=== PATIENT | male | born 1955 | race Caucasian/White ===

== ENCOUNTER → 2018-12-16 08:16 | Outpatient (CLI) | payer BC, SELFPAY ==
--- NOTE | 2018-12-16 08:22 | CT_ITS ---
CT lung screening EXAM: CT LUNG LOW DOSE WO CONTRAST HISTORY: ITS.REASON: H/O NICOTINE DEPENDENCE ORDERING PHYSICIAN: Jolanta Aparicio APRN PATIENT AGE: 63 years COMPARISON: None TECHNIQUE: The exam was performed on a GE Light Speed [address] scanner using 2.90 mGy CTDI. A low dose helical CT CHEST was performed on a multi-detector scanner. All CT scans at the facility use one or more dose reduction, viz: automated exposure control, ma/kV adjustment per patient size (including targeted exams where dose is matched to indication, i.e. head), or iterative reconstruction technique. The LDCT was performed in a facility that meets the criteria for the screening program. Data regarding this exam was submitted to ACR which is an approved registry. The order for this exam indicates that it came as a result of a lung cancer screening counseling shard decision-making visit that included all the elements required of such a visit including smoking cessation. The radiologist interpreting this exam meets the CMS criteria for the LDCT lung cancer screening program. The exam is reported using the Lung-RADS classification scale and reported to the ACR registry. NOTE: This study was performed for the specific purposes of lung cancer screening and is not an alternative to diagnostic chest CT. RADIATION DOSE: CTDI vol(CT dose Index-volume) = 2.90mG DLP (Dose Length Product) = 107.07 mGcm FINDINGS: There are mild paraseptal emphysematous changes. Old granulomatous disease Coronary artery calcifications No suspicious nodules. 4 cm left adrenal adenoma IMPRESSION: 1. Lung RADS Category: 2, benign 2. Other findings: As above RECOMMENDATIONS: 12 month LDCT follow-up
== END ==
PROVIDERS: PCP Internal Medicine Adolescent Medicine; Referring Provider Nurse Practitioner Family; Visit Provider Nurse Practitioner Family
DX: Z12.2 Encounter for screening for malignant neoplasm of respiratory organs (principal); Z87.891 Personal history of nicotine dependence

== ENCOUNTER → 2020-01-04 16:12 | Outpatient (CLI) | payer BC, SELFPAY ==
--- NOTE | 2020-01-04 | CA_ITS ---
APPROVED REPORT Left Lower Extremity Venous Study for DVT. Aircraft Body Repairer: Vivian Duffy, RT(R) Indications Lower Extremity Pain: Lower Extremity Edema: Left Current Smoker Risk Factors Patient denies trauma. States his left calf began swelling 1 week ago with pain primarily in posterior left calf. Vein Imaging CFV (L): compressive, spontaneous, phasic, augmentation FEM (L): compressive, spontaneous, phasic, augmentation POP (L): compressive, spontaneous, phasic, augmentation PTV (L): Compressible GSV (L): compressive, spontaneous, phasic, augmentation SSV (L): Compressible Peroneals (L):Compressible GAS (L): Compressible Conclusion No evidence of DVT or superficial thrombophlebitis in the veins scanned of the left lower extremity. Nonvascularized hypoechoic mass visualized in the popliteal fossa aspect of the left knee wiyh low level echos. This area extends to the medial aspect of the left knee. Consistent with complex bakers cyst , measuring 3.3 x 1.2 cm transverse, and 4.07 x 1.12 cm longitudinally. Hematoma included in differential diagnosis Critical Notification Physician Notified Date: 01/04/2020 Time: 17:04 Physician Name: Dr. Griffin Report Read Back Electronically signed by : Boston Murguia MD 01/05/2020 16:13:37
== END ==
PROVIDERS: PCP Internal Medicine Adolescent Medicine; Visit Provider Internal Medicine Adolescent Medicine
DX: I80.02 Phlebitis and thrombophlebitis of superficial vessels of left lower extremity (principal)
CPT/HCPCS: 93971

== ENCOUNTER → 2020-01-07 07:50 | Outpatient (CLI) | payer BC, SELFPAY ==
--- NOTE | 2020-01-07 07:56 | CT_ITS ---
PROCEDURE: CT LUNG SCREENING CLINICAL INDICATION: H/O NICOTINE DEPENDENCE 42 pack year smoking history. COMPARISON: CT LUNGSCREEN CT lung screening from 12/16/2018 TECHNIQUE: The exam was performed on a GE Light Speed [address] scanner using 2.90 mGy CTDI. A low dose helical CT CHEST was performed on a multi-detector scanner. All CT scans at the facility use one or more dose reduction, viz: automated exposure control, ma/kV adjustment per patient size (including targeted exams where dose is matched to indication, i.e. head), or iterative reconstruction technique. The LDCT was performed in a facility that meets the criteria for the screening program. Data regarding this exam was submitted to ACR which is an approved registry. The order for this exam indicates that it came as a result of a lung cancer screening counseling shard decision-making visit that included all the elements required of such a visit including smoking cessation. The radiologist interpreting this exam meets the CMS criteria for the LDCT lung cancer screening program. The exam is reported using the Lung-RADS classification scale and reported to the ACR registry. NOTE: This study was performed for the specific purposes of lung cancer screening and is not an alternative to diagnostic chest CT. RADIATION DOSE: CTDI vol(CT dose Index-volume) = 2.90mG DLP (Dose Length Product) = 113.07 mGcm Lung Rads Category: FINDINGS: COPD with scattered areas of scarring and evidence of old granulomatous disease. OTHER FINDINGS: Coronary artery calcifications. There is a left adrenal mass with an average density of -17 Hounsfield units. The nodule measures 4 cm not significantly changed consistent with an adenoma. There is a 4 mm hypodensity in the central up attic dome and 1 in the right hepatic lobe posteriorly measuring 6 mm. There is a too small to categorize.. The 6 mm nodule may be slightly larger and the 4 mm nodule is not readily apparent on the previous study possibly due to the technique. Consider six-month CT follow-up of the liver with hemangioma protocol. IMPRESSION: Lung rads category 1-. Recommend annual LD CT. Two indeterminate hepatic lesions. Suggest [address] follow-up with hemangioma protocol Dictated by: Boston Murguia MD 01/17/2020 09:21 Boston Murguia MD in [place] 01/17/2020 09:21
== END ==
PROVIDERS: PCP Internal Medicine Adolescent Medicine; Visit Provider Nurse Practitioner Family
DX: Z87.891 Personal history of nicotine dependence (principal); Z12.2 Encounter for screening for malignant neoplasm of respiratory organs

== ENCOUNTER → 2020-01-21 09:00 | Outpatient (CLI) | payer BC, SELFPAY ==
--- NOTE | 2020-01-21 09:03 | XR_ITS ---
PROCEDURE: XR KNEE LT 4V CLINICAL INDICATION: left knee pain COMPARISON: No exams were available for comparison FINDINGS: No fracture or dislocation. No lytic or blastic change. There is normal mineralization. There is mild joint space narrowing medially and there is minor spurring of the tibial spines. The patella is intact I see no definite effusion. There is moderate arthrosclerotic calcification of the superficial femoral artery and mild calcification of the popliteal artery. IMPRESSION: Minor degenerate changes of the medial joint compartment Dictated by: Dr. Javier Charles MD 01/21/2020 09:59 Dr. Javier Charles MD in [place] 01/21/2020 09:59
== END ==
PROVIDERS: PCP Internal Medicine Adolescent Medicine; Visit Provider Orthopaedic Surgery
DX: M25.562 Pain in left knee (principal)
CPT/HCPCS: 73564

== ENCOUNTER → 2020-05-01 19:05 | Outpatient (CLI) | payer BC, SELFPAY ==
--- NOTE | 2020-05-01 19:15 | XR_ITS ---
PROCEDURE: XR CHEST PORTABLE CLINICAL HISTORY: EXPOSURE TO COVID-19 COMPARISON: CT CT LUNG SCREENING from 01/07/2020 FINDINGS: The cardiomediastinal silhouette and pulmonary vascularity are within normal limits. Changes of COPD. There is vague increased density overlying the left lower lobe. This could be due to soft tissue attenuation or ground-glass infiltrate. Follow-up suggested to confirm stability or resolution. Calcified granuloma is present in the right upper lobe. No acute bony abnormalities. IMPRESSION: Vague increased density overlying the left lower lung zone and could be related to ground-glass infiltrate versus artifact from overlying soft tissue attenuation. Follow-up suggested Dictated by: Boston Murguia MD 05/02/2020 06:34 Boston Murguia MD in [place] 05/02/2020 06:34
[2020-05-03 15:16] LABS: Covid-19 Nasal PCR Sendout Lex Positive
== END ==
PROVIDERS: PCP Internal Medicine Adolescent Medicine; Visit Provider Nurse Practitioner Family
DX: Z20.828 Contact with and (suspected) exposure to other viral communicable diseases (principal); U07.1 COVID-19
CPT/HCPCS: 71045; U0004

== ENCOUNTER → 2020-12-13 17:02 | Outpatient (CLI) | payer BC, SELFPAY ==
[2020-12-13 17:23] LABS: Alanine Aminotransferase 21 U/L (12-78); Albumin Level 4.3 g/dl (3.5-5.0); Albumin/Globulin Ratio 1.8 (1.1-1.8); Alkaline Phosphatase 63 U/L (38-126); Anion Gap 14.2 mEq/L (5-15); Aspartate Amino Transferase 50 U/L (17-59); Bilirubin,Total 0.5 mg/dl (0.2-1.3); Blood Urea Nitrogen 26 mg/dl (9-20); Carbon Dioxide 27 mmol/L (22.0-30.0); Chloride 102 mmol/L (98-107); Chol/HDL Ratio 3.3 (1-3.5); Cholesterol 140 mg/dl (140-200); Estimated Glomerular Filt Rate 61 ml/min (>60); GFR (African American) 74 ML/MIN (>60); Globulin 2.4 g/dL (1.3-3.2); Glucose 157 mg/dl (74-100); HDL Cholesterol 43 mg/dl (40-60); Potassium 5.2 mmoL/L (3.5-5.1); Sodium 138 mmol/L (136-145); Total Protein,Serum 6.7 g/dl (6.3-8.2); Triglycerides 77 mg/dl (30-150); VLDL Cholesterol 15 mg/dL (0-40)
[2020-12-13 17:33] LABS: Hemoglobin A1C 7.4 % (4.0-6.0)
[2020-12-13 17:34] LABS: Direct LDL Cholesterol 81.32 mg/dL (100-129)
== END ==
PROVIDERS: Visit Provider Nurse Practitioner Family
DX: I10 Essential (primary) hypertension (principal); E78.5 Hyperlipidemia, unspecified; E11.9 Type 2 diabetes mellitus without complications; Z79.84 Long term (current) use of oral hypoglycemic drugs
CPT/HCPCS: 80053; 80061; 83036

== ENCOUNTER → 2022-12-12 15:29 | Outpatient (CLI) | payer BC, SELFPAY | PROVIDERS: PCP Internal Medicine Adolescent Medicine; Visit Provider Internal Medicine Adolescent Medicine | DX: G47.33 Obstructive sleep apnea (adult) (pediatric) (principal); R06.83 Snoring; I10 Essential (primary) hypertension; E66.9 Obesity, unspecified | CPT/HCPCS: G0399 ==

== ENCOUNTER → 2022-12-13 07:07 | Outpatient (CLI) | payer BC, SELFPAY ==
--- NOTE | 2022-12-13 07:11 | CT_ITS ---
FINAL REPORT TECHNIQUE: Axial images were obtained from the lung apex to the mid abdomen by computed tomography. This study was performed with techniques to keep radiation doses as low as reasonably achievable (ALARA). Individualized dose reduction techniques using automated exposure control or adjustment of mA and/or kV according to the patient's size were employed. CLINICAL HISTORY: H/O TOBACCO USE, smoker for 45 years, 1ppd FINDINGS: CHEST CT LOW DOSE CTDI vol (mGy): 2.80 DLP (mGy-cm): 110.72 There is severe left coronary artery calcification. There is no axillary adenopathy. There is no hilar or mediastinal adenopathy. The heart is normal in size. There is no pericardial or pleural effusion. There is mild emphysema and mild scarring. Several calcified granulomas are identified. Small presumed hepatic cysts seen on the prior are not visualized on the current exam. There is a stable 40 mm low-attenuation left adrenal mass, favor an adenoma. IMPRESSION: Severe left coronary artery calcification. Lung RADS category 1S. Recommend 12 month follow-up low-dose chest CT. Reviewed, Interpreted and Dictated by Cliff Munguia III, MD Transcribed by Alfreda Wagoner Authenticated and [facility]
== END ==
PROVIDERS: PCP Internal Medicine Adolescent Medicine; Visit Provider Nurse Practitioner Family
DX: Z87.891 Personal history of nicotine dependence (principal); Z12.2 Encounter for screening for malignant neoplasm of respiratory organs
CPT/HCPCS: 71271

== ENCOUNTER → 2023-01-24 09:29 | Outpatient (CLI) | payer BC, SELFPAY ==
--- NOTE | 2023-01-24 | CA_ITS ---
APPROVED REPORT Exam: Exercise Treadmill Technologist: Hetal Keyes, Ht: 5 ft 9 in Wt: 203 lbs BSA: 2.08 m2 HR: 64 bpm BP: 140/66 mmHg Rhythm: NSR Medical History Medications: Amlodipine,,,,, Lisinopril,,,,, Aspirin,,,,, Pravastatin,,,,, Metformin,,,,, Glimepiride,,,,, HCTZ,,,,, Sitagliptin phosphate,,,,, Stress Test Details Test: Lee HR Resting HR: 67 bpm Max Heart Rate (APMHR): 153 bpm Max HR Achieved: 189 bpm Target HR (85% APMHR): 130 bpm % of APMHR: 124 Recovery HR: 68 bpm HR response to stress: Normal HR response to stress BP Resting BP: 144.0/60.0 mmHg Max BP: 220.0/66.0 mmHg Recovery BP: 136.0/61.0 mmHg BP response to stress: Abnormal hypertensive response to stress. ECG Resting ECG: NSR, rightward axis, non-specific ST abnormalities, PACs Stress EC mm horizontal ST depression Arrhythmia: PACs, atrial couplets, PVCs, ventricular couplets Recovery ECG: Return to baseline within 5 minutes of recovery Recovery Arrhythmia: PACs, PVCs Clinical Exercise duration: 06:00 min Highest Stage Achieved: II Exercise capacity: 7.0 METs Overall Exercise Capacity for Age: Average Stress ECG Conclusion The patient was able to walk for a total of 6 minutes, 0 seconds. He achieved a total of 7.0 METS. He has average exercise capacity compared to age and sex matched peers. He has normal HR, but exaggerated hypertensive BP, response to exercise. Max HR: 144 % of PM: 94% Max BP: 216/70 METs: 7.0 Test stopped due to: SOA Symptoms: No CP. Arrhythmias/Ectopy: Frequent PACs, rare atrial couplet. Occ PVC, rare ventricular couplet. ST-T Changes: 1mm of horizontal ST depression. Conclusion: Average exercise capacity. Hypertensive BP response to exercise. Abnormal GXT findings suggestive of ischemia. GXT only (no imaging) Test Summary REST . . . . . . . Sitting REST . . . . . . . Standing REST 04:12 0.0 0.0 67 . 144/ 60 . . Stage 1 01:00 10.0 1.7 90 . . . . Stage 1 02:00 10.0 1.7 105 . . . . Stage 1 03:00 10.0 1.7 112 . 220/ 66 . . Stage 2 01:00 12.0 2.5 135 . . . . Stage 2 02:00 12.0 2.5 131 . . . . Stage 2 03:00 12.0 2.5 178 . 216/ 70 . Stop exercise at 06:00 RECOVERY 01:00 0.0 0.0 125 . . . . RECOVERY 02:00 0.0 0.0 99 . . . . RECOVERY 03:00 0.0 0.0 89 . 178/ 74 . . RECOVERY 04:00 0.0 0.0 79 . 171/ 62 . . RECOVERY 05:00 0.0 0.0 75 . 168/ 61 . . RECOVERY 06:00 0.0 0.0 75 . 168/ 61 . . RECOVERY 07:00 0.0 0.0 67 . 168/ 61 . . RECOVERY 07:31 0.0 0.0 70 . 136/ 61 . . Electronically signed by : Nicole Butler, 01/24/2023 22:53:47
== END ==
PROVIDERS: PCP Nurse Practitioner Family; Visit Provider Nurse Practitioner Family
DX: I25.10 Atherosclerotic heart disease of native coronary artery without angina pectoris (principal); I10 Essential (primary) hypertension
CPT/HCPCS: 93017

== ENCOUNTER 2023-08-18 11:36 | Outpatient (CLI) | payer BC, SELFPAY ==
[2023-08-18 12:12] LABS: Basophils # 0.1 K/mm3 (0-0.2); Basophils % 1.1 % (0.1-2.0); Eosinophils # 0.5 K/mm3 (0.0-0.4); Eosinophils % 7.8 % (0.1-12.0); Hematocrit 37.5 % (42.0-52.0); Hemoglobin 12.2 g/dL (14.1-18.0); Lymphocytes # 1.3 K/mm3 (0.7-4.5); Lymphocytes % 19.2 % (10-50); Mean Corpuscular HGB Conc 32.4 g/dL (31.8-35.4); Mean Corpuscular Hemoglobin 33.6 pg (27.0-31.2); Mean Corpuscular Volume 103.7 fl (80-94); Mean Platelet Volume 8.6 fl (7.4-10.4); Monocytes # 0.3 K/mm3 (0.1-1.0); Monocytes % 4.8 % (1.7-9.3); Neutrophils # 4.6 K/mm3 (1.8-7.8); Neutrophils % 67.1 % (37.0-80.0); Platelet Count 168 K/mm3 (142-424); Red Blood Count 3.62 M/mm3 (4.60-6.20); Red Cell Distribution Width 13.1 % (11.5-17.5); White Blood Count 6.8 K/mm3 (4.8-10.8)
[2023-08-18 13:14] LABS: Uric Acid 7.1 mg/dl (3.5-8.5)
== END 2023-08-18 23:59 ==
LOC: RT 11:37
PROVIDERS: PCP Internal Medicine Adolescent Medicine; Visit Provider Nurse Practitioner Family
DX: M79.604 Pain in right leg (principal); M79.89 Other specified soft tissue disorders
CPT/HCPCS: 36415; 84550; 85025; 93971

== ENCOUNTER 2023-12-17 09:12 | Outpatient (CLI) | payer BC, SELFPAY ==
--- NOTE | 2023-12-17 09:15 | CT_ITS ---
FINAL REPORT TECHNIQUE: Thin section axial images were obtained through the lungs using a low-dose technique per lung cancer screening protocol. Reconstruction images were obtained using the axial data. Exam was performed using dose reduction technique. CLINICAL HISTORY: HISTORY OF NICOTINE INDEPENDANCE current smoker 1ppd x 45 years COMPARISON: 12/13/2022 FINDINGS: 2.9 CTDLvol: 2.9 DLP: 115.16 Current smoker 45 pack year history Lungs: No acute pulmonary abnormality. Changes of emphysema are present, as well as changes of prior granulomatous disease. No suspicious nodules. Lymph nodes: No thoracic lymphadenopathy. Mediastinum: Heart size is normal. Prominent coronary artery calcifications are present. Pleura/pericardium: No pleural or pericardial effusion. Other: There is a stable 4.2 cm adrenal nodule which may contain fat. IMPRESSION: No suspicious pulmonary nodule or mass. Lung RADS: 1S, with the S designation for prominent coronary artery calcifications. Recommendation: 12-month follow-up LDCT Reviewed, Interpreted and Dictated by Florecita Brice MD Transcribed by Reva Talbot Authenticated and [facility]
--- NOTE | 2023-12-17 09:17 | US_ITS ---
FINAL REPORT CLINICAL HISTORY: .aaa screening COMPARISON: None FINDINGS: Sonographic images were obtained of the abdominal aorta. The abdominal aorta measures up to 21 mm in greatest dimensions. The common iliac arteries are within normal limits. IMPRESSION: No evidence of aortic aneurysm. Reviewed, Interpreted and Dictated by Florecita Brice MD Transcribed by Reva Talbot Authenticated and [facility]
== END 2023-12-17 23:59 | disposition home or self-care (01) ==
LOC: RAD 09:13
PROVIDERS: PCP Nurse Practitioner Family; Visit Provider Internal Medicine Adolescent Medicine
DX: Z87.891 Personal history of nicotine dependence (principal)
CPT/HCPCS: 71271; 76770

== ENCOUNTER 2024-12-16 08:38 | Outpatient (CLI) | payer BC, SELFPAY ==
--- OUTSIDE RECORDS SUMMARY | 2024-09-04 17:30 | XMS_ITS ---
Author Organization [facility] KIRSTIE Address [address] [place] [address] Care Team Providers Care Associate Director Name Role Phone Jolanta Aparicio Primary Care Provider Migration, Provider Unavailable Unavailable Allergies Allergen (clinical drug ingredient) Drug/Non Drug Allergy documented on EMR Reaction Allergy Type Onset Date Status Penicillin Unknown Drug Allergy [facility] Encounter Medications Medication SIG (Take, Route, Frequency, Duration) Notes Start Date End Date Status metFORMIN HCl 1000 MG 1 tab(s) orally 2 times a day; Duration: 90 Active amLODIPine Besylate 5 MG 1 tab(s) orally once a day; Duration: 30 Active Glimepiride 2 MG 1 tab(s) orally once a day; Duration: 90 days Active Famotidine 40 MG 1 tab(s) orally once a day (at bedtime); Duration: 30 days 08/26/2024 Active hydroCHLOROthiazide 25 MG 1 tab(s) orall y every morning; Duration: 30 Active Celecoxib 200 MG 1 cap(s) orally once a day; Duration: 90 days 10/07/2023 Active Lisinopril 40 MG 1/2tab orally twice a day; Duration: 90 days Active Pravastatin Sodium 80 MG 1 tab(s) orally once a day; Duration: 90 Active Vitamin C 500 MG 1 tab(s) orally once a day; Duration: 30 day(s) Active Vitamin D3 25 MCG (1000 UT) as directed orally once a day; Duration: 30 day(s) Active Jardiance 25 MG 1 tab(s) orally once a day (in the morning); Duration: 90 days Active GLUCOMETER WITH LANCETS AND TEST STRIPS DIRECTED *Please review for potential replacement for e-prescription and drug interaction check* 02/17/2014 Active Metoprolol Succinate ER 25 MG 1 tab(s) orally once a day Active Encounters Encounter Location Date Provider Diagnosis [facility] [place] [address] [place] [address] 09/04/2024 Provider Migration Diabetes mellitus without complication E11.9 Assessments Encounter Date Diagnosis (ICD Code) Assessment Notes Treatment Notes Treatment Clinical Notes Section Notes 09/04/2024 Diabetes mellitus without complication (ICD-10 - E11.9) Plan Of Treatment Medication Medication Name Sig Start Date Stop Date Notes metFORMIN HCl 1000 MG 1 tab(s) orally 2 times a day; Duration: 90 amLODIPine Besylate 5 MG 1 tab(s) orally once a day; Duration: 30 Glimepiride 2 MG 1 tab(s) orally once a day; Duration: 90 days Famotidine 40 MG 1 tab(s) orally once a day (at bedtime); Duration: 30 days 08/26/2024 hydroCHLOROthiazide 25 MG 1 tab(s) orall y every morning; Duration: 30 Pravastatin Sodium 80 MG 1 tab(s) orally once a day; Duration: 90 Jardiance 25 MG 1 tab(s) orally once a day (in the morning); Duration: 90 days Next Appt Details Provider Name:Jolanta cervantes, 12/29/2024 09:30:00 AM, [address], [address], Provider Name:Jolanta cervantes, 01/12/2025 09:15:00 AM, [address] [place] [address], [phone], Progress Notes * Forrest QUINTANAOB: [birth year] (69 yo M)Acc No.[id number]:09/04/2024 Patient: Vonda MARINELLIForrest BRIAN Provider: Scott Rico :1955 A ge:68 Y S ex:Male Date:09/04/2024 Address:[address] [place], [place] [id number] Pcp:Jolanta Aparicio Subjective: * Chief Complaints: * 1 . [facility] Conversion Encounter. * Medical History: * Medications: T aking Metoprolol Succinate ER 25 MG Tablet Extended Release 24 Hour 1 tab(s) orally once a day , Taking GLUCOMETER WITH LANCETS AND TEST STRIPS DIRECTED , Notes to Pharmacist: *Please review for potential replacement for e-prescription and drug interaction check*, Taking Vitamin D3 25 MCG (1000 UT) Tablet as directed orally once a day , Taking Vitamin C 500 MG Tablet 1 tab(s) orally once a day , Taking Celecoxib 200 MG Capsule 1 cap(s) orally once a day , Taking Lisinopril 40 MG Tablet 1/2tab orally twice a day * Allergies: P enicillin. Objective: * Vitals: Assessment: * Assessment: 1. D iabetes mellitus without complication - E11.9 Plan: * Treatment: 2. O thers Start Glimepiride Tablet, 2 MG, 1 tab(s), orally, once a day, 90 days, 90 Tablet, Refills 2; S tart Pravastatin Sodium Tablet, 80 MG, 1 tab(s), orally, once a day, 90, 90, Refills 2; S tart metFORMIN HCl Tablet, 1000 MG, 1 tab(s), orally, 2 times a day, 90, 180, Refills 1; S tart amLODIPine Besylate Tablet, 5 MG, 1 tab(s), orally, once a day, 30, 30, Refills 2; S tart hydroCHLOROthiazide Tablet, 25 MG, 1 tab(s), orally, every morning, 30, 30, Refills 2; S tart Famotidine Tablet, 40 MG, 1 tab(s), orally, once a day (at bedtime), 30 days, 30, Refills 2. * * Electronic signature of Prov ider Migration on 12/16/2024 at 08:40 AM EDT Sign off status: Pending * Provider: Scott plummer Migration Date: 09/04/2024 Generated for Enzo cunningham/Sabrina/Palmira on: 12/16/2024 08:40 AM EDT
--- OUTSIDE RECORDS SUMMARY | 2024-12-02 10:25 | XMS_ITS ---
Author Organization [facility] [place]IRSTIE Address [address] [place] [address] Care Team Providers Care Broom Handle Dipper Name Role Phone Jolanta Aparicio Primary Care Provider [phone] Encounters Encounter Location Date Provider Diagnosis [facility] [place] [address] [place] [address] 12/02/2024 Jolanta Aparicio Personal history of tobacco use Z87.891 Assessments Encounter Date Diagnosis (ICD Code) Assessment Notes Treatment Notes Treatment Clinical Notes Section Notes 12/02/2024 Personal history of tobacco use (ICD-10 - Z87.891) Plan Of Treatment Pending Test Test Name Order Date CT Scan : Chest, Lung Cancer Screening 0 12/02/2024 Next Appt Details Provider Name:Jolanta Lyn Neeta cervantes, 12/29/2024 09:30:00 AM, [address] [place] [address], [phone], Provider Name:Jolanta Lyn Neeta cervantes, 01/12/2025 09:15:00 AM, [address] [place] [address], [phone], Progress Notes * Forrest QUINTANAOB: [birth year] (69 yo M)Acc No.[id number]:12/02/2024 Patient: Vonda MARINELLIForrest BRIAN :1955 A ge:69 Y S ex:Male Address:[address] [place] [address], [place], [address] Subjective: * Chief Complaints: * * Medical History: * Surgical History: * Hospitalization/Major Diagno stic Procedure: * Medications: Objective: * Vitals: * Physical Examination: Assessment: * Assessment: 1. P ersonal history of tobacco use - Z87.891 Plan: * Treatment: * * Procedure Codes: * true * Date: Generated for Enzo cunningham/Sabrina/Palmira on: 0 12/16/2024 08:40 AM EDT
--- NOTE | 2024-12-16 08:40 | CT_ITS ---
FINAL REPORT CLINICAL HISTORY: SCREENING Former smoker of 1 pack per day for the past 46 years. Patient is on occasion exposed to diesel fumes/second hand smoke COMPARISON: 12/17/2023 FINDINGS: CT CHEST LOW DOSE SCREENING DOSE: CTDIvol: 2.90 mGy, DLP: 117.50 mGy*cm TECHNIQUE: Axial CT without IV contrast administration using low dose protocol. This study was performed with techniques to keep radiation doses as low as reasonably achievable, (ALARA). Individualized dose reduction techniques using automated exposure control or adjustment of mA and/or kV according to the patient''s size were employed. No acute lung disease is present . No pulmonary lesions are seen suspicious for neoplasm. There is evidence of old calcified granulomatous disease. No pleural or pericardial effusion is seen . No adenopathy or mass lesion is present . 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 IMPRESSION: 1. No evidence of lung cancer LUNG RADS CATEGORY 1 RECOMMENDATION: 12 month LDCT follow up Reviewed, Interpreted and Dictated by Flora Vasquez MD Transcribed by Alfreda Wagoner Authenticated and [facility]
--- OUTSIDE RECORDS SUMMARY | 2024-12-16 08:40 | XMS_ITS | Patient Health Record ---
Author Organization [facility] KIRSTIE Address [address] [place] [address] Care Team Providers Care Wildlife Photographer Name Role Phone Jolanta Aparicio Primary Care Provider Migration, Provider Unavailable Unavailable Allergies Allergen (clinical drug ingredient) Drug/Non Drug Allergy documented on EMR Reaction Allergy Type Onset Date Status Penicillin Unknown Drug Allergy Active Results Component Value Reference Range Notes PSA, TOTAL (5363) Reviewed date:12/08/2024 08:41:28 AM Interpretation: Performing Lab:NEYDA [facility] [id number], [place] SocialPvneDU[address] Jonah Espinal Notes/Report: NON-FASTING; NON-FASTING; NON-FASTING; NON-FASTING; NON-FAST FASTING:YES FASTING: YES PSA, TOTAL 0.42 < OR = 4.00 ng/mL The total PSA value from this assay system is standardized against the WHO standard. The test result will be approximately 20% lower when compared to the equimolar-standardized total PSA (Kemal [place]). Comparison of serial PSA results should be interpreted with this fact in mind. This test was performed using the Siemens chemiluminescent method. Values obtained from different assay methods cannot be used interchangeably. PSA levels, regardless of value, should not be interpreted as absolute evidence of the presence or absence of disease. HEMOGLOBIN A1c (496) Reviewed date:12/08/2024 08:41:28 AM Interpretation: Performing Lab:NEYDA [facility] [id number], [place] Jonah Espinal Notes/Report: NON-FASTING; NON-FASTING; NON-FASTING; NON-FASTING; NON-FAST FASTING:YES FASTING: YES HEMOGLOBIN A1c 7.2 <5.7 % For someone without known diabetes, a hemoglobin A1c value of 6.5% or greater indicates that they may have diabetes and this should be confirmed with a follow-up test. For someone with known diabetes, a value <7% indicates that their diabetes is well controlled and a value greater than or equal to 7% indicates suboptimal control. A1c targets should be individualized based on duration of diabetes, age, comorbid conditions, and other considerations. Currently, no consensus exists regarding use of hemoglobin A1c for diagnosis of diabetes for children. CBC (INCLUDES DIFF/PLT) (639 9) Reviewed date:12/08/2024 08:41:28 AM Interpretation: Performing Lab:NEYDA, [facility] [facility], Roberto GarciaOqmyQY[address] Jonah Espinal Notes/Report: NON-FASTING; NON-FASTING; NON-FASTING; NON-FASTING; NON-FAST FASTING:YES FASTING: YES WHITE BLOOD CELL COUNT 8.2 3.8-10.8 Thousand/ uL RED BLOOD CELL COUNT 3.86 4.20-5.80 Million/uL HEMOGLOBIN 13.0 13.2-17.1 g/dL HEMATOCRIT 39.9 38.5-50.0 % MCV 103.4 80.0-100.0 fL MCH 33.7 27.0-33.0 pg MCHC 32.6 32.0-36.0 g/dL For adults, a slight decrease in the calculated MCHC value (in the range of 30 to 32 g/dL) is most likely not clinically significant; however, it should be interpreted with caution in correlation with other red cell parameters and the patient's clinical condition. RDW 12.1 11.0-15.0 % PLATELET COUNT 172 140-400 Thousand/uL MPV 10.3 7.5-12.5 fL ABSOLUTE NEUTROPHILS 5305 3529-7524 cells/uL ABSOLUTE LYMPHOCYTES 7460 601-1927 cells/uL ABSOLUTE MONOCYTES 697 200-950 cells/uL ABSOLUTE EOSINOPHILS 369 15-500 cells/uL ABSOLUTE BASOPHILS 74 0-200 cells/uL NEUTROPHILS 64.7 LYMPHOCYTES 21.4 MONOCYTES 8.5 EOSINOPHILS 4.5 BASOPHILS 0.9 COMPREHENSIVE METABOLIC PANE L (20855) Reviewed date:12/08/2024 08:41:28 AM Interpretation: Performing Lab:NEYDA [facility] [id number] [place], [facility] ClinicVhzbMI[address] Jonah Espinal Notes/Report: NON-FASTING; NON-FASTING; NON-FASTING; NON-FASTING; NON-FAST FASTING:YES FASTING: YES GLUCOSE 130 65-99 mg/dL Fasting reference interval For someone without known diabetes, a glucose value >125 mg/dL indicates that they may have diabetes and this should be confirmed with a follow-up test. UREA NITROGEN (BUN) 29 7-25 mg/dL CREATININE 1.80 0.70-1.35 mg/dL EGFR 40 > OR = 60 mL/min/1.73m2 BUN/CREATININE RATIO 16 6-22 (calc) SODIUM 138 135-146 mmol/L POTASSIUM 5.5 3.5-5.3 mmol/L CHLORIDE 103 98-110 mmol/L CARBON DIOXIDE 27 20-32 mmol/L CALCIUM 9.2 8.6-10.3 mg/dL PROTEIN, TOTAL 7.0 6.1-8.1 g/dL ALBUMIN 4.6 3.6-5.1 g/dL GLOBULIN 2.4 1.9-3.7 g/dL (calc) ALBUMIN/GLOBULIN RATIO 1.9 1.0-2.5 (calc) BILIRUBIN, TOTAL 0.5 0.2-1.2 mg/dL ALKALINE PHOSPHATASE 79 35-144 U/L AST 15 10-35 U/L ALT 14 9-46 U/L LIPID PANEL, STANDARD (7600) Reviewed date:12/08/2024 08:41:27 AM Interpretation: Performing Lab:[facility] [id number] [place], [facility] ClinicAxvgNI[address] Jonah Espinal Notes/Report: NON-FASTING; NON-FASTING; NON-FASTING; NON-FASTING; NON-FAST FASTING:YES FASTING: YES CHOLESTEROL, TOTAL 141 <200 mg/dL HDL CHOLESTEROL 38 > OR = 40 mg/dL TRIGLYCERIDES 252 <150 mg/dL If a non-fasting specimen was collected, consider repeat triglyceride testing on a fasting specimen if clinically indicated. Germaine et al. J. of Clin. Lipidol. 2015;9:129-169. LDL-CHOLESTEROL 70 Reference range: <100 Desirable range <100 mg/dL for primary prevention; <70 mg/dL for patients with CHD or diabetic patients with > or = 2 CHD risk factors. LDL-C is now calculated using the Urbano calculation, which is a validated novel method providing better accuracy than the Friedewald equation in the estimation of LDL-C. Adolfo MONTEJO et al. ALEXEY. 2013;310(05): 0740-9737 (http://education.Selphee/faq/AAI965) CHOL/HDLC RATIO 3.7 <5.0 (calc) NON HDL CHOLESTEROL 103 <130 mg/dL (calc) For patients with diabetes plus 1 major ASCVD risk factor, treating to a non-HDL-C goal of <100 mg/dL (LDL-C of <70 mg/dL) is considered a therapeutic option. IRON, TIBC AND FERRITIN DEBBIE Lyn (5616) Reviewed date:12/08/2024 08:41:27 AM Interpretation: Performing Lab:NEYDA [facility], Extra[place]GrabBJ[address] Jonah Espinal Notes/Report: NON-FASTING; NON-FASTING; NON-FASTING; NON-FASTING; NON-FAST FASTING:YES FASTING: YES IRON, TOTAL 80 50-180 mcg/dL IRON BINDING CAPACITY 292 250-425 mcg/dL (angelito c) % SATURATION 27 20-48 % (calc) FERRITIN 71 24-380 ng/mL Urinalysis Reviewed date:10/13/2024 05:12:39 PM Interpretation: Performing Lab: Notes/Report: Color/Clarity yellow Leuk neg Nitrite neg Urobili 0.2 Protein trace pH 5.5 Blood neg Sp. Gr. 1.015 Ketone neg Bili neg Glucose >=1000mg QUANTIFERON(R)-TB GOLD PLUS, 1 TUBE (59161) Reviewed date:05/21/2024 08:22:43 AM Interpretation: Performing Lab:NEYDA [facility], ExtraFootieGhmqJN[address] Jonah Espinal Notes/Report: NON-FASTING QUANTIFERON(R)-TB GOLD PLUS, 1 TUBE NEGATIVE NEGATIVE Negative test result. M. tuberculosis complex infection unlikely. NIL 0.08 MITOGEN-NIL 9.26 TB1-NIL 0.06 TB2-NIL 0.07 The Nil tube value reflects the background interferon gamma immune response of the patient's blood sample. This value has been subtracted from the patient's displayed TB and Mitogen results. Lower than expected results with the Mitogen tube prevent false-negative Quantiferon readings by detecting a patient with a potential immune suppressive condition and/or suboptimal pre-analytical specimen handling. The TB1 Antigen tube is coated with the M. tuberculosis-specific antigens designed to elicit responses from TB antigen primed CD4+ helper T-lymphocytes. The TB2 Antigen tube is coated with the M. tuberculosis-specific antigens designed to elicit responses from TB antigen primed CD4+ helper and CD8+ cytotoxic T-lymphocytes. For additional information, please refer to https://education.Gigwell/faq/WKK176 (This link is being provided for informational/ educational purposes only.) Medications Medication SIG (Take, Route, Frequency, Duration) Notes Start Date End Date Status metFORMIN HCl 1000 MG 1 tab(s) orally 2 times a day; Duration: 90 Active Vitamin C 500 MG 1 tab(s) orally once a day; Duration: 30 day(s) Active hydroCHLOROthiazide 25 MG 1 tab(s) orall y every morning; Duration: 30 Active amLODIPine Besylate 5 MG TAKE 1 TABLET B Y MOUTH EVERY DAY; Duration: 30 Active Celecoxib 200 MG 1 cap(s) orally twice a day; Duration: 90 days Active Jardiance 25 MG 1 tab(s) orally once a day (in the morning); Duration: 30 days Active Lisinopril 10 MG 1 tablet Orally twice a day; Duration: 30 days 12/08/2024 Active Vitamin D3 25 MCG (1000 UT) as directed orally once a day; Duration: 30 day(s) Active GLUCOMETER WITH LANCETS AND TEST STRIPS DIRECTED *Please review for potential replacement for e-prescription and drug interaction check* 02/17/2014 Active Metoprolol Succinate ER 25 MG 1 tab(s) orally once a day Active Pravastatin Sodium 80 MG 1 tab(s) orally once a day; Duration: 90 days Active Glimepiride 2 MG 1 tab(s) orally once a day; Duration: 90 days Active Famotidine 40 MG 1 tab(s) orally once a day (at bedtime); Duration: 30 days Active Immunizations Vaccine Route Administration Date Status Comme nts SHINGRIX IM Intramuscular 07/01/2022 Administered SHINGRIX IM Intramuscular 06/04/2023 Administered Prevnar PCV-20 (Pneumococcal conjugate 20) IM Intramuscular 07/01/2022 Administered Influenza-Fluzone 3+years (NON-MEDICARE) IM Intramuscular 04/14/2018 Administered Fluzone High Dose IM Intramuscular 04/06/2021 Administered FLULAVAL IM Intramuscular 03/12/2019 Administered Arexvy IM Intramuscular 06/04/2023 Administered Problems Problem Type SNOMED Code ICD Code Onset Dates Problem Status W/U Status Risk Notes Problem Hyperlipidemia (00705527) Hyperlipidemia, unspecified (E78.5) Active confirmed Problem Tobacco use (873009812) Tobacco use (Z72.0) Active confirmed Problem Essential hypertension (51642564) Essential hypertension (I10) Active confirmed Problem Edema of right lower extremity (727508904) Edema of right lower extremity (R60.0) Active confirmed Problem Pulmonary nodule (321273000) Pulmonary nodule (R91.1) Active confirmed Problem 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 Problem Type II diabetes mellitus without complication (759236674) Diabetes mellitus without complication (E11.9) Active confirmed Problem Allergic rhinitis caused by pollen (39870312) Seasonal allergic rhinitis due to pollen (J30.1) Active confirmed Problem Obstructive sleep apnea syndrome (52740437) WILL on CPAP (G47.33) Active confirmed Problem Varicose veins of both lower limbs (24979045509790225 ) Varicose veins of both lower extremities (I83.93) Active confirmed Problem Personal history of tobacco use (Z87.891) Active confirmed Problem Does use hearing aid (finding) (378295080) Hearing aid worn (Z97.4) Active confirmed Problem Anemia (487501341) Mild anemia (D64.9) Active confirmed Problem Sensorineural hearing loss (24880528) Perceived hearing loss (H90.5) Active confirmed Problem Acute tear of meniscus of right knee (disorder) (32282544342479593 ) Tear of meniscus of right knee as current injury, unspecified meniscus, unspecified tear type, subsequent encounter (S83.206D) Active confirmed Vital Signs Heart Rate 72 /min 10/13/2024 Temperature 97.4 degrees Fahrenheit 10/13/2024 Blood pressure diastolic 62 mm Hg 10/13/2024 Height 69 in 10/13/2024 Blood pressure systolic 138 mm Hg 10/13/2024 Weight 197.8 lbs 10/13/2024 BMI 29.21 kg/m2 10/13/2024 Encounters Encounter Location Date Provider Diagnosis [facility] [address] [facility] [address] [place] [address] 09/04/2024 Provider Migration Diabetes mellitus without complication E11.9 [facility] [address] [address] 10/13/2024 Jolanta Aparicio Essential hypertension I10 ; 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 (commercial 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 Z02.4 ; Hyperlipidemia, unspecified E78.5 ; Diabetes mellitus without complication E11.9 ; WILL on CPAP G47.33 ; Mild anemia D64.9 ; Screening PSA (prostate specific antigen) Z12.5 and Personal history of tobacco use Z87.891 [facility] [address] [address] 05/17/2024 Jolanta Aparicio Screening for tuberculosis Z11.1 [facility] [address] [address] 08/26/2024 Jolanta Alessandra [facility] [address] [facility] [address] [place] [address] 10/13/2024 Jolanta Alessandra [facility] [address] [address] 11/25/2024 Jolanta Alessandra [facility] [address] [address] 11/30/2024 Jolantameaghan RicciAlessandra Tear of meniscus of right knee as current injury, unspecified meniscus, unspecified tear type, subsequent encounter S83.206D [facility] [address] [facility] [address] [place] [address] 12/02/2024 Jolanta Alessandra Personal history of tobacco use Z87.891 [facility] [address] [address] 12/08/2024 Jolanta Alessandra Assessments Encounter Date Diagnosis (ICD Code) Assessment Notes Treatment Notes Treatment Clinical Notes Section Notes 05/17/2024 Screening for tuberculosis (ICD-10 - Z11.1) 09/04/2024 Diabetes mellitus without complication (ICD-10 - E11.9) 10/13/2024 Essential hypertension (ICD-10 - I10) well controlled and asymptomatic on current regimen 10/13/2024 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 fasting labs again in 3-4 months recommended 10/13/2024 WILL on CPAP (ICD-10 - G47.33) tolerating well and symptoms improved, continue FU with [facility] sleep clinic 10/13/2024 Mild anemia (ICD-10 - D64.9) asymptomatic, stool neg occult blood, monitor 10/13/2024 Screening PSA (prostate specific antigen) (ICD-10 - Z12.5) 10/13/2024 Personal history of tobacco use (ICD-10 - Z87.891) Plan Of Treatment Pending Test Test Name Order Date Cardiac GXT 12/25/2022 Venous Doppler : Lower Extremity 024 Venous Doppler : Lower Extremity 014 Cardiolite GXT 12/18/2022 H-CMP 02/05/2017 H-LIPID PANEL 02/05/2017 H-HGBA1C 02/05/2017 C-CBC 12/01/2018 C-CBC 02/08/2014 C-CMP 02/08/2014 C-CMP 06/04/2017 C-CMP 12/01/2018 C-CMP 12/22/2019 C-CMP 06/21/2020 C-CMP 01/14/2018 C-LIPID PANEL 01/14/2018 C-LIPID PANEL 02/08/2014 C-LIPID PANEL 12/22/2019 C-LIPID PANEL 12/01/2018 C-LIPID PANEL 06/04/2017 C-TSH 02/08/2014 C-HGBA1C 01/14/2018 C-HGBA1C 12/22/2019 C-HGBA1C 12/01/2018 C-HGBA1C 06/04/2017 C-HGBA1C 06/21/2020 C-HGBA1C 02/08/2014 Lipid Panel 07/01/2022 M-Complete Blood Count Auto Diff 024 M-Comprehensive Metabolic Panel 06/04/19 M-Basic Metabolic Panel 08/02/2020 M-Hemoglobin A1C 06/04/2023 M-Ferritin 06/04/2023 M-Lipid Panel 06/04/2023 M-Vitamin B12 06/04/2023 M-Folate 06/04/2023 M-Iron and TIBC 06/04/2023 M-Microalb/Creat Ratio, Randm Ur 024 CT Scan : Chest, Lung Cancer Screening 0 12/02/2024 M-COVID WITH RESPIRATORY PANEL 0 Comprehensive Metabolic Panel (CMP) 06/04 Hemoglobin A1C 07/01/2022 FERRITIN (457) 10/13/2024 Next Appt Details Provider Name:Jolanta Riki cervantes, 12/29/2024 09:30:00 AM, [address] [place] [address], [phone], Provider Name:Jolanta cervantes, 01/12/2025 09:15:00 AM, [address] [place] [address], [phone], Insurance Providers Payer Name Payer Address Payer Phone Subscriber Number Group Number Insured Name Patient Relationship to Insured Coverage Start Date Coverage End Date [facility] [address] [place] [address] [phone] [id number] Forrest Renner Self - patient is the insured Medical (General) History Medical History History ICD Code DM HTN HLD Tobacco use.. normal LDCT 12/23 C-scope 11/2018 with isolated hyperplasti c polyp COVID April 2020 wears hearing aids WILL on CPAP Negative LHC 05/2023 at [facility] Normal AAA screen 12/23 Surgical History Surgery Date(Month/Year) colonoscopy - reportedly normal at age 5 2 Left Heart Cath, normal 05/2023 Hospitalization History Reason Date(Month/Year) chest pain 2007
--- OUTSIDE RECORDS SUMMARY | 2024-12-16 08:41 | XMS_ITS ---
Author Organization Unknown Medications Medication Instructions Effective Dates (start - stop) Status - 6169-83-74Z83:00 :00.000+00 :00 - Completed pravastatin sodium 80 MG Oral Tablet 6883-05-25V45:00:00.00 :00 - Completed pravastatin sodium 80 MG Oral Tablet 0587-42-67N59:00:00.000+00 :00 - Completed pravastatin sodium 80 MG Oral Tablet 3271-03-06U98:00:00.000+00 :00 - Completed pravastatin sodium 80 MG Oral Tablet 1832-58-13X48:00:00.00000 :00 - Completed pravastatin sodium 80 MG Oral Tablet 7021-86-32S62:00:00.000+00 :00 - Completed pravastatin sodium 80 MG Oral Tablet 0660-69-19S75:00:00.000+00 :00 - Completed pravastatin sodium 80 MG Oral Tablet 9627-14-58Y23:00:00.000+00 :00 - Completed pravastatin sodium 80 MG Oral Tablet 9904-97-85S03:00:00.000+00 :00 - Completed pravastatin sodium 80 MG Oral Tablet 3304-42-68M15:00:00.000+00 :00 - Completed pravastatin sodium 80 MG Oral Tablet 6962-51-32M41:00:00.000+00 :00 - Completed pravastatin sodium 80 MG Oral Tablet 6565-70-34I04:00:00.000+00 :00 - Completed pravastatin sodium 80 MG Oral Tablet 5682-21-11C05:00:00.000+00 :00 - Completed metformin hydrochloride 1000 MG Oral Tablet 4045-82-77H69:00:00.000+00 :00 - Completed metformin hydrochloride 1000 MG Oral Tablet 9455-75-30T21:00:00.000+00 :00 - Completed metformin hydrochloride 1000 MG Oral Tablet 2061-56-80I99:00:00.000+00 :00 - Completed metformin hydrochloride 1000 MG Oral Tablet 6260-44-15Z18:00:00.000+00 :00 - Completed metformin hydrochloride 1000 MG Oral Tablet 9225-13-02U50:00:00.000+00 :00 - Completed metformin hydrochloride 1000 MG Oral Tablet 8789-78-07C57:00:00.000+00 :00 - Completed metformin hydrochloride 1000 MG Oral Tablet 6570-01-92Z53:00:00.000+00 :00 - Completed metformin hydrochloride 1000 MG Oral Tablet 3117-38-94T68:00:00.000+00 :00 - Completed metformin hydrochloride 1000 MG Oral Tablet 6302-61-98C29:00:00.000+00 :00 - Completed metformin hydrochloride 1000 MG Oral Tablet 8412-94-50H77:00:00.000+00 :00 - Completed metformin hydrochloride 1000 MG Oral Tablet 1117-50-65S12:00:00.000+00 :00 - Completed metformin hydrochloride 1000 MG Oral Tablet 6404-52-14T69:00:00.000+00 :00 - Completed amlodipine 5 MG Oral Tablet 2021:00:00.000+00 :00 - Completed amlodipine 5 MG Oral Tablet 2021:00:00.000+00 :00 - Completed amlodipine 5 MG Oral Tablet 2021:00:00.000+00 :00 - Completed amlodipine 5 MG Oral Tablet 2021:00:00.000+00 :00 - Completed amlodipine 5 MG Oral Tablet 2021:00:00.000+00 :00 - Completed lisinopril 40 MG Oral Tablet 08-06-02:00:00.000+00 :00 - Completed lisinopril 40 MG Oral Tablet 08-05-07:00:00.000+00 :00 - Completed lisinopril 40 MG Oral Tablet 08-02-06:00:00.000+00 :00 - Completed lisinopril 40 MG Oral Tablet 07-31-09:00:00.000+00 :00 - Completed lisinopril 40 MG Oral Tablet 07-13-09:00:00.000+00 :00 - Completed lisinopril 40 MG Oral Tablet 07-11-11:00:00.000+00 :00 - Completed amlodipine 5 MG Oral Tablet 2022:00:00.000+00 :00 - Completed amlodipine 5 MG Oral Tablet 2022:00:00.000+00 :00 - Completed glimepiride 2 MG Oral Tablet 08-06-14:00:00.000+00 :00 - Completed glimepiride 2 MG Oral Tablet 08-05-14:00:00.000+00 :00 - Completed glimepiride 2 MG Oral Tablet 08-04-14:00:00.000+00 :00 - Completed amlodipine 5 MG Oral Tablet 2022:00:00.000+00 :00 - Completed amlodipine 5 MG Oral Tablet 2022:00:00.000+00 :00 - Completed amlodipine 5 MG Oral Tablet 2022:00:00.000+00 :00 - Completed amlodipine 5 MG Oral Tablet 2022:00:00.000+00 :00 - Completed amlodipine 5 MG Oral Tablet 2022:00:00.000+00 :00 - Completed hydrochlorothiazide 25 MG Or al Tablet 2466-61-57I66:00:00.000+00 :00 - Completed hydrochlorothiazide 25 MG Or al Tablet 2614-38-89I58:00:00.000+00 :00 - Completed hydrochlorothiazide 25 MG Or al Tablet 1190-24-49P07:00:00.000+00 :00 - Completed hydrochlorothiazide 25 MG Or al Tablet 1505-24-20P65:00:00.000+00 :00 - Completed hydrochlorothiazide 25 MG Or al Tablet 8067-16-66G14:00:00.000+00 :00 - Completed hydrochlorothiazide 25 MG Or al Tablet 2520-93-52I80:00:00.000+00 :00 - Completed hydrochlorothiazide 25 MG Or al Tablet 4310-28-27M88:00:00.000+00 :00 - Completed hydrochlorothiazide 25 MG Or al Tablet 4582-57-17S92:00:00.000+00 :00 - Completed hydrochlorothiazide 25 MG Or al Tablet 3065-15-39Y72:00:00.000+00 :00 - Completed hydrochlorothiazide 25 MG Or al Tablet 2585-98-32F63:00:00.000+00 :00 - Completed hydrochlorothiazide 25 MG Or al Tablet 5263-56-41D00:00:00.000+00 :00 - Completed hydrochlorothiazide 25 MG Or al Tablet 9265-97-44H42:00:00.000+00 :00 - Completed glimepiride 2 MG Oral Tablet 202 08-03-05:00:00.000+00 :00 - Completed glimepiride 2 MG Oral Tablet 202 08-02-06:00:00.000+00 :00 - Completed glimepiride 2 MG Oral Tablet 202 07-31-26:00:00.000+00 :00 - Completed glimepiride 2 MG Oral Tablet 202 07-14-15:00:00.000+00 :00 - Completed glimepiride 2 MG Oral Tablet 07-13-17:00:00.000+00 :00 - Completed glimepiride 2 MG Oral Tablet 202 07-12-17:00:00.000+00 :00 - Completed glimepiride 2 MG Oral Tablet 202 07-11-05:00:00.000+00 :00 - Completed glimepiride 2 MG Oral Tablet 202 07-10-04:00:00.000+00 :00 - Completed Patient Care team information Name Category Status Period Participants - - Proposed period not known -
== END 2024-12-16 23:59 | disposition home or self-care (01) ==
LOC: RAD 08:39
PROVIDERS: PCP Nurse Practitioner Family; Visit Provider Nurse Practitioner Family
DX: Z12.2 Encounter for screening for malignant neoplasm of respiratory organs (principal); E27.9 Disorder of adrenal gland, unspecified; Z87.891 Personal history of nicotine dependence
CPT/HCPCS: 71271

== ENCOUNTER 2024-12-26 07:25 | Emergency (ER) | payer BC, SELFPAY ==
--- OUTSIDE RECORDS SUMMARY | 2024-09-04 17:30 | XMS_ITS ---
Author Organization [facility] KIRSTIE Address [address] [place] [address] Care Team Providers Care Psych Np Name Role Phone Jolanta Aparicio Primary Care Provider [phone] Migration, Provider Unavailable Unavailable Allergies Allergen (clinical drug ingredient) Drug/Non Drug Allergy documented on EMR Reaction Allergy Type Onset Date Status Penicillin Unknown Drug Allergy Active [facility]version Encounter Medications Medication SIG (Take, Route, [...] Active Encounters Encounter Location Date Provider Diagnosis [facility] [place] [address] [place] [address] 09/04/2024 Provider Migration Diabetes mellitus without complication [...] Provider Name:Jolanta cervantes, 12/29/2024 09:30:00 AM, [address], [id number], Provider Name:Jolanta cervantes, 01/12/2025 09:15:00 AM, [address] [place] [address], [phone], Progress Notes * Forrest QUINTANAOB: [birth year] (69 yo M)Acc No.[id number]:09/04/2024 Patient: Vonda MARINELLIForrest BRIAN Provider: Scott Rico :1955 A ge:68 Y S ex:Male Date:09/04/2024 Address:[address] [place], [place] [id number] Pcp:Jolanta Aparicio Subjective: * Chief Complaints: * [...] Electronic signature of Prov ider Migration on 12/26/2024 at 07:37 AM EDT Sign off status: Pending * Provider: Scott plummer Migration Date: 09/04/2024 Generated for Enzo cunningham/Sabrina/Palmira on: 12/26/2024 07:37 AM EDT
--- OUTSIDE RECORDS SUMMARY | 2024-12-02 10:25 | XMS_ITS ---
Author Organization [facility] KIRSTIE Address [address] [place], [place] [address] Care Team Providers Care Music Intern Name Role Phone Jolanta Aparicio Primary Care Provider Results Component Value Reference Range Notes CT Scan : Chest, Lung Cancer Screening Reviewed date:12/17/2024 12:35:03 PM Interpretation: Performing Lab: Notes/Report: Encounters Encounter Location Date Provider Diagnosis [facility] [place] [address] [place], [place] [address] 12/02/2024 Jolanta Aparicio Personal history of tobacco use Z87.891 Assessments Encounter Date Diagnosis (ICD Code) Assessment Notes Treatment Notes Treatment Clinical Notes Section Notes 12/02/2024 Personal history of tobacco use (ICD-10 - Z87.891) Plan Of Treatment Next Appt Details Provider Name:Jolanta cervantes, 12/29/2024 09:30:00 AM, [address], [address], Provider Name:Jolanta cervantes, 01/12/2025 09:15:00 AM, [address] [place] [address], [address], Progress Notes * Forrest QUINTANAOB: [birth year] (69 yo M)Acc No.[id number]:12/02/2024 Patient: Vonda Forrest HARDY :1955 A ge:69 Y S ex:Male Address:[address] [place] [address], [address] Subjective: * Chief Complaints: * * Medical History: * Surgical History: * Hospitalization/Major Diagno stic Procedure: * Medications: Objective: * Vitals: * Physical Examination: Assessment: * Assessment: 1. P ersonal history of tobacco use - Z87.891 Plan: * Treatment: * * Procedure Codes: * true * Date: Generated for Enzo cunningham/Sabrina/Clifsmitting on: 0 12/26/2024 07:37 AM EDT
[2024-12-26] VITALS (7 sets, daily range): BP systolic 120–146; BP diastolic 51–95; PULSE 55–60; RESP 17–19; TEMP 36.5–36.6; O2SAT 96–100; BMI 29.2
--- OUTSIDE RECORDS SUMMARY | 2024-12-26 07:37 | XMS_ITS | Clinical Summary ---
Author Organization [facility] Address [address] [place] [address] Care Team Providers Care Medical Office Clerk Name Role Phone Manjeet Griffin MD Primary Care Provider + [phone] Allergies Active Allergy Reactions Criticality Noted Date Comments Penicillins Hives Medium 02/21/2023 Medications amLODIPine (NORVASC) 5 MG tablet 02/14/2023 Active glimepiride (AMARYL) 2 MG tablet 02/19/2023 Active hydroCHLOROthiaz bryson (HYDRODIURIL) 25 MG tablet 02/14/2023 Active lisinopril (PRINIVIL,ZESTRI L) 40 MG tablet 02/04/2023 Act yared metFORMIN (GLUCOPHAGE) 1000 MG tablet 02/14/2023 Acti ve pravastatin (PRAVACHOL) 80 MG tablet 02/04/2023 Active metoprolol succinate XL (TOPROL-XL) 25 MG 24 hr tablet TAKE 1 TABLET BY MOUTH EVERY NIGHT 90 tablet 05/20/2024 Active Active Problems Problem Noted Date Diagnosed Date Chronic chest pain with high risk for CAD 2022 Abnormal stress test 04/30/2023 Bradycardia, sinus 02/21/2023 Chronic chest pain with low to moderate risk for CAD 02/21/2023 SOB (shortness of breath) 02/21/2023 WILL (obstructive sleep apnea) 02/21/2023 Immunizations Immunization Administration Dates Next Due 31-influenza Vac Quardvalent Preservativ 018 Fluzone (or Fluarix & Flulaval for VFC) >6mos Fluzone High-Dose 65+YRS 04/06/2021 Family History Medical History Relation Name Comments Hypertension Father 92 Relation Name Status Comments Brother 1 Alive Father 92 Alive Mother 83 Sister 2 Alive Social History Tobacco Use Types Packs/Day Years Used Date Smoking Tobacco: Every Day Cigarettes 1.5 46 Passive Smoke Exposure: Never Smokeless Tobacco: Never Tobacco Cessation:Ready to Q uit: Not Asked; Counseling Given: Not Answered Alcohol Use Standard Drinks/Week Comments Defer 0 (1 standard drink = 0.6 oz pur e alcohol) AUDIT-C Answer Date Recorded Q1: How often do you have a drink containing alcohol? Never 05/30/2023 Q2: How many drinks containi ng alcohol do you have on a typical day when you are drinking? Patient does not drink Q3: How often do you have si x or more drinks on one occasion? Never 05/30/2023 Abuse Screen Answer Date Recorded Feels Unsafe at Home or Work/School no 05/30/2023 Feels Threatened by Someone no 05/03 Does Anyone Try to Keep You From Having Contact with Others or Doing Things Outside Your Home? no 05/30/2023 Physical Signs of Abuse Present no 05/30/2023 Housing Stability Answer Date Recorded Current Living Arrangements home 05/03 Potentially Unsafe Housing Conditions Not on martina e 05/30/2023 Family and Community Support Answer Zheng e Recorded Help with Day-to-Day Activities Not on file 03/11/2023 Lonely or Isolated Not on file 03/11/2023 Employment Answer Date Recorded Do you want help finding or keeping work or a livan b? Not on file 03/11/2023 Disabilities Answer Date Recorded Difficulty Concentrating, Remembering or Making Decisions no 05/30/2023 Difficulty Managing Errands Independently no 05/30/2023 Education Answer Date Recorded Help with school or training? Not on file Preferred Language Not on file 03/11/2023 Sex and Gender Information Value Date Recorded Sex Assigned at Not on file Legal Sex Male 2:21 PM EDT Gender Identity Not on file Sexual Orientation Not on file Last Filed Vital Signs Vital Sign Reading Time Taken Comments Blood Pressure 148/70 05/30/2023 12:45 PM EST Pulse 58 05/30/2023 12:45 PM EST Temperature 36.6 C (97.8 F) 05/30/2023 8:35 AM EST Respiratory Rate 15 05/30/2023 10:59 AM EST Oxygen Saturation 98% 05/30/2023 12:45 PM EST Inhaled Oxygen Concentration - - Weight 92.8 kg (204 lb 9.6 oz) 05/30/2023 8:35 A M EST Height 175.3 cm (5' 9 ) 05/30/2023 8:35 AM EST Body Mass Index 30.21 05/30/2023 8:35 AM EST Plan of Treatment Health Maintenance Due Date Last Done Comments Pneumococcal Vaccine 50+ (1 of 2 - PCV) 09/11/1974 TDAP/TD VACCINES (1 - Tdap) 09/11/1974 COLOGUARD 09/11/2000 COLON CANCER SCREENING 5 YEA R SIGMOIDOSCOPY 09/11/2000 COLONOSCOPY 09/11/2000 COLORECTAL CANCER SCREENING 09/11/2000 CT COLONOGRAPHY 09/11/2000 FECAL OCCULT BLOOD TEST 09/11/2000 FIT Testing (1 year) 09/11/2000 ZOSTER VACCINE (1 of 2) 09/11/2005 AAA SCREEN ONCE 09/11/2020 ANNUAL PHYSICAL 02/21/2023 HEPATITIS C SCREENING 02/21/2023 COVID-19 Vaccine (2023-2 5 season) 2024 03/08/2021, 07/21/2020, 06/22/2020 INFLUENZA VACCINE 03/02/2025 03/01/2023, , 03/12/2019, Additional history exists Insurance [address] [address] EMPLOYEE Care Teams Medical Office Clerk Relationship Specialty Start Date End Date Manjeet Griffin MD [address] [place] [facility] [address] [place] [address] PCP - General Adolescent Medicine 02/21/23
--- OUTSIDE RECORDS SUMMARY | 2024-12-26 07:37 | XMS_ITS | Patient Health Record ---
Author Organization [facility] Address [address] [place] [address] [place] [address] Care Team Providers Care Behavioral Health Worker Name Role Phone Jolanta Aparicio Primary Care Provider [phone] Migration, Provider Unavailable Unavailable Allergies Allergen (clinical drug ingredient) Drug/Non Drug Allergy documented on EMR Reaction Allergy Type Onset Date Status Penicillin Unknown Drug Allergy Active Results Component Value Reference Range Notes Urinalysis Reviewed date:10/13/2024 05:12:39 PM Interpretation: Performing Lab: Notes/Report: Color/Clarity yellow Leuk neg Nitrite neg Urobili 0.2 Protein trace pH 5.5 Blood neg Sp. Gr. 1.015 Ketone neg Bili neg Glucose >=1000mg CT Scan : Chest, Lung Cancer Screening Reviewed date:12/17/2024 12:35:03 PM Interpretation: Performing Lab: Notes/Report: QUANTIFERON(R)-TB GOLD PLUS, 1 TUBE (72195) Reviewed date:05/21/2024 08:22:43 AM Interpretation: Performing Lab:CB, [facility] [address], [facility] Hospital[facility]mbyUD[address] Jonah Espinal Notes/Report: NON-FASTING QUANTIFERON(R)-TB GOLD PLUS, [...] T-lymphocytes. For additional information, please refer to https://education.Uolala.com/faq/OOB923 (This link is being provided for informational/ educational purposes only.) IRON, TIBC AND FERRITIN PANE L (5616) Reviewed date:12/08/2024 08:41:27 AM Interpretation: Performing Lab:[facility] [facility] Jonah Espinal Notes/Report: NON-FASTING; NON-FASTING; NON-FASTING; NON-FASTING; NON-FAST FASTING:YES FASTING: YES IRON, TOTAL 80 50-180 mcg/dL IRON BINDING CAPACITY 292 250-425 mcg/dL (angelito c) % SATURATION 27 20-48 % (calc) FERRITIN 71 24-380 ng/mL LIPID PANEL, STANDARD (7600) Reviewed date:12/08/2024 08:41:27 AM Interpretation: Performing Lab:[facility] [address] [facility] Jonah Espinal Notes/Report: NON-FASTING; NON-FASTING; NON-FASTING; NON-FASTING; NON-FAST FASTING:YES FASTING: YES CHOLESTEROL, TOTAL 141 <200 mg/dL HDL CHOLESTEROL 38 > OR = 40 mg/dL TRIGLYCERIDES 252 <150 mg/dL If a non-fasting specimen was collected, consider repeat triglyceride testing on a fasting specimen if clinically indicated. Herron et al. J. of Clin. Lipidol. 2015;9:129-169. [...] of LDL-C. Adolfo MONTEJO et al. ALEXEY. 2013;310(19): 3605-1468 (http://education.King.com.com/faq/JWQ872) CHOL/HDLC RATIO 3.7 <5.0 (calc) NON HDL CHOLESTEROL 103 <130 mg/dL (calc) For patients with diabetes plus 1 major ASCVD risk factor, treating to a non-HDL-C goal of <100 mg/dL (LDL-C of <70 mg/dL) is considered a therapeutic option. COMPREHENSIVE METABOLIC PANE Riki (14526) Reviewed date:12/08/2024 08:41:28 AM Interpretation: Performing Lab:NEYDA, [facility] [address], [facility]zzGL[address] Jonah Espinal Notes/Report: NON-FASTING; NON-FASTING; NON-FASTING; NON-FASTING; [...] 15 10-35 U/L ALT 14 9-46 U/L CBC (INCLUDES DIFF/PLT) (639 9) Reviewed date:12/08/2024 08:41:28 AM Interpretation: Performing Lab:NEYDA, [facility] [address], [facility] HospitalXeffTY[address] Jonah Espinal Notes/Report: NON-FASTING; NON-FASTING; NON-FASTING; NON-FASTING; [...] MPV 10.3 7.5-12.5 fL ABSOLUTE NEUTROPHILS 5305 3141-6785 cells/uL ABSOLUTE LYMPHOCYTES 3706 285-9069 cells/uL ABSOLUTE MONOCYTES 697 200-950 cells/uL ABSOLUTE EOSINOPHILS 369 15-500 cells/uL ABSOLUTE BASOPHILS 74 0-200 cells/uL NEUTROPHILS 64.7 LYMPHOCYTES 21.4 MONOCYTES 8.5 EOSINOPHILS 4.5 BASOPHILS 0.9 HEMOGLOBIN A1c (496) Reviewed date:12/08/2024 08:41:28 AM Interpretation: Performing Lab:CB, [facility] Bcxy[address] [facility] Jonah Espinal Notes/Report: NON-FASTING; NON-FASTING; NON-FASTING; NON-FASTING; [...] A1c for diagnosis of diabetes for children. PSA, TOTAL (5363) Reviewed date:12/08/2024 08:41:28 AM Interpretation: Performing Lab:NEYDA, [facility] [address] [facility], Roberto GarciaEqozQV[address] Jonah Espinal Notes/Report: NON-FASTING; NON-FASTING; NON-FASTING; NON-FASTING; NON-FAST FASTING:YES FASTING: YES PSA, TOTAL 0.42 < OR = 4.00 ng/mL The total PSA value from this assay system is standardized against the WHO standard. The test result will be approximately 20% lower when compared to the equimolar-standardized total PSA (Kemal Idabel). Comparison of serial PSA results should be interpreted with this fact in mind. This test was performed using the Siemens chemiluminescent method. Values obtained from different assay methods cannot be used interchangeably. PSA levels, regardless of value, should not be interpreted as absolute evidence of the presence or absence of disease. Medications Medication SIG (Take, Route, Frequency, Duration) [...] Immunizations Vaccine Route Administration Date Status [facility] SHINGRIX IM Intramuscular 07/01/2022 Administered SHINGRIX IM Intramuscular 06/04/2023 Administered Prevnar PCV-20 (Pneumococcal conjugate 20) IM Intramuscular 07/01/2022 Administered Influenza-Fluzone 3+years (NON-MEDICARE) IM Intramuscular 04/14/2018 Administered Fluzone High Dose IM Intramuscular 04/06/2021 Administered FLULAVAL IM Intramuscular 03/12/2019 Administered Arexvy IM Intramuscular 06/04/2023 Administered Problems Problem Type SNOMED Code ICD Code Onset Dates Problem Status W/U Status Risk Notes Problem Hyperlipidemia (69446048) Hyperlipidemia, unspecified (E78.5) Active confirmed Problem Tobacco use (752942341) Tobacco use (Z72.0) Active confirmed Problem Essential hypertension (67425937) Essential hypertension (I10) Active confirmed Problem Edema of right lower extremity (711197898) Edema of right lower extremity (R60.0) Active confirmed Problem Pulmonary nodule (619683172) Pulmonary nodule (R91.1) Active confirmed Problem 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 Problem Type II diabetes mellitus without complication (577785838) Diabetes mellitus without complication (E11.9) Active confirmed Problem Allergic rhinitis caused by pollen (02040493) Seasonal allergic rhinitis due to pollen (J30.1) Active confirmed Problem Obstructive sleep apnea syndrome (80731631) WILL on CPAP (G47.33) Active confirmed Problem Varicose veins of both lower limbs (74071772910245877 ) Varicose veins of both lower extremities (I83.93) Active confirmed Problem Personal history of tobacco use (Z87.891) Active confirmed Problem Does use hearing aid (finding) (239678583) Hearing aid worn (Z97.4) Active confirmed Problem Anemia (119555943) Mild anemia (D64.9) Active confirmed Problem Sensorineural hearing loss (46844634) Perceived hearing loss (H90.5) Active confirmed Problem Acute tear of meniscus of right knee (disorder) (33380659413511379 ) Tear of meniscus of right knee [...] 10/13/2024 Encounters Encounter Location Date Provider Diagnosis [facility] [address] [place] [address] 09/04/2024 Provider Migration Diabetes mellitus without complication E11.9 [facility] [place] [address] [address] 10/13/2024 Jolanta Aparicio Essential hypertension I10 ; 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 (commercial 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 Z02.4 ; Hyperlipidemia, unspecified E78.5 ; Diabetes mellitus without complication E11.9 ; WILL on CPAP G47.33 ; Mild anemia D64.9 ; Screening PSA (prostate specific antigen) Z12.5 and Personal history of tobacco use Z87.891 [facility] [place] [address] [address] 05/17/2024 Jolanta Aparicio Screening for tuberculosis Z11.1 [facility] [address] [address] 08/26/2024 Jolanta Alessandra [facility] [address] [place] [address] 10/13/2024 Jolanta Alessandra [facility] [address] [address] 11/25/2024 Jolanta Alessandra [facility] [place] [address] [address] 11/30/2024 Jolantameaghan RicciAlessandra Tear of meniscus of right knee as current injury, unspecified meniscus, unspecified tear type, subsequent encounter S83.206D [facility] [address] [place] [address] 12/02/2024 Jolantameaghan RicciAlessandra Personal history of tobacco use Z87.891 [facility] [place] [address] [address] 12/08/2024 Jolantameaghan Aparicio Assessments Encounter Date Diagnosis (ICD Code) Assessment [...] well and symptoms improved, continue FU with [facility] sleep clinic 10/13/2024 Mild anemia (ICD-10 - [...] C-CBC 12/01/2018 C-CBC 02/08/2014 C-CMP 02/08/2014 C-CMP 01/14/2018 C-CMP 12/01/2018 C-CMP 06/04/2017 C-CMP 06/21/2020 C-CMP 12/22/2019 C-LIPID PANEL 12/22/2019 C-LIPID PANEL 06/04/2017 C-LIPID PANEL 12/01/2018 C-LIPID PANEL 01/14/2018 C-LIPID PANEL 02/08/2014 C-TSH 02/08/2014 C-HGBA1C 02/08/2014 C-HGBA1C 01/14/2018 C-HGBA1C 06/04/2017 C-HGBA1C 12/01/2018 C-HGBA1C 12/22/2019 C-HGBA1C 06/21/2020 Lipid Panel 07/01/2022 M-Complete Blood Count Auto Diff 024 M-Comprehensive Metabolic Panel 06/04/19 24 M-Basic Metabolic Panel 08/02/2020 M-Hemoglobin A1C 06/04/2023 M-Ferritin 06/04/2023 M-Lipid Panel 06/04/2023 M-Vitamin B12 06/04/2023 M-Folate 06/04/2023 M-Iron and TIBC 06/04/2023 M-Microalb/Creat Ratio, Randm Ur 024 M-COVID WITH RESPIRATORY PANEL Comprehensive Metabolic Panel (CMP) 06/04 Hemoglobin A1C 07/01/2022 FERRITIN (457) 10/13/2024 Next Appt Details Provider Name:Jolanta Lyn Neeta cervantes, 12/29/2024 09:30:00 AM, [address], [address], Provider Name:Jolanta Lyn Neeta cervantes, 01/12/2025 09:15:00 AM, [address] [place] [address], [id number], Insurance Providers Payer Name Payer Address Payer Phone Subscriber Number Group Number Insured Name Patient Relationship to Insured Coverage Start Date Coverage End Date [facility] [address] [place] [address] [id number] Forrest Renner Self - patient is the insured Medical (General) History Medical History History ICD Code DM HTN HLD Tobacco use.. normal LDCT 12/23 C-scope 11/2018 with isolated hyperplasti c polyp COVID 19 late April 2020 wears hearing aids WILL on CPAP Negative LHC 05/2023 at [facility] Normal AAA screen 12/23 Surgical History Surgery Date(Month/Year) colonoscopy - reportedly normal at age 5 2 Left Heart Cath, normal 05/2023 Hospitalization History Reason Date(Month/Year) chest pain 2008
--- NOTE | 2024-12-26 07:38 | CT_ITS ---
PROCEDURE INFORMATION: Exam: CTA Head With Contrast, Arteriography Exam date and time: 12/26/2024 8:02 AM Age: 69 years old Clinical indication: Visual disturbance and other: Neck pain, L visual field defecits TECHNIQUE: Imaging protocol: Computed tomographic angiography of the head with contrast. Exam focused on the arteries. 3D rendering (Not supervised by radiologist): MIP and/or 3D reconstructed images were created by the technologist. Radiation optimization: All CT scans at this facility use at least one of these dose optimization techniques: automated exposure control; mA and/or kV adjustment per patient size (includes targeted exams where dose is matched to clinical indication); or iterative reconstruction. Contrast material: ISOVUE; Contrast volume: 80 ml; Contrast route: INTRAVENOUS (IV); COMPARISON: CT HEAD/BRAIN WO CON 12/26/2024 8:00 AM FINDINGS: ANTERIOR CIRCULATION: Right internal carotid artery: Intracranial segment is patent with no significant stenosis. No aneurysm. Right middle cerebral artery: No occlusion or significant stenosis. No aneurysm. Right anterior cerebral artery: No occlusion or significant stenosis. No aneurysm. Left internal carotid artery: Intracranial segment is patent with no significant stenosis. No aneurysm. Left middle cerebral artery: No occlusion or significant stenosis. No aneurysm. Left anterior cerebral artery: No occlusion or significant stenosis. No aneurysm. POSTERIOR CIRCULATION: Right vertebral artery: No occlusion or significant stenosis. No aneurysm. Left vertebral artery: No occlusion or significant stenosis. No aneurysm. Basilar artery: No occlusion or significant stenosis. No aneurysm. Right posterior cerebral artery: No occlusion or significant stenosis. No aneurysm. Left posterior cerebral artery: No occlusion or significant stenosis. No aneurysm. Brain: No acute abnormality. No edema, mass effect or midline shift. No hemorrhage. Cerebral ventricles: No acute findings. No hydrocephalus. Bones/joints: No acute osseous abnormality. No acute fracture. Soft tissues: No significant soft tissue abnormalities. IMPRESSION: No evidence of significant intracranial vascular disease or acute large vessel occlusion at this time.
--- NOTE | 2024-12-26 07:38 | CT_ITS ---
PROCEDURE INFORMATION: Exam: CTA Neck With Contrast Exam date and time: 12/26/2024 8:02 AM Age: 69 years old Clinical indication: Pain; Visual disturbance; Other: Neck; Additional info: Neck pain, L visual field defecits TECHNIQUE: Imaging protocol: Computed tomographic angiography of the neck with contrast. Exam focused on the cervical segments of the vasculature. 3D rendering (Not supervised by radiologist): MIP and/or 3D reconstructed images were created by the technologist. Radiation optimization: All CT scans at this facility use at least one of these dose optimization techniques: automated exposure control; mA and/or kV adjustment per patient size (includes targeted exams where dose is matched to clinical indication); or iterative reconstruction. Contrast material: ISOVUE; Contrast volume: 80 ml; Contrast route: INTRAVENOUS (IV); COMPARISON: CT HEAD/BRAIN WO CON 12/26/2024 8:00 AM FINDINGS: Right common carotid artery: Patent enhancing right common carotid artery. No significant stenosis. No dissection or occlusion. Right internal carotid artery: Mild mixed atheromatous and calcific plaque along the right carotid bifurcation and carotid bulb with mild approximately 20% proximal right ICA stenosis with respect to the distal ICA lumen. No dissection or occlusion. Right external carotid artery: Patent enhancing right external carotid artery. No occlusion or significant stenosis. Left common carotid artery: Patent enhancing left common carotid artery. No significant stenosis. No dissection or occlusion. Left internal carotid artery: No acute abnormality. Mild calcific plaque along the left carotid bifurcation and carotid bulb. Extracranial segment is patent without stenosis with respect to the distal ICA lumen. No dissection or occlusion. Left external carotid artery: Patent enhancing left external carotid artery. No occlusion or significant stenosis. Right vertebral artery: Patent enhancing right vertebral artery. No significant stenosis. No dissection or occlusion. Left vertebral artery: Patent enhancing dominant left vertebral artery without significant stenosis. No dissection or occlusion. Soft tissues: No significant soft tissue abnormalities. Bones/joints: Cervical spondylosis and degenerative bony changes. IMPRESSION: Mild mixed atheromatous and calcific plaque along the right carotid bifurcation and carotid bulb with mild approximately 20% proximal right ICA stenosis with respect to the distal ICA lumen. REFERENCES: NASCET CRITERIA. The degree of stenosis in the cervical segment of the internal carotid artery is based on NASCET criteria. Normal is no stenosis. Mild is less than 50% stenosis. Moderate is 50-69% stenosis. Severe is 70% to 99% stenosis. Total occlusion is no detectable patent lumen.
--- NOTE | 2024-12-26 07:38 | CT_ITS ---
PROCEDURE INFORMATION: Exam: CT Head Without Contrast Exam date and time: 12/26/2024 8:00 AM Age: 69 years old Clinical indication: Other: Neck/l chest pain, L visual field defecits; Additional info: Neck pain, L visual field defecits TECHNIQUE: Imaging protocol: Computed tomography of the head without contrast. Radiation optimization: All CT scans at this facility use at least one of these dose optimization techniques: automated exposure control; mA and/or kV adjustment per patient size (includes targeted exams where dose is matched to clinical indication); or iterative reconstruction. COMPARISON: No relevant prior studies available. FINDINGS: Limitations: Mild motion artifact. Brain: Prominence of the sulci consistent with diffuse atrophy. No mass effect or midline shift. Mild periventricular and subcortical white matter low-attenuation consistent with chronic small vessel ischemic changes. No evidence of acute intracranial hemorrhage. Cerebral ventricles: Ventricular prominence proportional to sulci. No hydrocephalus. Paranasal sinuses: Inferior right maxillary sinus mucous retention cyst. Mastoid air cells: No acute abnormality. No significant mastoid effusion. Bones: No acute osseous abnormality. No acute fracture. Soft tissues: No significant soft tissue abnormalities. IMPRESSION: Diffuse atrophy and mild chronic/remote ischemic changes without evidence of superimposed acute infarct, hemorrhage or mass-effect at this time.
--- NOTE | 2024-12-26 07:38 | CT_ITS ---
PROCEDURE INFORMATION: Exam: CTA Chest With Contrast Exam date and time: 12/26/2024 8:06 AM Age: 69 years old Clinical indication: Other: Neck/l chest pain pain, L visual field defecits TECHNIQUE: Imaging protocol: Computed tomographic angiography of the chest with contrast. Exam focused on the arteries. 3D rendering (Not supervised by radiologist): MIP and/or 3D reconstructed images were created by the technologist. Radiation optimization: All CT scans at this facility use at least one of these dose optimization techniques: automated exposure control; mA and/or kV adjustment per patient size (includes targeted exams where dose is matched to clinical indication); or iterative reconstruction. Contrast material: ISOVUE; Contrast volume: 80 ml; Contrast route: INTRAVENOUS (IV); COMPARISON: CT LUNG SCREENING 12/16/2024 8:43 AM FINDINGS: Pulmonary arteries: No evidence of pulmonary embolus to the segmental level. Aorta: No aneurysm of the aorta. No dissection of the aorta. Lungs: Mild paraseptal emphysematous changes Pleural spaces: Unremarkable. No pneumothorax. No pleural effusion. Heart: There is calcification of the aortic valve annulus. There is calcification of the mitral valve annulus. Coronary arteries: Coronary artery calcifications may indicate coronary artery disease. Lymph nodes: Unremarkable. No enlarged lymph nodes. Liver: Lobulated liver consistent with cirrhosis Pancreas: Pancreatic atrophy Adrenal glands: Complex left adrenal nodule 4.3 x 3.6 cm. It measured 6.7 Hounsfield units on noncontrast images consistent with adrenal adenoma. . No follow-up imaging recommended .. Kidneys: 4.2 cm simple cyst right kidney . No follow-up imaging recommended . Bones/joints: Unremarkable. No acute fracture. Soft tissues: Unremarkable. IMPRESSION: 1. No evidence of pulmonary embolus to the segmental level. 2. No aneurysm of the aorta. 3. No dissection of the aorta. 4. Complex left adrenal nodule 4.3 x 3.6 cm. It measured 6.7 Hounsfield units on noncontrast images consistent with adrenal adenoma. . No follow-up imaging recommended .. COMMENTS: 1. Consistent with the [employer]'s Incidental Findings Committee white paper (J Am Tonya Radiol 2017): Any incidental adrenal lesion less than 1 cm is likely benign. No follow-up imaging is recommended for these lesions per consensus recommendations based on imaging criteria. Further lab evaluation could be pursued if warranted based on clinical findings. 2. Consistent with the [employer]'s Incidental Findings Committee white paper (J Am Tonya Radiol 2018): Any incidental renal lesion less than 1 cm or classified as too small to characterize, or any incidental cystic renal lesion characterized as simple-appearing, is likely benign. No follow-up imaging is recommended for these lesions per consensus recommendations based on imaging criteria. 3. The presence of pulmonary emphysema on CT is an independent risk factor for lung cancer. In the absence of a history or active diagnosis of lung cancer, it is recommended that this patient with emphysema be evaluated for enrollment in a low dose CT lung cancer screening program.
--- NOTE | 2024-12-26 07:40 | HMH.EDGENADL ---
Discharge Plan Disposition Patient Disposition: Xfer Short-Term Hosp Prescriptions Prescriptions: No Action aspirin [Adult Aspirin Regimen] 81 mg tablet,delayed release (DR/EC) 81 mg PO DAILY sitagliptin phosphate 100 mg tablet 100 mg PO DAILY lisinopril 20 mg tablet 20 mg PO BID Patient Comments: TAKE 1 TABLET BY MOUTH ONCE A DAY amlodipine 5 mg tablet 5 mg PO DAILY hydrochlorothiazide 25 mg tablet 25 mg PO DAILY glimepiride 2 mg tablet 2 mg PO DAILY metoprolol succinate 25 mg tablet extended release 24 hr 25 mg PO DAILY celecoxib 200 mg capsule 200 mg PO DAILY Jardiance 25 mg tablet 25 mg PO DAILY pravastatin 80 MG tablet 80 mg PO DAILY metformin 1,000 MG tablet 1,000 mg PO BID Referrals Follow up/Referrals: Manjeet Griffin MD [Primary Care Provider, Internal Medicine] - See instructions Activity Restrictions/Add. Instructions Additional Instructions/Restrictions: Please present immediately to [facility] in [place] to be admitted to their neurologic unit. They are expecting you. We incidentally found an adrenal adenoma that is usually a benign overgrowth of tissue on one of your adrenal glands. Just make sure your family doctor follows this over time. Clinical Impressions Clinical Impression: Transient visual obscuration, Chest pain, Adrenal adenoma Instructions Patient Instructions: DI for Neck Pain Print Language Print Language: Cook Islander Discharge ED Provider: Marcello Jennings General Adult HPI General Chief complaint: Neck Pain/Injury Stated complaint: Pain in Back of Neck down through L arm and Side Time Seen by Provider: 12/26/24 07:26 Mode of Arrival: Ambulatory Source of Information: Patient and Spouse Description of Symptoms (Recalled from ER Triage Doc. by RN): Patient presents to ED from home with c/o neck pain radiating down into the right shoulder x2 weeks. Also reports noting blocks or floaters in his vision yesterday while driving, reports hx of similar episodes. notes recent changes in medication and decrease in his BP medication. States recent labs showed kidney failure and dehydration, reports he has been trying to hydrate better. Patient denies chest pain, denies SOA. History of Present Illness HPI narrative: Patient is a 69-year-old male who presents emergency department for evaluation of neck pain and transient visual deficits. Patient's neck pain has been going on for 1 to 2 weeks but was acutely worse yesterday, bilateral radiating in the shoulders. There is intermittent left-sided chest pain. He was driving when he noticed intermittent visual field cuts to his left visual patino. No difficulty of speech, no motor difficulties reported. No trauma. He has a past medical history of hypertension which recently had blood pressure medication modification, obstructive sleep apnea, [id number] diabetes. Chest pain is stuttering, infrequent over the last 24 hours, does not radiate through to the back, is mild in intensity. No infectious symptoms such as cough or rhinorrhea. He does have intermittent chronic cramps in his calf which he attributes to dehydration which are improving given increased p.o. intake as of late. Please note that above description of symptoms, in this electronic medical record under categorization of recalled from ER triage doctor by RN are reflective of an initial nursing assessment, however, is not reflective of my full history and physical exam that was personally taken and clarified. Consequentially, this preceding description of symptoms, which may include the patient's categorized chief complaint in the EMR, do not reflect my personal clinical impression, and the ultimate description of history of present illness and patient stated complaints should be deferred to this section of the note. Unless stated otherwise or congruent with this section of the note, additional signs, symptoms, or incongruence should be interpreted as inaccurate with my clinical impression. Related Data Home Medications ?Medication ?Instructions ?Recorded ?Confirmed metformin 1,000 mg tablet 1,000 mg PO BID sugar 12/29/18 05/20/24 pravastatin 80 mg tablet 80 mg PO DAILY cholestrol 12/29/18 05/20/24 aspirin 81 mg tablet,delayed 81 mg PO DAILY 01/21/20 05/20/24 release (Adult Aspirin Regimen) amlodipine 5 mg tablet 5 mg PO DAILY 01/02/23 05/20/24 glimepiride 2 mg tablet 2 mg PO DAILY 01/02/23 05/20/24 hydrochlorothiazide 25 mg tablet 25 mg PO DAILY 01/02/23 05/20/24 sitagliptin phosphate 100 mg tablet 100 mg PO DAILY 01/02/23 05/20/24 metoprolol succinate 25 mg 25 mg PO DAILY 04/17/23 05/20/24 tablet,extended release 24 hr celecoxib 200 mg capsule 200 mg PO DAILY 05/20/24 05/20/24 empagliflozin 25 mg tablet 25 mg PO DAILY 05/20/24 05/20/24 (Jardiance) lisinopril 20 mg tablet 20 mg PO BID 05/20/24 05/20/24 Allergies Allergy/AdvReac Type Severity Reaction Status Date / Time Penicillins Allergy Verified 05/19/24 20:16 [facility] Disclaimer: The information contained in this section may have been updated after the patient was seen, as this information can be updated by other users. Medical History (Updated 12/26/24 @ 09:28 by Marcello Jennings MD) History of left heart catheterization Hypertension Diabetes WILL (obstructive sleep apnea) Surgical History (Updated 05/20/24 @ 09:18 by Orly Espinal) No history of previous surgery Family History Other Alcoholism Cancer Coronary artery disease Hypertension Social History Smoking Status: Current every day smoker alcohol intake: never substance use type: denies use current occupational status: employed Travel in the last 8 weeks?: None caffeine: Yes Have you lived/traveled outside [place] in past 30 days?: No Contact w/someone who lives/traveled outside US past 30 days?: No Exposure to someone with infectious disease in past 14 days?: No Do you have a fever (greater than 100.4 F or 38 C)?: No Have you tested positive for COVID-19?: No Exposed to someone with COVID-19 in past 14 days?: No Do you have a sore throat?: No Do you have a cough?: No Do you have any weakness?: No Do you have any diarrhea?: No Are you experiencing any unusual bleeding?: No Do you have any muscle aches/pain?: No Do you have any abdominal pain?: No Are you experiencing loss of taste or smell?: No Other Medical History Have you received the Flu Vaccine for this season: Yes Have you received the Pneumonia Vaccine: Yes ROS Obtained: Yes Systems reviewed as appropriate & no additional complaints except as documented Physical Exam General General appearance: alert and in no apparent distress Head Head exam: atraumatic and normocephalic Eye Eye exam: Present PERRL and EOMI ENT ENT exam: Present mucous membranes moist Neck Neck exam: Present normal inspection Chest Chest inspection: Present normal inspection and symmetric chest wall rise Respiratory Respiratory exam: Present normal lung sounds bilaterally; Absent respiratory distress Cardiovascular Cardiovascular exam: Present regular rate and normal rhythm Abdominal Exam Abdominal exam: Present soft; Absent tenderness Extremities Exam Extremities exam: Present normal inspection Neurological Exam Neurological exam: Present alert, CN II-XII intact and other (5 out of 5 strength bilateral upper and lower extremities, visual patino intact.); Absent motor sensory deficit Psychiatric Psychiatric exam: Present normal affect Skin Skin exam: Present warm and dry Medical Decision Making Medical Records Screening: Per USPSTF and CDC recommendations, given the prevalence of disease in our region, it is our hospital?s policy to screen for HIV and viral Hepatitis for all patients aged 18 and over and those with ongoing risk factors. Frantz Inquiry Pt receiving controlled substance: No Vital Signs: 12/26/24 07:30 12/26/24 07:32 12/26/24 08:19 Temperature 97.9 F Temperature Source Oral Pulse Rate 58 L 60 Pulse Rate [Left] 58 L Respiratory Rate 19 19 Blood Pressure 146/95 H 142/58 H Blood Pressure [Right Arm] 146/95 H Blood Pressure Mean 101 Blood Pressure Mean [Right Arm] 112 Blood Pressure Source [Right Arm] Automatic Cuff Blood Pressure Position [Right Arm] Sitting 02 Sat by Pulse Oximetry 96 99 100 Oxygen Delivery Method Room Air Room Air Room Air 12/26/24 08:30 12/26/24 09:00 Temperature Temperature Source Pulse Rate 55 L 57 L Pulse Rate [Left] Respiratory Rate 17 Blood Pressure 120/58 L 139/71 Blood Pressure [Right Arm] Blood Pressure Mean 91 Blood Pressure Mean [Right Arm] Blood Pressure Source [Right Arm] Blood Pressure Position [Right Arm] 02 Sat by Pulse Oximetry 97 100 Oxygen Delivery Method Room Air Room Air Lab Data Lab Results 12/26/24 07:44: WBC 7.5, RBC 3.70 L, Hgb 12.4 L, Hct 36.1 L, MCV 97.6 H, MCH 33.5 H, MCHC 34.3, RDW 11.7, Plt Count 167, MPV 10.3, Neut % (Auto) 66.7, Lymph % (Auto) 19.4, Dubois % (Auto) 8.4, Eos % (Auto) 4.2, Baso % (Auto) 0.8, Neut # (Auto) 5.0, Lymph # (Auto) 1.5, Dubois # (Auto) 0.6, Eos # (Auto) 0.3, Baso # (Auto) 0.1, Sodium 135 L, Potassium 5.1, Chloride 103, Carbon Dioxide 25, Anion Gap 12.1, BUN 30 H, Creatinine 1.80 H, Estimated Creat Clear 49, Estimated GFR 38 L, Est GFR ( Amer) 45 L, Glucose 204 H, Calcium 9.3, Total Bilirubin 0.2, AST 28, ALT 20, Alkaline Phosphatase 91, Troponin I < 0.01, Total Protein 7.2, Albumin 4.5, Globulin 2.7, Albumin/Globulin Ratio 1.7, HCV Ab HENRY w/Rflx PCR Qn Negative, HIV Ag/Ab Combo Qual Negative 12/26/24 07:44 12/26/24 07:44 Orders (Tests/Meds): ED MEDICATIONS Generic Name Dose Route Start Last Admin Trade Name Freq PRN Reason Stop Dose Admin Lactated Ringer's 1,000 mls @ 999 mls/hr 12/26/24 08:44 12/26/24 08:52 Lactated Ringer's 1000 Ml Bag IV 12/26/24 09:44 999 mls/hr .Q1H1M ONE Administration Discontinued Medications Generic Name Dose Route Start Last Admin Trade Name Freq PRN Reason Stop Dose Admin Acetaminophen 1,000 mg 12/26/24 07:38 12/26/24 08:11 Acetaminophen 500mg Tab PO 12/26/24 07:39 1,000 mg ONCE ONE Administration Aspirin 324 mg 12/26/24 09:20 12/26/24 09:23 Aspirin 81mg Chewable Tablet PO 12/26/24 09:21 324 mg ONCE ONE Administration Iopamidol 160 ml 12/26/24 08:20 12/26/24 08:21 Iopamidol-370 (76%);100ml Bottle IV 12/26/24 08:21 160 ml ONCE ONE Administration Sodium Chloride 10 ml 12/26/24 08:20 12/26/24 08:21 Sodium Chloride 0.9% 10ml Syr (Rad Only) IV 12/26/24 08:21 10 ml ONCE ONE Administration Sodium Chloride 100 ml 12/26/24 08:20 12/26/24 08:21 0.9 % Sodium Chloride 50 Ml Vial IV 12/26/24 08:21 100 ml ONCE ONE Administration ORDERS Category Date Time Status CT angio chest - dissection Stat Cat Scan 12/26/24 07:[address] angio head Stat Cat Scan 12/26/24 07:[address] angio neck Stat Cat Scan 12/26/24 07:[address] head/brain wo con Stat Cat Scan 12/26/24 07:38 Completed CBC w/Auto Diff [Complete Blood Count Auto Diff] Stat Lab 12/26/24 07:44 Completed CMP [Comprehensive Metabolic Panel] Stat Lab 12/26/24 07:44 Completed HIV Combo Stat Lab 12/26/24 07:44 Completed Hepatitis C Ab Qual. W/ RFX Stat Lab 12/26/24 07:44 Completed Trop I [Troponin I] Stat Lab 12/26/24 07:44 Completed EKG Request [ECG Request] Stat Y 12/26/24 07:49 Ordered ECG Data Tracing #1: Independently interpreted by me rate is 56, rhythm is regular, axis is normal, no ST elevation in anatomical contiguous leads, QTc 405 Medical Decision Narrative: In summary patient is 69-year-old male with past medical history described above presents emergency department for evaluation of intermittent neck pain, chest pain, transient left-sided visual obscurations. Patient is hemodynamically stable and nontoxic-appearing upon arrival, afebrile. Visual obscurations occurred at approximately 130 yesterday which we will use as last known normal. Nonfocal neurologic exam currently. Differential includes dissection, CVA, atypical ACS, among others. Patient is outside the window for thrombolytics. Workup we conducted with emergent CT scans of the head, neck, chest. Hematologic labs will be obtained. Formal NIH and visual acuity will be obtained. Initial inventions include Tylenol. Initial hematologic labs reviewed by me, no significant leukocytosis no transfusable anemia no critical electrolyte abnormality, mild hyperglycemia without elevated anion gap. Elevated creatinine without a recent baseline which will be treated with crystalloid bolus. Noncontrasted CT scan of the head informally interpreted by me, no acute large intracranial hemorrhage or mass effect. Formal read diffuse atrophy with remote ischemic changes without evidence of acute pathology. CTA head no acute large vessel occlusion. NIH is 0 at this time. Visual acuity 20/25 OD, 20/30 OS, 20/25 OU. Neck CTA mild mixed atheromatous and calcific plaque along the right carotid bifurcation with only 20% proximal ICA stenosis. Chest CTA complex adrenal nodule consistent with adrenal adenoma no follow-up imaging recommended. Given no acute hemorrhage I will give full dose aspirin at this time with mild chest pain and TIA symptoms. I discussed case with [facility] stroke janitor caretaker who graciously accepted patient for continued evaluation at this time under the care of Dr. Steele. Given that patient's chest pain has been going on well over 6 hours I would imagine if he had ACS his troponin to be elevated by now. Given that he does not have any critical stenosis and does not have any history of severe neurologic deficit that would cause me to become concerned that he could not be transported in a private vehicle I think this is appropriate after shared decision-making discussion family is comfortable. Given this patient will go POV to [facility] for continued evaluation at this time. Retail Assistant disclaimer Much of this encounter note is an electronic manager money spoken language to printed text. Electronic manager money of the spoken language may permit errors. Although I have reviewed the note, some errors may still exist. Critical Care Critical Care Time Critical Care Time: No
--- NOTE | 2024-12-26 07:51 | ECG_ITS ---
APPROVED REPORT Exam: Resting ECG HR:56 bpm ECG Measurements Heart Rate 56 AXES AR 192 P -1 QRSd 118 QRS 52 QT 412 T 58 QTc 405 Conclusion SINUS BRADYCARDIA MODERATE INTRAVENTRICULAR CONDUCTION DELAY [110+ ms QRS DURATION] BORDERLINE ECG Nonspecific ST changes in the precordial leads Electronically signed by : HERBERT CASTILLO, 12/27/2024 18:01:27
--- NOTE | 2024-12-26 07:57 | PC.NURSE ---
patient gone to CT
[2024-12-26 08:04] LABS: Hematocrit 36.1 % (42.0-52.0); Hemoglobin 12.4 g/dL (14.1-18.0); Immature Granulocytes % 0.5 %; Mean Corpuscular HGB Conc 34.3 g/dL (31.8-35.4); Mean Corpuscular Hemoglobin 33.5 pg (27.0-31.2); Mean Corpuscular Volume 97.6 fl (80-94); Nucleated Red Blood Cells % 0 %; Platelet Count 167 K/mm3 (142-424); Red Blood Count 3.70 M/mm3 (4.60-6.20); Red Cell Distribution Width-SD 41.7 fL; White Blood Count 7.5 K/mm3 (4.8-10.8)
[2024-12-26] MEDS: ACETAMINOPHEN 500MG TAB 1000 MG PO (08:11)
[2024-12-26] MEDS: SODIUM CHLORIDE 0.9% 10ML SYR (RAD ONLY) 10 ML IV (08:21)
[2024-12-26] MEDS: 0.9 % SODIUM CHLORIDE 50 ML VIAL 100 ML IV (08:21)
[2024-12-26] MEDS: IOPAMIDOL-370 (76%);100ML BOTTLE 160 ML IV (08:21)
[2024-12-26 08:23] LABS: Alanine Aminotransferase 20 U/L (12-78); Albumin Level 4.5 g/dl (3.5-5.0); Albumin/Globulin Ratio 1.7 (1.1-1.8); Alkaline Phosphatase 91 U/L (38-126); Anion Gap 12.1 mEq/L (5-15); Aspartate Amino Transferase 28 U/L (17-59); Bilirubin,Total 0.2 mg/dl (0.2-1.3); Blood Urea Nitrogen 30 mg/dl (9-20); Calcium 9.3 mg/dl (8.4-10.2); Carbon Dioxide 25 mmol/L (22.0-30.0); Chloride 103 mmol/L (98-107); Creatinine Clearance Estimated 49 mL/min (50-200); Creatinine,Serum 1.80 mg/dl (0.66-1.25); Estimated Glomerular Filt Rate 38 ml/min (>60); GFR (African American) 45 ML/MIN (>60); Globulin 2.7 g/dL (1.3-3.2); Glucose 204 mg/dl (74-100); Potassium 5.1 mmoL/L (3.5-5.1); Sodium 135 mmol/L (136-145); Total Protein,Serum 7.2 g/dl (6.3-8.2)
[2024-12-26 08:37] LABS: Troponin I < 0.01 ng/ml (0.00-0.034)
[2024-12-26] MEDS: LACTATED RINGERS 1000ML 1,000 ML 999 ML IV (08:52)
[2024-12-26 09:17] LABS: Hepatitis C Ab Qual. W/ RFX NEGATIVE (Negative)
--- NOTE | 2024-12-26 09:22 | PC.NURSE ---
called [facility] per Dr Jennings for transfer for TIA. Dr Jennings is currently on phone with [facility]
[2024-12-26] MEDS: ASPIRIN 81MG CHEWABLE TABLET 324 MG PO (09:23)
--- NOTE | 2024-12-26 09:26 | PC.NURSE ---
Jacques faxed face sheet to [facility] at this time
--- NOTE | 2024-12-26 09:59 | PC.NURSE ---
Patient report called to [facility] at [address] Room [address]. Patient accepted per Dr. Steele.
--- NOTE | 2024-12-26 10:23 | PC.NURSE ---
Patient leaving now to go POV to [facility], states he and his are headed straight there. [facility] Registration notified now. Patient transfer paperwork and radiology disc sent via patient and . Patient is alert and oriented, ambulatory upon departure, VSS.
== END 2024-12-26 10:27 | disposition short-term general hospital (02) ==
PROVIDERS: Emergency Provider Emergency Medicine; PCP Internal Medicine Adolescent Medicine
DX: R07.9 Chest pain, unspecified (principal); H53.8 Other visual disturbances; D35.02 Benign neoplasm of left adrenal gland; F17.210 Nicotine dependence, cigarettes, uncomplicated; I10 Essential (primary) hypertension; Z86.79 Personal history of other diseases of the circulatory system
CPT/HCPCS: 70450; 70496; 70498; 71275; 80053; 84484; 85025; 86803; 87389; 93005; 96360; 99285; J7120; Q9967

== ENCOUNTER 2025-02-15 08:40 | Outpatient (CLI) | payer BC, SELFPAY ==
--- OUTSIDE RECORDS SUMMARY | 2024-12-26 12:05 | XMS_ITS | Encounter Summary ---
Author Organization [facility] Address [address] [place] [address] Care Team Providers Care [employer] Registrar Name Role Phone Manjeet Griffin MD Primary Care Provider [phone] Reason for Referral * Consultation (Routine) - Pending Review Specialty Diagnoses / Procedures Referred By Contac t Referred To Contact Cardiology Diagnoses PFO (patent foramen ovale) Procedures [place] OFFICE/OUTPATIENT NEW MODERATE MDM 45 MINUTES Melly Mallory PA-C [address] [facility] [address] [place] [address] Phone: tel: fax: [facility] [address] [facility] [address] [place] [address] Phone: tel: fax: Referral ID Status Reason Start Date Expiration Date Visits Requested Visits Authorized [id number] Pending Review Specialty Services Required 12/28/2024 03/29/2026 1 1 * Physical Therapy (Routine) - Closed Specialty Diagnoses / Procedures Referred By Contac t Referred To Contact Physical Therapy Diagnoses Cervical spondylosis with radiculopathy Procedures [place] OFFICE/OUTPATIENT NEW MODERATE MDM 45 MINUTES Tawnya Felipe PA-C [address] [facility] [address] [place] [address] Phone: tel: fax: - OUTPT PHYSICAL THERAPY [address] [place] [address] [place] [address] Phone: tel: fax: Referral ID Status Reason Start Date Expiration Date Visits Requested Visits Authorized [id number] Closed Patient Preference 12/28/2024 03/29/2026 1 1 Reason for Visit * Auth/Cert Specialty Diagnoses / Procedures Referred By Jose t Referred To Contact Diagnoses Transient Ischemic Attack (TIA) Referral ID Status Reason Start Date Expiration Date Visits Re quested Visits Authorized 1 1 Encounter Details Date Type Department Care Team (Late st Contact Info) Description 12/26/2024 12:05 PM EDT - 12/28/2024 4:48 PM EDT Hospital Encounter [address] [place] [id number] Isaac Steele MD [address] [facility] [address] [place] [address] Lynn Valle DO [address] [place] [address] Marium Dos Santos MD [address] [place] [id number] Kristy Pelayo MD [address] [facility] [address] [place] [address] Melly Mallory PA-C [address] [facility] [address] [place] [id number] Cervical spondylosis with radiculopathy (Primary Dx); PFO (patent foramen ovale) Discharge Disposition: Home or Self Care Social History Tobacco Use Types Packs/Day Years [...] you have a drink containing alcohol? Never 12/26/2024 Q2: How many drinks containi ng alcohol do you have on a typical day when you are drinking? Patient does not drink Q3: How often do you have si x or more drinks on one occasion? Never 12/26/2024 Exercise Vital Sign Answer Date Recorde d On average, how many days pe r week do you engage in moderate to strenuous exercise (like a brisk walk)? 3 days 12/27/2024 On average, how many minutes do you engage in exercise at this level? 30 min 12/27/2024 Abuse Screen Answer Date Recorded Feels Unsafe at Home or Work/School no 12/26/2024 Feels Threatened by Someone no 12/01 Does Anyone Try to Keep You From Having Contact with Others or Doing Things Outside Your Home? no 12/26/2024 Physical Signs of Abuse Present no 12/26/2024 Housing Stability Answer Date Recorded Current Living Arrangements home 12/01 Potentially Unsafe Housing Conditions Not on martina e 12/27/2024 Family and Community Support Answer Zheng e Recorded If for any reason you need h elp with day-to-day activities such as bathing, preparing meals, shopping, managing finances, etc., do you get the help you need? I get all the help I need 12/27/2024 Lonely or Isolated Not on file 12/27/2024 Disabilities Answer Date Recorded Difficulty Concentrating, Remembering or Making Decisions no 12/26/2024 Difficulty Managing Errands Independently no 12/26/2024 Education Answer Date Recorded Help with school or training? Not on file Preferred Language [place] 12/27/2024 Sex and Gender Information Value Date Recorded Sex Assigned at Not on file Legal Sex Male 2:21 PM EDT Gender Identity Not on file Sexual Orientation Not on file documented as of this encounter Last Filed Vital Signs Vital Sign Reading Time Taken Comments Blood Pressure 144/67 12/28/2024 3:10 PM EDT Pulse 67 12/28/2024 3:10 PM EDT Temperature 36.6 C (97.9 F) 12/28/2024 3:10 PM EDT Respiratory Rate 18 12/28/2024 3:10 PM EDT Oxygen Saturation 96% 12/28/2024 3:10 PM EDT Inhaled Oxygen Concentration - - Weight 92.8 kg (204 lb 9.4 oz) 12/26/2024 3:56 P M EDT Height 175.3 cm (5' 9.02 ) 12/26/2024 3:56 PM ED T Body Mass Index 30.2 12/26/2024 3:56 PM EDT documented in this encounter Functional Status * Question Answer Date of Assessment Author 1. Wish to be (Past 1 Month) No 025 1:00 PM EDT Sylvia Chapman RN 2. Non-Specific Active Suici sandro Thoughts (Past 1 Month) No 12/26/2024 1:00 PM EDT Karlee Chapman RN * Calculated C-SSRS Risk Score (Lifetime/Recent) Answer Date of Assessment Author No Risk Indicated 12/26/2024 1:00 PM EDT Sylvia Chapman RN * [place] Suicide Severity Rating Scale (Screener/Recent Self-Report) Question Answer Date of Assessment Author 6. Suicidal Behavior (Lifetime) No 1:00 PM EDT Sylvia Chapman RN documented as of this encounter Discharge Summaries * Melly Mallory PA-C - 12/28/2024 2:42 PM EDT Images from the original note were not included. [facility] DISCHARGE SUMMARY Patient Name: Forrest Renner : 1955 Date of Admission: 12/26/2024 12:05 PM Date of Discharge: 12/28/2024 Primary Care Physician: Manjeet Griffin MD Consults Date and Time Order Name Status Description 12/27/2024 6:37 PM Inpatient Neurosurgery Consult Completed Hospital Course Active Hospital Problems Diagnosis POA Vision changes [H53.9] Yes Bradycardia, sinus [R00.1] Yes WILL (obstructive sleep apnea) [G47.33] Yes Resolved Hospital Problems No resolved problems to display. Hospital Course: Forrest Renner is a 69 y.o. male with PMH significant for HTN, HLD, non- insulin dependent DMII, WILL and tobacco abuse. He was transferred to [facility] from [facility] ED for evaluation of transient vision changes and neck pain. He reported black floaters in his L peripheral visual patino ofhis eyes bilaterally. On the morning of 12/26, he woke with worsening neck pain.While taking a shower, he felt a cloud come over his vision, which lasted for several minutes. CT head at OSH was negative. CTA head/neck negative for LVO, showed mild atherosclerotic disease. [facility]. He was admitted to the hospital medicine service. Stroke neurology team consulted Bilateral shoulder/neck pain Vision changes, bilateral PFO - CT head and CTA head/neck with no worrisome findings - MRI brain here negative for CVA - TTE with positive bubble study - neurology deferred TCD and recommended OP follow up with cardiology - Loaded with Plavix, then placed on DAPT and high-intensity statin - PT/OT/MINGLE OPERATOR followed - Of note, patient reported he often wakes at night with numbness in his hands and feet - MRI of C spine showed severe cervical spinal canal stenosis at C4-5 and C5-6 levels - this was felt to be the more likely etiology of his upper extremity symptoms - Vision changes nonspecific and felt to be unlikely to be vascular in nature - Neurosurgery evaluated prior to DC and recommended OP follow up in 2 weeks - Continue PRN Baclofen at DC - has been helpful - reports aryantne recently stopped taking Celebrex 2/2 kidneys and has had worsening issues with pain since being off of medications Elevated Serum Cr -Patient unsure of diagnosis of CKD, states he was referred to electric meter reader recently - Home Lisinopril recently decreased from 40mg to 20mg (takes 10mg BID) - Home Celebrex recently stopped - Can resume Jardiance, HCTZ and Metformin at DC - Creatinine 1.8 at OSH, improved to 1.57 by 12/28 and 1.7 on day of DC Hyperkalemia - K+ 5.5 - s/p IV calcium gluconate, IV insulin/dextrose with improvement - No recurrence today Sinus clay - Noted on exam and tele - EKG from OSH reviewed - No longer on Metoprolol. Monitor DM2 -Hba1c 6.85% - Can resume home regimen at DC HTN - Can resume home regimen at DC Tobacco abuse -NRT -Cessation encouraged Day of Discharge HPI: In chair. Feeling much better and anxious for DC home. No further vision changes. Neck pain / numbness better. NS evaluated today Review of Systems Gen- No fevers, chills CV- No chest pain, palpitations Resp- No cough, dyspnea GI- No N/V/D, abd pain Vital Signs: Temp: [97.6 ??F (36.4 ??C)-98.1 ??F (36.7 ??C)] 97.9 ??F (36.6 ??C) Heart Rate: [51-62] 60 Resp: [16-18] 18 BP: (138-149)/(63-73) 148/63 Physical Exam: Constitutional: No acute distress, awake, alert and conversant HENT: NCAT, mucous membranes moist Respiratory: Clear to auscultation bilaterally, normal respiratory effort Cardiovascular: RRR Gastrointestinal: Positive bowel sounds, soft, nontender, nondistended Musculoskeletal: No bilateral ankle edema Psychiatric: Appropriate affect, cooperative with exam Neurologic: Oriented x 3, moves all extremities spontaneously without focal deficits, speech clear Skin: No rashes to exposed surfaces Pertinent and/or Most Recent Results LAB RESULTS: Lab 12/28/24 0834 12/27/24 0750 WBC 8.99 7.20 HEMOGLOBIN 13.1 12.5* HEMATOCRIT 37.5 37.0* PLATELETS 172 155 NEUTROS ABS 6.46 -- IMMATURE GRANS (ABS) 0.04 -- LYMPHS ABS 1.37 -- MONOS ABS 0.67 -- EOS ABS 0.38 -- MCV 96.2 96.6 Lab 12/28/24 0834 12/27/24 1016 12/27/24 0750 SODIUM 135* -- 141 POTASSIUM 5.2 4.9 5.5* CHLORIDE 100 -- 104 CO2 25.0 -- 28.0 ANION GAP 10.0 -- 9.0 BUN 30.9* -- 23.5* CREATININE 1.70* -- 1.47* EGFR 43.1* -- 51.3* GLUCOSE 243* -- 167* CALCIUM 9.2 -- 9.3 HEMOGLOBIN A1C -- -- 6.85* Lab 12/27/24 0750 CHOLESTEROL 144 LDL CHOL 71 HDL CHOL 29* TRIGLYCERIDES 270* Brief Urine Lab Results None Microbiology Results (last 10 days) No results found for the last 240 hours. MRI Cervical Spine Without Contrast Result Date: 12/27/2024 MRI CERVICAL SPINE WO CONTRAST Date of Exam: 12/27/2024 4:07 AM EDT Indication: neck pain. Comparison: None available. Technique: Routine multiplanar/multisequence sequence images of the cervical spine were obtained without contrast administration. Findings: The alignment is anatomic. The craniocervical junction appears intact. There is a mild chronic superior endplate compression deformity at T1.There are degenerative endplate changes at C5-6. There are moderate discogenic changes at C5-6, andmild discogenic change at C4-5. The partially visualized posterior fossa contents are unremarkable.The spinal cord appears normal in signal throughout. The prevertebral soft tissues are unremarkable. C2-3: Severe right and moderate left facet arthropathy. Moderate right paracentral osteophyte. No spinal canal stenosis. Severe right neural foraminal stenosis. C3-4: Mild disc osteophyte complex. Severe bilateral facet arthropathy. Mild right and severe left uncovertebral hypertrophy. Mild spinalcanal stenosis. Moderate right and severe left neural foraminal stenosis. C4-5: Moderate disc osteophyte complex with superimposed moderate left paracentral disc protrusion. Severe bilateral facet arthropathy with ligamentum flavum infolding. Moderate bilateral uncovertebral hypertrophy. Severe spinal canal stenosis. Severe right and moderate left neural foraminal stenosis. C5-6: Moderate disc osteophyte complex with superimposed moderate central disc extrusion traversing 5 mm inferiorly. Severe right and moderate left facet arthropathy with ligamentum flavum infolding. Moderate right and severe left uncovertebral hypertrophy. Severe spinal canal stenosis. Moderate right and severe left neural foraminal stenosis. C6-7: Moderate disc osteophyte complex with superimposed small left paracentral disc protrusion. Moderate bilateral facet arthropathy. Moderate bilateral uncovertebral hypertrophy. Mild spinal canal stenosis. Moderate bilateral neural foraminal stenosis. C7-T1: Mild right andmoderate left facet arthropathy. No spinal canal stenosis. No neural foraminal stenosis. Impression: Moderate to severe multilevel degenerative changes of cervical spine as described above. Electronically Signed: Km Sanchez MD 12/27/2024 9:49 AM EDT Workstation ID: [id number] MRI Brain Without Contrast Result Date: 12/27/2024 MRI BRAIN WO CONTRAST Date of Exam: 12/27/2024 4:07 AM EDT Indication: Stroke, follow up transient vision loss. Comparison: None available. Technique: Routine multiplanar/multisequence sequence imagesof the brain were obtained without contrast administration. Findings: There is some motion artifact. Diffusion weighted imaging demonstrates no acute restriction abnormality. Midline structures of the brain appear grossly unremarkable in appearance. Pituitary and sella structures and craniocervicaljunction appear grossly unremarkable in appearance. There is no acute intracranial hemorrhage or mass effect. The ventricles, cisterns and sulci appear appropriate for stated age. Major intracranial flow voids appear grossly patent. Minimal FLAIR and T2 signal hyperintensity within the brain parenchyma compatible with sequela of small vessel ischemic change in this age group. Paranasal sinuses appear well aerated. Small mucous retention cyst inferiorly right maxillary sinus suspected. Motion limited imaging of the globes and orbits appear grossly unremarkable in appearance. Cerebral pontine angle structures and inner ear structures appear grossly unremarkable in appearance. Globes and orbits are grossly unremarkable Impression: 1. No acute intracranial abnormality 2. Minimal white matter changes compatible small vessel ischemic disease in this age group Electronically Signed: David Hines MD 12/27/2024 7:04 AM EDT Workstation ID: [id number] Results for orders placed during the hospital encounter of 12/26/24 Adult Transthoracic Echo Complete W/ Cont if Necessary Per Protocol (With Agitated Saline) 12/26/2024 7:52 PM Interpretation Summary Left ventricular systolic function is normal. Left ventricular ejection fraction appears to be 56 -60%. Left ventricular diastolic function is consistent with (grade I) impaired relaxation. Mild aortic valve stenosis is present. Mean gradient 16 mmHg. There is trace aortic regurgitation. Aortic valve maximum pressure gradient is 16 mmHg. Trace mitral regurgitation. Trace tricuspid regurgitation with normal RVSP. Saline test results are positive. Discharge Details Discharge Medications New Medications Instructions Start Date Accu-Chek Guide Me w/Device kit Use to test blood glucose 4 times daily Accu-Chek Guide Test test strip Generic drug: glucose blood Use as directed to test blood glucose 4 times daily Accu-Chek Softclix Lancets lancets Use as directed to test blood glucose 4 times daily aspirin 81 MG chewable tablet 81 mg, Oral, Daily Start Date: December 29, 2024 atorvastatin 40 MG tablet Commonly known as: LIPITOR 40 mg, Oral, Nightly baclofen 10 MG tablet Commonly known as: LIORESAL 10 mg, Oral, 3 Times Daily PRN nicotine 21 MG/24HR patch Commonly known as: NICODERM CQ 1 patch, Transdermal, Every 24 Hours Changes to Medications Instructions Start Date amLODIPine 5 MG tablet Commonly known as: NORVASC What changed: See the new instructions. 5 mg, Oral, Daily glimepiride 2 MG tablet Commonly known as: AMARYL What changed: See the new instructions. 2 mg, Oral, Every Morning Before Breakfast hydroCHLOROthiazide 25 MG tablet What changed: See the new instructions. 25 mg, Oral, Daily lisinopril 40 MG tablet Commonly known as: PRINIVIL,ZESTRIL What changed: See the new instructions. 20 mg, Oral, 2 Times Daily metFORMIN 1000 MG tablet Commonly known as: GLUCOPHAGE What changed: See the new instructions. 1,000 mg, Oral, 2 Times Daily With Meals Stop These Medications metoprolol succinate XL 25 MG 24 hr tablet Commonly known as: TOPROL-XL pravastatin 80 MG tablet Commonly known as: PRAVACHOL Allergies Allergen Reactions Penicillins Hives Discharge Disposition:Home or Self Care Diet: Diet Instructions Diet: Regular/House Diet, Cardiac Diets, Diabetic Diets; Healthy Heart (2-3 Na+); Soft to Chew (NDD3); Chopped Meat; Thin (IDDSI 0); Consistent Carbohydrate Discharge Diet: Regular/House Diet Cardiac Diets Diabetic Diets Cardiac Diet: Healthy Heart (2-3 Na+) Texture: Soft to Chew (NDD 3) Soft to Chew: Chopped Meat Fluid Consistency: Thin (IDDSI 0) Diabetic Diet: Consistent Carbohydrate Activity: Activity Instructions Activity as Tolerated CODE STATUS: Code Status and Medical Interventions: CPR (Attempt to Resuscitate); Full Support Ordered at: 12/27/24 0428 Code Status (Patient has no pulse and is not breathing): CPR (Attempt to Resuscitate) Medical Interventions (Patient has pulse or is breathing): Full Support Level Of Support Discussed With: Patient No future appointments. Additional Instructions for the Follow-ups that You Need to Schedule Ambulatory Referral to Physical Therapy for Evaluation & Treatment As directed Patient has multilevel cervical spondylosis. Has neck pain and pain that radiates to the top of theshoulders. No weakness Order Comments: Patient has multilevel cervical spondylosis. Has neck pain and pain that radiates to the top of the shoulders. No weakness Specialty needed: Evaluate and treat Follow-up needed: Yes Discharge Follow-up with PCP As directed Currently Documented PCP: Manjeet Griffin MD PCP Follow Up Details: 1 week Discharge Follow-up with Specified Provider: Megan Felipe PA-C with neurosurgery in 2 weeks As directed To: Megan Felipe PA-C with neurosurgery in 2 weeks Melly Mallory PA-C 12/28/24 Time Spent on Discharge: I spent 40 minutes on this discharge activity which included: [id number] with the patient, reviewing the data in the system, coordination of the care with the nursing staff as well as consultants, documentation, and entering orders. Cosigned by Kristy Pelayo MD at 01/10/2025 3:22 PM EDT Associated attestation - Kristy Pelayo MD - 01/10/2025 3:22 PM EDT I was available to answer questions as needed by this APC on this date * Lorenzo Mas, OT - 12/27/2024 7:40 AM EDT Images from the original note were not included. Patient Name: Forrest Renner : 1955 Today's Date: 12/27/2024 Admit Date: 12/26/2024 Visit Dx: No diagnosis found. Patient Active Problem List Diagnosis Bradycardia, sinus Chronic chest pain with low to moderate risk for CAD SOB (shortness of breath) WILL (obstructive sleep apnea) Chronic chest pain with high risk for CAD Abnormal stress test Vision changes Past Medical History: Diagnosis Date Chronic kidney disease Diabetes mellitus Hyperlipidemia Sleep apnea Past Surgical History: Procedure Laterality Date CARDIAC CATHETERIZATION Left 05/30/2023 Procedure: Cardiac Catheterization/Vascular Study; Surgeon: Julio Khanna III, MD; Location: [facility]; Service: Cardiology; Laterality: Left; COLONOSCOPY General Information Row Name 12/27/24918 OT Time and Intention Document Type discharge evaluation/summary -CS Mode of Treatment occupational therapy -CS Row Name 12/27/24918 General Information Patient Profile Reviewed yes -CS Prior Level of Function independent:;all household mobility;ADL's;driving;using stairs;work No AD/DME reported -CS Barriers to Rehab none identified -CS Row Name 12/27/24918 Occupational Profile Reason for Services/Referral (Occupational Profile) stroke eval, discharge planning -CS Row Name 12/27/24918 Living Environment Current Living Arrangements home -CS Row Name 12/27/24918 Home Main Entrance Number of Stairs, Main Entrance one -CS Row Name 12/27/24918 Stairs Within Home, Primary Stairs, Within Home, Primary one level home over basement -CS Row Name 12/27/24918 Cognition Orientation Status (Cognition) oriented x 4 -CS Row Name 12/27/24918 Safety Issues/Impairments Affecting Functional Mobility Impairments Affecting Function (Mobility) pain;range of motion (ROM) -CS Comment, Safety Issues/Impairments (Mobility) none identified, neck pain waxing/waning -CS User Blair (r) = Recorded By, (t) = Taken By, (c) = Cosigned By Initials Name Provider Type CS Lorenzo Mas OT Occupational Therapist Mobility/ADL's Row Name 12/27/24919 Bed Mobility Bed Mobility supine-sit;scooting/bridging -CS Scooting/Bridging [place] (Bed Mobility) independent -CS Supine-Sit [place] (Bed Mobility) modified independence -CS Assistive Device (Bed Mobility) head of bed elevated -CS Comment, (Bed Mobility) appropriate sequencing intact, no dizziness reported -CS Row Name 12/27/24919 Transfers Transfers sit-stand transfer;bed-chair transfer -CS Comment, (Transfers) no dizziness reported, no AD or LOB w/ further mobility -CS Row Name 12/27/24919 Bed-Chair Transfer Bed-Chair [place] (Transfers) independent -CS Row Name 12/27/24919 Sit-Stand Transfer Sit-Stand [place] (Transfers) independent -CS Row Name 12/27/24919 Functional Mobility Functional Mobility- Comment defer to PT for gait specifics, no LOB during ADL related mobility -CS Patient was able to Ambulate yes -CS Row Name 12/27/24919 Activities of Daily Living BADL Assessment/Intervention lower body dressing;grooming;feeding -CS Row Name 12/27/24919 Lower Body Dressing Assessment/Training [place] Level (Lower Body Dressing) don;socks;independent -CS Position (Lower Body Dressing) edge of bed sitting -CS Row Name 12/27/24919 Grooming Assessment/Training [place] Level (Grooming) grooming skills;independent -CS Position (Grooming) sink side -CS Row Name 12/27/24919 Self-Feeding Assessment/Training [place] Level (Feeding) feeding skills;independent -CS Position (Feeding) supported sitting -CS User Blair (r) = Recorded By, (t) = Taken By, (c) = Cosigned By Initials Name Provider Type Lorenzo Meza, OT Occupational Therapist Obj/Interventions Row Name 12/27/24919 Sensory Assessment (Somatosensory) Sensory Assessment (Somatosensory) bilateral UE -CS Bilateral UE Sensory Assessment general sensation;light touch awareness;light touch localization;proprioception;intact - Row Name 12/27/24919 Vision Assessment/Intervention Visual Impairment/Limitations WFL -CS Vision Assessment Comment full to confrontation, tracking intact -CS Row Name 12/27/24919 Range of Motion Comprehensive General Range of Motion no range of motion deficits identified - Row Name 12/27/24919 Strength Comprehensive (MMT) General Manual Muscle Testing (MMT) Assessment no strength deficits identified -CS Comment, General Manual Muscle Testing (MMT) Assessment BUE grossly 5/5, symmetrical -CS Row Name 12/27/24919 Motor Skills Motor Skills coordination;functional endurance -CS Coordination bilateral;upper extremity;finger to nose;bimanual skills;WFL -CS Functional Endurance O2 sats stable on RA -CS Row Name 12/27/24919 Balance Balance Assessment sitting static balance;sitting dynamic balance;standing static balance;standing dynamic balance -CS Static Sitting Balance independent -CS Dynamic Sitting Balance independent -CS Position, Sitting Balance unsupported -CS Static Standing Balance independent -CS Dynamic Standing Balance independent -CS Position/Device Used, Standing Balance unsupported -CS Balance Interventions sitting;standing;sit to stand;occupation based/functional task -CS Comment, Balance no LOB during ADLs or related mobility -CS User Blair (r) = Recorded By, (t) = Taken By, (c) = Cosigned By Initials Name Provider Type CS Lorenzo Mas OT Occupational Therapist Goals/Plan No documentation. Clinical Impression Row Name 12/27/24919 Pain Assessment Pretreatment Pain Rating 3/10 -CS Posttreatment Pain Rating 3/10 -CS Pain Location neck -CS Pain Side/Orientation bilateral;generalized -CS Row Name 12/27/24919 Plan of Care Review Plan of Care Reviewed With patient -CS Progress no change -CS Outcome Evaluation Pt presents at baseline for ADL completion with symmetrical BUE strength and coordination/sensation intact. Visual-perceptual deficits largely resolved, WFL for safe navigation andcompletin of ADLs. OT signing off, please reconsult if needed. Rec d/c to home when medically appropriate. -CS Row Name 12/27/24919 Therapy Assessment/Plan (OT) Criteria for Skilled Therapeutic Interventions Met (OT) no;does not meet criteria for skilled intervention -CS Therapy Frequency (OT) evaluation only -CS Row Name 12/27/24919 Therapy Plan Review/Discharge Plan (OT) Anticipated Discharge Disposition (OT) home -CS Row Name 12/27/24919 Vital Signs Pre Systolic BP Rehab 132 RN cleared for eval -CS Pre Treatment Diastolic BP 63 -CS Post Systolic BP Rehab 137 -CS Post Treatment Diastolic BP 70 -CS O2 Delivery Pre Treatment room air -CS O2 Delivery Intra Treatment room air -CS O2 Delivery Post Treatment room air -CS Pre Patient Position Supine -CS Intra Patient Position Standing -CS Post Patient Position Sitting -CS [facility] Name 12/27/24919 Positioning and Restraints Pre-Treatment Position in bed -CS Post Treatment Position chair -CS In Chair notified nsg;reclined;sitting;call light within reach;encouraged to call for assist;exit alarm on;waffle cushion;heels elevated;legs elevated -CS User Blair (r) = Recorded By, (t) = Taken By, (c) = Cosigned By Initials Name Provider Type CS Lorenzo Mas, ROSANNE Occupational Therapist Outcome Measures Row Name 12/27/24920 How much help from another is currently needed... Putting on and taking off regular lower body clothing? 4 -CS Bathing (including washing, rinsing, and drying) 4 -CS Toileting (which includes using toilet bed almanza or urinal) 4 -CS Putting on and taking off regular upper body clothing 4 -CS Taking care of personal grooming (such as brushing teeth) 4 -CS Eating meals 4 -CS AM-PAC 6 Clicks Score (OT) 24 -CS Row Name 12/27/24 0843 How much help from another person do you currently need... Turning from your back to your side while in flat bed without using bedrails? 4 -AB Moving from lying on back to sitting on the side of a flat bed without bedrails? 4 -AB Moving to and from a bed to a chair (including a wheelchair)? 3 -AB Standing up from a chair using your arms (e.g., wheelchair, bedside chair)? 3 -AB Climbing 3-5 steps with a railing? 3 -AB To walk in hospital room? 3 -AB AM-PAC 6 Clicks Score (PT) 20 -AB Highest Level of Mobility Goal Walk 10 Steps or More-6 -AB Row Name 12/27/24 0921 12/27/24 0843 Modified Su Scale Pre-Stroke Modified Su Scale -- 6 - Unable to determine (UTD) from the medical record documentation -AB Modified [place] Scale 0 - No Symptoms at all. -CS 1 - No significant disability despite symptoms. Able to carry out all usual duties and activities. -AB Row Name 12/27/24 0921 12/27/24 0843 Functional Assessment Outcome Measure Options AM-PAC 6 Clicks Daily Activity (OT);Modified Su -CS AM-PAC 6 Clicks Basic Mobility (PT);Modified Su -AB User Blair (r) = Recorded By, (t) = Taken By, (c) = Cosigned By Initials Name Provider Type CS Lorenzo Mas OT Occupational Therapist AB Amber Oquendo, PT Physical Therapist Occupational Therapy Education Title: PT OT MINGLE OPERATOR Therapies (In Progress) Topic: Occupational Therapy (Done) Point: Precautions (Done) Learning Progress Summary Patient Acceptance, E,D, VU,DU by at 12/27/2024 0922 Comment: in-room safety awareness User Blair Initials Effective Dates Name Provider Type Discipline 11/15/20 - Lorenzo Mas OT Occupational Therapist OT OT Recommendation and Plan Therapy Frequency (OT): evaluation only Plan of Care Review Plan of Care Reviewed With: patient Progress: no change Outcome Evaluation: Pt presents at baseline for ADL completion with symmetrical BUE strength and coordination/sensation intact. Visual-perceptual deficits largely resolved, WFL for safe navigation and completin of ADLs. OT signing off, please reconsult if needed. Rec d/c to home when medically appropriate. Time Calculation: Evaluation Complexity (OT) Review Occupational Profile/Medical/Therapy History Complexity: brief/low complexity Assessment, Occupational Performance/Identification of Deficit Complexity: 1-3 performance deficits Clinical Decision Making Complexity (OT): problem focused assessment/low complexity Overall Complexity of Evaluation (OT): low complexity Time Calculation- OT Row Name 12/27/24 0922 Time Calculation- OT OT Start Time 739 -CS OT Received On 12/27/24 -CS Untimed Charges OT Eval/Re-eval Minutes 37 -CS Total Minutes Untimed Charges Total Minutes 37 -CS Total Minutes 37 -CS User Blair (r) = Recorded By, (t) = Taken By, (c) = Cosigned By Initials Name Provider Type CS Lorenzo Mas OT Occupational Therapist Therapy Charges for Today Code Description Service Date Service Provider Modifiers Qty [id number] HC OT EVAL LOW COMPLEXITY 3 12/27/2024 Lorenzo Mas OT GO 1 Lorenzo Mas OT 12/27/2024 documented in this encounter Discharge Instructions * Attachments The following attachments cannot be sent through Care Everywhere. * Spondylolysis ([place]) * Visual Disturbances ([place]) * Aspirin Tablets ([place]) * Atorvastatin Tablets ([place]) * Baclofen Tablets ([place]) * Nicotine Patches ([place]) documented in this encounter Medications at Time of Discharge amLODIPine (NORVASC) 5 MG tablet Take 1 tablet by mouth Daily. 12/28/2024 aspirin 81 MG chewable tablet Chew 1 tablet Daily. 90 tablet 3 12/29/2024 atorvastatin (LIPITOR) 40 MG tablet Take 1 tablet by mouth Every Night. 90 tablet 3 12/28/2024 baclofen (LIORESAL) 10 MG tablet Take 1 tablet by mouth 3 (Three) Times a Day As Needed for Muscle Spasms. 90 tablet 12/28/2024 Blood Glucose Monitoring Suppl (Blood Glucose Monitor System) w/Device kit Use to test blood glucose 4 times daily 1 each 12/27/2024 4:16 PM EDT 12/27/2024 glimepiride (AMARYL) 2 MG tablet Take 1 tablet by mouth Every Morning Before Breakfast. 12/28/2024 glucose blood (True Metrix Blood Glucose Test) test strip Use as directed to test blood glucose 4 times daily 100 each 12/27/2024 4:16 PM EDT 12/27/2024 hydroCHLOROthiazi de 25 MG tablet Take 1 tablet by mouth Daily. 12/28/2024 Lancets 33G misc Use as directed to test blood glucose 4 times daily 100 each 12/27/2024 4:16 PM EDT 12/27/2024 lisinopril (PRINIVIL,ZESTRIL ) 40 MG tablet Take 0.5 tablets by mouth 2 (Two) Times a Day. 12/28/2024 metFORMIN (GLUCOPHAGE) 1000 MG tablet Take 1 tablet by mouth 2 (Two) Times a Day With Meals. 12/28/2024 nicotine (NICODERM CQ) 21 MG/24HR patch Place 1 patch on the skin as directed by provider Daily. 28 each 1 12/28/2024 documented as of this encounter Progress Notes * Taj Buernostro MD - 12/27/2024 12:44 PM EDT Stroke Progress Note Chief Complaint: Bilateral upper extremity weakness and neck pain Subjective Subjective Subjective: The patient is lying down in the bed in [facility]. The patient's was at the bedside. The patient stated that he is doing better today compared to yesterday. Stated that yesterday he had some neck painthat eventually evolved into weakness of bilateral upper extremities that has improved since yesterday. Stated that she had 1 episode like this recently. The patient denies having any new stroke or strokelike symptoms. I discussed with the patient the imaging finding what could possibly explain hissymptoms. All patient's questions and concerns were answered. No other acute complains at this time Review of Systems Constitutional: No fatigue Objective Temp: [97.6 ??F (36.4 ??C)-98.4 ??F (36.9 ??C)] 97.6 ??F (36.4 ??C) Heart Rate: [51-59] 53 Resp: [16] 16 BP: (114-145)/(59-79) 124/59 Objective GEN: lying in bed; in NAD HENT: normocephalic, non-erythematous oropharynx NEURO: Mental Status: A&O x 3, interactive, able to follow commands Speech: Intact Articulation CN 2-12: II - PERRLA III, IV, - EOMI VII -no gross facial asymmetry VIII -the patient is hard hearing XII - Tongue protrudes midline Motor: Patient can move all 4 extremities against gravity with no drift appreciated Sensory: intact light touch throughout Coordination: no ataxia with [id number] testing Gait/Station: deferred Results Review: I reviewed the patient's new clinical results. WBC Date Value Ref Range Status 12/27/2024 7.20 3.40 - 10.80 10*3/mm3 Final RBC Date Value Ref Range Status 12/27/2024 3.83 (L) 4.14 - 5.80 10*6/mm3 Final Hemoglobin Date Value Ref Range Status 12/27/2024 12.5 (L) 13.0 - 17.7 g/dL Final Hematocrit Date Value Ref Range Status 12/27/2024 37.0 (L) 37.5 - 51.0 % Final MCV Date Value Ref Range Status 12/27/2024 96.6 79.0 - 97.0 fL Final MCH Date Value Ref Range Status 12/27/2024 32.6 26.6 - 33.0 pg Final MCHC Date Value Ref Range Status 12/27/2024 33.8 31.5 - 35.7 g/dL Final RDW Date Value Ref Range Status 12/27/2024 11.7 (L) 12.3 - 15.4 % Final RDW-SD Date Value Ref Range Status 12/27/2024 41.2 37.0 - 54.0 fl Final MPV Date Value Ref Range Status 12/27/2024 10.4 6.0 - 12.0 fL Final Platelets Date Value Ref Range Status 12/27/2024 155 140 - 450 10*3/mm3 Final Lab Results Component Value Date GLUCOSE 167 (H) 12/27/2024 BUN 23.5 (H) 12/27/2024 CREATININE 1.47 (H) 12/27/2024 NA 141 12/27/2024 K 4.9 12/27/2024 CL 104 12/27/2024 CALCIUM 9.3 12/27/2024 PROTEINTOT 6.2 05/30/2023 ALBUMIN 4.0 05/30/2023 ALT 15 05/30/2023 AST 16 05/30/2023 ALKPHOS 74 05/30/2023 BILITOT 0.5 05/30/2023 GLOB 2.2 05/30/2023 AGRATIO 1.8 05/30/2023 BCR 16.0 12/27/2024 ANIONGAP 9.0 12/27/2024 EGFR 51.3 (L) 12/27/2024 MRI Cervical Spine Without Contrast Result Date: 12/27/2024 Impression: Moderate to severe multilevel degenerative changes of cervical spine as described above. Electronically Signed: Km Sanchez MD 12/27/2024 9:49 AM EDT Workstation ID: [id number] MRI Brain Without Contrast Result Date: 12/27/2024 Impression: 1. No acute intracranial abnormality 2. Minimal white matter changes compatible small vessel ischemic disease in this age group Electronically Signed: David Hines MD 12/27/2024 7:04 AM EDT Workstation ID: [id number] Results for orders placed during the hospital encounter of 12/26/24 Adult Transthoracic Echo Complete W/ Cont if Necessary Per Protocol (With Agitated Saline) 12/26/2024 7:52 PM Interpretation Summary Left ventricular systolic function is normal. Left ventricular ejection fraction appears to be 56 -60%. Left ventricular diastolic function is consistent with (grade I) impaired relaxation. Mild aortic valve stenosis is present. Mean gradient 16 mmHg. There is trace aortic regurgitation. Aortic valve maximum pressure gradient is 16 mmHg. Trace mitral regurgitation. Trace tricuspid regurgitation with normal RVSP. Saline test results are positive. -MRI brain images from 12/27/2024 were personally reviewed and showed no ischemic or hemorrhagic stroke -MRI cervical spine images from 12/27/2024 were personally reviewed and showed multilevel spinal degenerative disc disease with severe spinal canal stenosis at the level of C4-C5 and C5-C6 with similar stenosis affecting the neuroforaminal spaces at both of the aforementioned levels. -Transthoracic echocardiogram from 12/26/2024 report was personally reviewed and showed left ventricular ejection fraction of 56 to 60%, no left atrial dilation and positive bubble study -A1c from 12/27/2024 was 6.85% -LDL from 12/27/2024 was 71 Assessment/Plan 69-year-old male with a PMH significant for HTN, HLD, T2DM, WILL, tobacco abuse who presents to [facility] via EMS transfer from [facility] where he initially presented with transient vision changes and neck pain that began yesterday at 1330.He reports that he had black floaters in the left peripheral visual patino of the right and left eye.This morning, he woke with worsening neck pain. While taking a shower, he felt as though a cloud was coming over his vision. This lasted for several minutes prior to resolving. He taken to the OSH for further evaluation. CT head there was negative for any acute process. OSH CTA H/N with mild atherosclerotic disease and no LVO. He was not a candidate for TNK due to LKW. He was not a candidate for neurointervention as no LVO was noticed on advanced imaging. He was transferred to [facility] for MRI and higher level of care. Antiplatelet SERVICE LIAISON REPRESENTATIVE: None Anticoagulant SERVICE LIAISON REPRESENTATIVE: None #Transient vision changes #Neck pain #Multiple vascular risk factors (HTN, HLD, T2DM, WILL, tobacco use) - Etiology of patient's symptoms likely due to severe cervical spinal canal stenosis at the level of C4-C5 and C5-C6. The patient's transient vision changes are nonspecific and less likely to be vascular in nature. -MRI brain images from 12/27/2024 were personally reviewed and showed no ischemic or hemorrhagic stroke -MRI cervical spine images from 12/27/2024 were personally reviewed and showed multilevel spinal degenerative disc disease with severe spinal canal stenosis at the level of C4-C5 and C5-C6 with similar stenosis affecting the neuroforaminal spaces at both of the aforementioned levels. -Transthoracic echocardiogram from 12/26/2024 report was personally reviewed and showed left ventricular ejection fraction of 56 to 60%, no left atrial dilation and positive bubble study -A1c from 12/27/2024 was 6.85% -LDL from 12/27/2024 was 71 Recommendations -Neurosurgery consult is needed regarding severe spinal canal stenosis -Consider continuing aspirin 81 mg daily for primary stroke prevention in the setting of uncontrolled diabetes and hyperlipidemia. -Consider discontinuing Plavix as symptoms is explained by severe spinal canal stenosis -Continue atorvastatin 80 mg nightly for primary stroke prevention in the setting of uncontrolled hyperlipidemia. Target LDL level of less than 70 -Regarding the positive bubble study, this is incidentally found and is likely not contributing to the patient's symptoms. The patient can follow-up with cardiology as an outpatient to further discuss management options if any different. -SBP goals of normotension -Activity as tolerated -Smoking cessation counseling -Neck pain/tightness; baclofen 10 mg twice daily, K-pad to affected area as needed -PT/OT/MINGLE OPERATOR Patient education: call 911 or present to emergency department with any stroke symptom, including unilateral face, arm, or leg weakness, numbness, or paresthesias, unilateral facial droop, speech deficits, dizziness with nausea, vomiting, nystagmus, and incoordination, visual deficits, or severe onset headache. Stroke will sign off. Please call for any further questions or concerns Taj Buenrostro MD, Msc, PhD Vascular Neurologist [facility] * Marium Dos Santos MD - 12/27/2024 4:18 AM EDT Images from the original note were not included. [facility] PROGRESS NOTE Patient Name: Forrest Renner : 1955 Date of Admission: 12/26/2024 Primary Care Physician: Manjeet Griffin MD Subjective Subjective CC: Vision changes HPI: Doing well this am, denies any new issues overnight, vision is better. Objective Objective Vital Signs: Temp: [97.4 ??F (36.3 ??C)-98.4 ??F (36.9 ??C)] 98.4 ??F (36.9 ??C) Heart Rate: [51-59] 54 Resp: [16-18] 16 BP: (114-145)/(63-79) 132/63 Physical Exam: Constitutional: No acute distress, awake, alert HENT: NCAT, mucous membranes moist Respiratory: Clear to auscultation bilaterally, respiratory effort normal Cardiovascular: RRR, no murmurs, rubs, or gallops Gastrointestinal: Positive bowel sounds, soft, nontender, nondistended Musculoskeletal: No bilateral ankle edema Psychiatric: Appropriate affect, cooperative Neurologic: Oriented x 3, strength symmetric in all extremities, Cranial Nerves grossly intact to confrontation, speech clear Skin: No rashes Results Reviewed: LAB RESULTS: Lab 12/27/24 0750 WBC 7.20 HEMOGLOBIN 12.5* HEMATOCRIT 37.0* PLATELETS 155 MCV 96.6 Lab 12/27/24 0750 SODIUM 141 POTASSIUM 5.5* CHLORIDE 104 CO2 28.0 ANION GAP 9.0 BUN 23.5* CREATININE 1.47* EGFR 51.3* GLUCOSE 167* CALCIUM 9.3 HEMOGLOBIN A1C 6.85* Lab 12/27/24 0750 CHOLESTEROL 144 LDL CHOL 71 HDL CHOL 29* TRIGLYCERIDES 270* Brief Urine Lab Results None Microbiology Results Abnormal None MRI Brain Without Contrast Result Date: 12/27/2024 MRI BRAIN WO CONTRAST Date of Exam: 12/27/2024 4:07 AM EDT Indication: Stroke, follow up transient vision loss. Comparison: None available. Technique: Routine multiplanar/multisequence sequence imagesof the brain were obtained without contrast administration. Findings: There is some motion artifact. Diffusion weighted imaging demonstrates no acute restriction abnormality. Midline structures of the brain appear grossly unremarkable in appearance. Pituitary and sella structures and craniocervicaljunction appear grossly unremarkable in appearance. There is no acute intracranial hemorrhage or mass effect. The ventricles, cisterns and sulci appear appropriate for stated age. Major intracranial flow voids appear grossly patent. Minimal FLAIR and T2 signal hyperintensity within the brain parenchyma compatible with sequela of small vessel ischemic change in this age group. Paranasal sinuses appear well aerated. Small mucous retention cyst inferiorly right maxillary sinus suspected. Motion limited imaging of the globes and orbits appear grossly unremarkable in appearance. Cerebral pontine angle structures and inner ear structures appear grossly unremarkable in appearance. Globes and orbits are grossly unremarkable Impression: Impression: 1. No acute intracranial abnormality 2. Minimal white matter changes compatible small vessel ischemic disease in this age group Electronically Signed: David Hines MD 12/27/2024 7:04 AM EDT Workstation ID: [id number] Results for orders placed during the hospital encounter of 12/26/24 Adult Transthoracic Echo Complete W/ Cont if Necessary Per Protocol (With Agitated Saline) 12/26/2024 7:52 PM Interpretation Summary Left ventricular systolic function is normal. Left ventricular ejection fraction appears to be 56 -60%. Left ventricular diastolic function is consistent with (grade I) impaired relaxation. Mild aortic valve stenosis is present. Mean gradient 16 mmHg. There is trace aortic regurgitation. Aortic valve maximum pressure gradient is 16 mmHg. Trace mitral regurgitation. Trace tricuspid regurgitation with normal RVSP. Saline test results are positive. Current medications: Scheduled Meds:[Held by provider] amLODIPine, 5 mg, Oral, Q24H aspirin, 81 mg, Oral, Daily Or aspirin, 300 mg, Rectal, Daily atorvastatin, 80 mg, Oral, Nightly baclofen, 10 mg, Oral, Q12H calcium gluconate, 1,000 mg, Intravenous, Once clopidogrel, 75 mg, Oral, Daily dextrose, 25 g, Intravenous, Once [Held by provider] hydroCHLOROthiazide, 25 mg, Oral, Daily insulin lispro, 2-7 Units, Subcutaneous, 4x Daily AC & at Bedtime insulin regular, 10 Units, Intravenous, Once lisinopril, 10 mg, Oral, Q12H nicotine, 1 patch, Transdermal, Q24H sodium bicarbonate, 50 mEq, Intravenous, Once sodium chloride, 10 mL, Intravenous, Q12H sodium chloride, 10 mL, Intravenous, Q12H Continuous Infusions: PRN Meds:. acetaminophen OR acetaminophen OR acetaminophen senna-docusate sodium AND polyethylene glycol AND bisacodyl AND bisacodyl dextrose dextrose glucagon (human recombinant) nicotine polacrilex nitroglycerin ondansetron ODT OR ondansetron sodium chloride sodium chloride sodium chloride sodium chloride Assessment & Plan Assessment & Plan Active Hospital Problems Diagnosis POA Vision changes [H53.9] Yes Bradycardia, sinus [R00.1] Yes WILL (obstructive sleep apnea) [G47.33] Yes Resolved Hospital Problems No resolved problems to display. Brief Hospital Course to date: Forrest Renner is a 69 y.o. male with PMHx HTN, DM2, recent Dx CKD, WILL who presented as a transfer from [facility] with neck pain with radiation to his shoulders associated with bilateral vision changes. Bilateral shoulder/neck pain Vision changes, bilateral -CT head there was negative for any acute process. -OSH CTA H/N with mild atherosclerotic disease and no LVO. -He was not a candidate for TNK due to LKW -He was not a candidate for neurointervention as no LVO was noticed on advanced imaging -MRI brain negative for CVA -- MRI C spine pending read -TTE with positive bubble study, TCD and BLE duplex PENDING -Aspirin 325 mg daily given at the OSH. Continue aspirin 81 mg in the a.m. -given Plavix 300 mg x 1 on admission, now on 75 mg daily -Atorvastatin 80 mg daily -LDL 71, hemoglobin A1c 6.85% -PT/OT/MINGLE OPERATOR -Passed bedside swallow, diet given -Of note, states he often wakes up at night and has numbness in his hands and feet Elevated Serum Cr -Patient unsure of diagnosis of CKD, states he was referred to Station Engineer recently -His lisinopril was recently decreased from 40mg to 20mg. He takes 10mg AM and 10mg PM -His Celebrex was stopped recently. Apparently his dose at one point was increased and patient didn't realize this so was taking too much. -Of note, patient also on Jardiance, HCTZ, Metformin at home. Hold for now -Monitor as received contrast for CTA imaging at OSH -s/p gentle IVF overnight -BUN 30/Cr 1.8 at OSH. Cr improved this am to 1.47 -- monitor as resuming anti-hypertensives Hyperkalemia -- mild at 5.5, no hemolysis noted -- give IV Calcium gluconate, IV insulin/dextrose, repeat labs in about an hour -- monitor with resuming ACEI Sinus clay -noted on exam and tele -EKG from OSH reviewed DM2 -On Metformin, Jardiance, Glimperide outpatient. Holding. -Hba1c 6.85% -SSI HTN -resume Lisinopril, Norvasc, hold HCTZ for now -Not on any beta blockers Tobacco abuse -NRT -Cessation encouraged Total time spent: Time Spent: Time Spent: 35 minutes Time spent includes time reviewing chart, [id number] time, counseling patient/family/caregiver, ordering medications/tests/procedures, communicating with other health critical care technician, documenting clinical information in the electronic health record, and coordination of care. Expected Discharge Location and Transportation: possibly tomorrow after TCD, BLE duplex are done/when okay with Neuro Expected Discharge Expected Discharge Date: 12/28/2024; Expected Discharge Time: VTE Prophylaxis: Mechanical VTE prophylaxis orders are present. AM-PAC 6 Clicks Score (PT): 20 (12/27/24 0843) CODE STATUS: Code Status and Medical Interventions: CPR (Attempt to Resuscitate); Full Support Ordered at: 12/27/24 0428 Code Status (Patient has no pulse and is not breathing): CPR (Attempt to Resuscitate) Medical Interventions (Patient has pulse or is breathing): Full Support Level Of Support Discussed With: Patient Marium Dos Santos MD 12/27/24 documented in this encounter H&P Notes * Lynn Valle, DO - 12/26/2024 3:09 PM EDT Images from the original note were not included. [facility] HISTORY AND PHYSICAL Patient Name: Forrest Renner : 1955 Primary Care Physician: Manjeet Griffin MD Date of admission: 12/26/2024 Subjective Subjective Chief Complaint: Bilateral neck/shoulder pain with vision changes HPI: Forrest Renner is a 69 y.o. male with PMHx HTN, DM2, recent Dx CKD, WILL who presents as a transfer from [facility]. Patient initially seen there due to neck pain that radiated to shoulders associated with vision changes. Patient states he woke up this morning around 0420 and had pain inhis neck and R shoulder than then radiated over to L shoulder. He had a similar episode a few weeksago. States he thought it was due to being in the car a lot, he traveled to [place]. He noticed what seemed like floaters in his L upper/outer eye as well as something in the R lower visual field. This morning when he was trying to get in the shower, it felt like a cloud was over his eye. States that resolved once he got in the water. Does endorse a headache yesterday. Denies history of migraines. States that his primary care physician recently lowered his lisinopril from 40 mg to 20 mg due to his recent renal function. States that his Celebrex was also recently stopped. Per patient's his dose had been increased but the patient did not realize this and he was still taking 2 pills/day due to right knee pain. He is scheduled to see a electric meter reader. On exam, he denies current visual deficits. He still has pain in his neck and in his shoulders. He denies any chest pain, shortness of breath, nausea, vomiting, diarrhea, abdominal pain. Stroke neurology evaluating. MRI brain pending. Personal History Past Medical History: Diagnosis Date Chronic kidney disease Diabetes mellitus Hyperlipidemia Sleep apnea Past Surgical History: Procedure Laterality Date CARDIAC CATHETERIZATION Left 05/30/2023 Procedure: Cardiac Catheterization/Vascular Study; Surgeon: Julio Khanna III, MD; Location: [facility] CATH INVASIVE LOCATION; Service: Cardiology; Laterality: Left; COLONOSCOPY Family History: family history includes Hypertension in his father. Social History: reports that he has been smoking cigarettes. He has a 69 pack- year smoking history.He has never been exposed to tobacco smoke. He has never used smokeless tobacco. Alcohol use questions deferred to the physician. He reports that he does not currently use drugs. Social History Social History Narrative Not on file Medications: Available home medication information reviewed. amLODIPine, glimepiride, hydroCHLOROthiazide, lisinopril, metFORMIN, metoprolol succinate XL, and pravastatin Allergies Allergen Reactions Penicillins Hives Objective Objective Vital Signs: Temp: [97.4 ??F (36.3 ??C)] 97.4 ??F (36.3 ??C) Heart Rate: [52] 52 Resp: [18] 18 BP: (139)/(63) 139/63 Total (NIH Stroke Scale): 0 Physical Exam Constitutional: Awake, alert, NAD, non-toxic, pleasant Eyes: PERRLA, sclerae anicteric, no conjunctival injection HENT: NCAT, mucous membranes moist Neck: Supple, no thyromegaly, no lymphadenopathy, trachea midline Respiratory: Clear to auscultation bilaterally, nonlabored respirations Cardiovascular: RRR, no murmurs, rubs, or gallops, palpable pedal pulses bilaterally Gastrointestinal: Positive bowel sounds, soft, nontender, nondistended Musculoskeletal: No bilateral ankle edema, no clubbing or cyanosis to extremities. C spine with paraspinal fullness/muscle tension noted Psychiatric: Appropriate affect, cooperative Neurologic: Oriented x 3, strength symmetric in all extremities, Cranial Nerves grossly intact to confrontation, speech clear Skin: No rashes Result Review: I have personally reviewed the results from the time of this admission to 12/26/2024 15:26 EDT and agree with these findings: [x] Laboratory list / accordion [] Microbiology [x] Radiology [x] EKG/Telemetry [] Cardiology/Vascular [] Pathology [] Old records [] Other: LAB RESULTS: Outside hospital records reviewed: White blood cell count 7.5, hemoglobin 12.4, medic at 36, platelets 167 Sodium 135, potassium 5.1, chloride 93, CO2 25, BUN 30, creatinine 1.8, glucose 204 EKG with sinus bradycardia CTA head and neck with mild mixed atheromatous and calcified plaque along the right carotid bifurcation and carotid bulb with mild approximately 20% proximal right ICA stenosis. No evidence of significant intracranial vascular disease or acute large vessel occlusion. CT head with diffuse atrophy and mild chronic/remote ischemic changes without evidence of superimposed acute infarct, hemorrhage or mass effect at this time. CTA chest with no evidence of pulmonary embolus, no aneurysm of the aorta, no dissection of the aorta, complex left adrenal nodule. Microbiology Results (last 10 days) No results found for the last 240 hours. No radiology results from the last 24 hrs Results for orders placed in visit on 04/30/23 Adult Stress Echo W/ Cont or Stress Agent if Necessary Per Protocol 05/08/2023 10:13 AM Interpretation Summary Abnormal stress echo with echocardiographic evidence for myocardial ischemia. The following left ventricular wall segments are hypokinetic: basal inferoseptal, basal inferior and basal inferoseptal. Assessment & Plan Assessment & Plan Vision changes Bradycardia, sinus WILL (obstructive sleep apnea) Bilateral shoulder/neck pain Vision changes, bilateral -CT head there was negative for any acute process. -OSH CTA H/N with mild atherosclerotic disease and no LVO. -He was not a candidate for TNK due to LKW -He was not a candidate for neurointervention as no LVO was noticed on advanced imaging -MRI brain pending -MRI C spine pending -TTE pending -Aspirin 325 mg daily given at the OSH. Continue aspirin 81 mg in the a.m. -Plavix 300 mg x 1 followed by 75 mg daily -Atorvastatin 80 mg daily -Lipid panel, hemoglobin A1c in the a.m. -SBP goals <200. 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 He takes 10mg AM and 10mg PM -His Celebrex was stopped recently. Apparently his dose at one point was increased and patient didn't realize this so was taking too much. -Of note, patient also on Jardiance, HCTZ, Metformin at home. Hold for now -Monitor as received contrast for CTA imaging at OSH -Will give gentle IVF overnight -BUN 30/Cr 1.8 at OSH Sinus lcay -noted on exam and tele -EKG from OSH reviewed DM2 -On Metformin, Jardiance, Glimperide outpatient. Holding. -Hga1c pending -SSI HTN -Goal <200/100 -Hold Lisinopril, Norvasc, HCTZ for now -Not on Metoprolol Tobacco abuse -NRT -Cessation encouraged VTE Prophylaxis: Mechanical VTE prophylaxis orders are present. CODE STATUS: There are no questions and answers to display. Expected Discharge Expected Discharge Date: 12/27/2024; Expected Discharge Time: Lynn Valle DO 12/26/24 documented in this encounter Consult Notes * Tawnya Felipe PA-C - 12/28/2024 12:47 PM EDTAssociated Order(s): IP CONSULT TO NEUROSURGERY Images from the original note were not included. [facility] Referring Provider: Hospital medicine Reason for Consultation: Cervical stenosis Primary Provider: Manjeet Griffin MD [phone] Forrest Renner is a 69 y.o. male CC: Posterior cervical pain that radiates to the top of the shoulders History of Present Illness Mr. 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 He has had a little bit of neck pain however he did have a significant onset of pain on 12/26/2024. He took his usual aspirin and a hot shower but did not have any relief. He also had some vision changes and these combined took him to the emergency room. He was transferred to [facility] for evaluation of TIA. In the process of his stroke workup he complained of neck pain and underwent a cervical MRI which showed multilevel degenerative disc disease. Neurosurgery has been asked to see. chronic medical conditions: Past Medical History: Diagnosis Date Chronic kidney disease Diabetes mellitus Hyperlipidemia Sleep apnea Allergies Allergen Reactions Penicillins Hives Current Facility-Administered Medications: acetaminophen (TYLENOL) tablet 650 mg, 650 mg, Oral, Q4H PRN OR acetaminophen (TYLENOL) 160 MG/5ML oral solution 650 mg, 650 mg, Oral, Q4H PRN OR acetaminophen (TYLENOL) suppository 650 mg, 650 mg, Rectal, Q4H PRN, Lynn Valle, amLODIPine (NORVASC) tablet 5 mg, 5 mg, Oral, Q24H, Melly Mallory PA-C, 5 mg at 12/28/24 0903 aspirin chewable tablet 81 mg, 81 mg, Oral, Daily, 81 mg at 12/28/24 0855 OR [DISCONTINUED] aspirin suppository 300 mg, 300 mg, Rectal, Daily, Dania Chakarborty APRN atorvastatin (LIPITOR) tablet 80 mg, 80 mg, Oral, Nightly, Dania Chakraborty APRN, 80 mg at 12/27/24 2102 baclofen (LIORESAL) tablet 10 mg, 10 mg, Oral, Q12H, Dania Chakraborty APRN, 10 mg at 12/28/24 0856 sennosides-docusate (PERICOLACE) 8.6-50 MG per tablet 2 tablet, 2 tablet, Oral, BID PRN AND polyethylene glycol (MIRALAX) packet 17 g, 17 g, Oral, Daily PRN AND bisacodyl (DULCOLAX) EC tablet5 mg, 5 mg, Oral, Daily PRN AND bisacodyl (DULCOLAX) suppository 10 mg, 10 mg, Rectal, Daily PRN, Lynn Valle DO [COMPLETED] clopidogrel (PLAVIX) tablet 300 mg, 300 mg, Oral, Once, 300 mg at 12/26/24 1446 ANDclopidogrel (PLAVIX) tablet 75 mg, 75 mg, Oral, Daily, Dania Chakraborty, ASSEMBLY INSTRUCTIONS WRITER, 75 mg at 856 dextrose (D50W) (25 g/50 mL) IV injection 25 g, 25 g, Intravenous, Q15 Min PRN, Lynn Valle DO dextrose (GLUTOSE) oral gel 15 g, 15 g, Oral, Q15 Min PRN, Lynn Valle DO empagliflozin (JARDIANCE) tablet 25 mg, 25 mg, Oral, Daily, Melly Mallory PA-C, 25 mg at 12/28/24 0903 glucagon (GLUCAGEN) injection 1 mg, 1 mg, Intramuscular, Q15 Min PRN, Lynn Valle DO [Held by provider] hydroCHLOROthiazide tablet 25 mg, 25 mg, Oral, Daily, Lynn Valle DO Insulin Lispro (humaLOG) injection 2-7 Units, 2-7 Units, Subcutaneous, 4x Daily AC & at Bedtime, Lynn Valle DO, 2 Units at 12/28/24 1230 lisinopril (PRINIVIL,ZESTRIL) tablet 10 mg, 10 mg, Oral, Q12H, Marium Dos Santos MD, 10 mg at 12/28/24 0855 metFORMIN (GLUCOPHAGE) tablet 1,000 mg, 1,000 mg, Oral, BID With Meals, Melly Mallory PA-C, 1,000 mg at 12/28/24 0903 nicotine (NICODERM CQ) 21 MG/24HR patch 1 patch, 1 patch, Transdermal, Q24H, Lynn Valle DO nicotine polacrilex (NICORETTE) gum 4 mg, 4 mg, Mouth/Throat, Q1H PRN, Lynn Valle DO nitroglycerin (NITROSTAT) SL tablet 0.4 mg, 0.4 mg, Sublingual, Q5 Min PRN, Lynn Valle, DO ondansetron ODT (ZOFRAN-ODT) disintegrating tablet 4 mg, 4 mg, Oral, Q6H PRN OR ondansetron (ZOFRAN) injection 4 mg, 4 mg, Intravenous, Q6H PRN, Lynn Valle, DO sodium chloride 0.9 % flush 10 mL, 10 mL, Intravenous, Q12H, Dania Chakraborty, ASSEMBLY INSTRUCTIONS WRITER, 10 mL at 12/28/24 0904 sodium chloride 0.9 % flush 10 mL, 10 mL, Intravenous, PRN, Dania Chakraborty, ASSEMBLY INSTRUCTIONS WRITER sodium chloride 0.9 % flush 10 mL, 10 mL, Intravenous, Q12H, Lynn Valle, DO, 10 mL at 12/28/24 0904 sodium chloride 0.9 % flush 10 mL, 10 mL, Intravenous, PRN, Lynn Valle, DO sodium chloride 0.9 % infusion 40 mL, 40 mL, Intravenous, PRN, Dania Chakraborty, ASSEMBLY INSTRUCTIONS WRITER sodium chloride 0.9 % infusion 40 mL, 40 mL, Intravenous, PRN, Lynn Valle, DO Past Surgical History: Procedure Laterality Date CARDIAC CATHETERIZATION Left 05/30/2023 Procedure: Cardiac Catheterization/Vascular Study; Surgeon: Julio Khanna III, MD; Location: [facility] INVASIVE LOCATION; Service: Cardiology; Laterality: Left; COLONOSCOPY Social History Socioeconomic History Marital status: Tobacco Use Smoking status: Every Day Current packs/day: 1.50 Average packs/day: 1.5 packs/day for 46.0 years (69.0 ttl pk-yrs) Types: Cigarettes Passive exposure: Never Smokeless tobacco: Never Vaping Use Vaping status: Never Used Substance and Sexual Activity Alcohol use: Defer Drug use: Not Currently Sexual activity: Yes Partners: Female Family History Problem Relation Age of Onset Hypertension Father ROS: Pertinent items are noted in HPI, all other systems reviewed and negative. I have reviewed and confirmed the accuracy of the ROS as documented by the MA/PICKING BELT OPERATOR/RN Tawnya Felipe PA-C Physical Exam BP 148/63 (BP Location: Right arm, Patient Position: Sitting) Pulse 60 Temp 97.9 ??F (36.6 ??C)(Oral) Resp 18 Ht 175.3 cm (69.02 ) Wt 92.8 kg (204 lb 9.4 oz) SpO2 95% BMI 30.20 kg/m?? HEENT:WNL Neck: supple Lungs: normal expansion COR: RRR Abd: non tender EXT: +pulses, -edema Neurological Exam CRANIAL NERVES: Cranial nerve II: Visual patino are full to confrontation. Cranial nerves III, IV and : PERRLADC. Extraocular movements are intact. Nystagmus is not present. Cranial nerve V: Facial sensation is intact to light touch. Cranial nerve VII: Muscles of facial expression reveal no asymmetry. Cranial nerve VIII: Hearing is intact to finger rub bilaterally. Cranial nerves IX and X: Palate elevates symmetrically. Cranial nerve XI: Shoulder shrug is intact. Cranial nerve XII: Tongue is midline without evidence of atrophy or fasciculation. Motor examination does not reveal any focal weakness in the upper or lower extremities. His gait isnormal. Balance is normal. Sensory examination in the upper extremities is intact. Results Reviewed: I have personally reviewed the laboratory data and imaging results. Radiological studies: LABS: Lab Results (last 24 hours) Procedure Component Value Units Date/Time POC Glucose Once [[id number]] (Abnormal) Collected: 12/28/24 1206 Specimen: Blood Updated: 12/28/24 1207 Glucose 171 mg/dL Basic Metabolic Panel [[id number]] (Abnormal) Collected: 12/28/24 0834 Specimen: Blood Updated: 12/28/24 0941 Glucose 243 mg/dL BUN 30.9 mg/dL Creatinine 1.70 mg/dL Sodium 135 mmol/L Potassium 5.2 mmol/L Chloride 100 mmol/L CO2 25.0 mmol/L Calcium 9.2 mg/dL BUN/Creatinine Ratio 18.2 Anion Gap 10.0 mmol/L eGFR 43.1 mL/min/1.73 Narrative: GFR Categories in Chronic Kidney Disease (CKD) GFR Category GFR (mL/min/1.73) Interpretation G1 90 or greater Normal or high (1) G2 60-89 Mild decrease (1) G3a 45-59 Mild to moderate decrease G3b 30-44 Moderate to severe decrease G4 15-29 Severe decrease G5 14 or less Kidney failure (1)In the absence of evidence of kidney disease, neither GFR category G1 or G2 fulfill the criteriafor CKD. eGFR calculation 2020 CKD-EPI creatinine equation, which does not include race as a factor CBC & Differential [[id number]] (Abnormal) Collected: 12/28/24833 Specimen: Blood Updated: 12/28/24902 Narrative: The following orders were created for panel order CBC & Differential. Procedure Abnormality Status --------- ------ CBC Auto Differential[[id number]] Abnormal Final result Please view results for these tests on the individual orders. CBC Auto Differential [[id number]] (Abnormal) Collected: 12/28/24833 Specimen: Blood Updated: 12/28/24902 WBC 8.99 10*3/mm3 RBC 3.90 10*6/mm3 Hemoglobin 13.1 g/dL Hematocrit 37.5 % MCV 96.2 fL MCH 33.6 pg MCHC 34.9 g/dL RDW 11.7 % RDW-SD 40.6 fl MPV 10.4 fL Platelets 172 10*3/mm3 Neutrophil % 71.9 % Lymphocyte % 15.2 % Monocyte % 7.5 % Eosinophil % 4.2 % Basophil % 0.8 % Immature Grans % 0.4 % Neutrophils, Absolute 6.46 10*3/mm3 Lymphocytes, Absolute 1.37 10*3/mm3 Monocytes, Absolute 0.67 10*3/mm3 Eosinophils, Absolute 0.38 10*3/mm3 Basophils, Absolute 0.07 10*3/mm3 Immature Grans, Absolute 0.04 10*3/mm3 nRBC 0.0 /100 WBC POC Glucose Once [[id number]] (Abnormal) Collected: 12/28/24813 Specimen: Blood Updated: 12/28/24814 Glucose 224 mg/dL POC Glucose Once [[id number]] (Abnormal) Collected: 12/27/241954 Specimen: Blood Updated: 12/27/241955 Glucose 242 mg/dL POC Glucose Once [[id number]] (Abnormal) Collected: 12/27/241801 Specimen: Blood Updated: 12/27/241803 Glucose 291 mg/dL [facility] Assessment and Plan: This is a 69-year-old gentleman with past medical history significant for hypertension, hyperlipidemia, type 2 diabetes, obstructive sleep apnea, tobacco abuse, osteoarthritis. The patient presented to outside hospital with vision changes, black floaters in the left peripheral vision patino of the right and left eye. This occurred on 12/26/2024. Head CT was negative CTA showed mild atheroscleroticdisease, no LVO. The patient has chronic neck pain but his neck pain became worse, cervical MRI wasobtained which shows moderate to severe multilevel degenerative disc disease. There is significant stenosis at C4-5, severe stenosis at C5-6 there is a trace of CSF noted. Moderate stenosis at C6-7. 1. Cervical spondylosis, neck pain, 2. Recent TIA 3. Recent positive bubble study Patient may be discharged home from a neurosurgical perspective. I have placed an order to follow-up with me in the office in 2 weeks. I have also placed an outpatient order for physical therapy thatcan be done close to home. I talked to the patient and the son in the room, the was on the telephone. I did give him permission to continue with his current jobs but to limit his lifting and to slow down and rest throughout the day at times. He does realize that if he has any difficulties withworsening pain numbness tingling heaviness in his arms or legs he is to immediately give us a call in the office. Any copied data from previous notes included in the (1) HPI, (2) PE, (3) MDM and/or assessment and plan has been reviewed and is accurate as of this date. Tawnya Felipe PA-C 12/28/24 12:48 EDT Cosigned by Rajendra Vela MD at 12/28/2024 2:04 PM EDT Associated attestation - Rajendra Vela MD - 12/28/2024 2:04 PM EDT I have reviewed this documentation and agree. * Radha Fernandez RN - 12/27/2024 3:04 PM EDT Images from the original note were not included. Diabetes Education Assessment/Teaching Patient Name: Forrest Renner Date of : 1955 Admit Date: 12/26/2024 Assessment Date: 12/27/2024 Flowsheet Row Most Recent Value General Information Referral From: Other (comment) [stroke protocol] Height 175.3 cm (69.02 ) Weight 92.8 kg (204 lb 9.4 oz) Is patient ? n/a Assessment Diabetes History What type of diabetes do you have? Type 2 Current DM knowledge good Do you test your blood sugar at home? no Have you had low blood sugar? (<70mg/dl) no Education Preferences What areas of diabetes would you like to learn about? avoiding high blood sugar, avoiding low bloodsugar, diabetes complications, diet information, exercise information, medications for diabetes, resources on diabetes, testing my blood sugar at home, understanding diabetes, other (comment) [glucometers] Nutrition Information Assessment Topics Healthy Eating - Assessment Competent Being Active - Assessment Needs education Taking Medication - Assessment Competent Problem Solving - Assessment Needs education Reducing Risk - Assessment Needs education Healthy Coping - Assessment Needs education Monitoring - Assessment Needs education DM Goals Flowsheet Row Most Recent Value DM Education Needs Meter Needs meter Blood Glucose Target Range Target ranges per ADA guidelines Medication Oral, Actions, Side effects Problem Solving Hypoglycemia, Hyperglycemia, Sick days, Signs, Symptoms, Treatment Reducing Risks A1C testing, Lipids, Blood pressure, Immunizations Healthy Eating Reviewed meal plan Physical Activity Frequency Discussed exercise importance Healthy Coping Appropriate Motivation Engaged Teaching Method Explanation, Discussion, Handouts Patient Response Verbalized understanding Consult for diabetes education received per stroke protocol. Chart reviewed. Pt was seen at bedsidetoday with family. Permission given for visit. Discussed and taught Mr. Renner about type 2 diabetes self-management, risk factors, and importance of blood glucose control to reduce complications. Target blood glucose readings and A1c goals per ADA were reviewed. Reviewed with patient current A1c 6.85 and discussed its significance. Reviewed the following ADA survival skill concepts with pt: Meal planning: Discussed pts current eating pattern and potential strategies to help improve it. Suggested ???the plate method?? as a potential healthy eating plan and reviewed this with pt. Patientstates he moderates the amount of carbs he eats with each meal. He states that he eats a lot of vegetables with lunch and supper, but does not eat a breakfast typically. Discussed importance of eating 3 regularly timed meals and snacks, maintaining hydration. Safe medication administration: Reviewed pts current medication regimen. Pt taking amaryl, jardiance, and metformin . Encouraged pt to take medications as prescribed and contact provider or pharmacist if they are experiencing side effects. Monitoring (timing and technique): Encouraged pt to monitor blood sugar at home 1-2 times per day and to call PCP if blood sugar is trending high. Discussed benefits of SMBG/CGMS to help guide pt andprovider decision making. Encouraged to keep record of blood glucose readings to take to follow up appointment with PCP. Meter request sent to MD as patient does not have a home glucometer but would like to have one. Prevention and treatment of hypoglycemia and hyperglycemia: Signs, symptoms, and treatment of hypoglycemia and hyperglycemia discussed with pt. Reviewed prevention strategies such as consistent eating pattern and taking medications as directed. Pt is able to teach back appropriate treatment of hypoglycemia using the rule of 15s after receiving instruction. Sick day management: Reviewed general sick day guidelines with pt, including drinking plenty of water, keeping simple carbs handy such as jell-o or popsicles, checking blood glucose more often (every2-4 hours or as directed by provider), and if/when ketone testing is appropriate. Encouraged pt to make a sick-day kit at home. Physical activity: Reviewed benefits of physical activity for diabetes management and overall health. Encouraged pt to begin in 10 min increments to build up to recommended 150 minute per week after speaking with doctor about which activities may be right for them. Patient states that he is very phy sically active and sits as little as possible. Follow-up care: Reviewed importance of ongoing follow-up with provider. Reviewed importance of annual physical exams, annual eye exams, regular dental exams, daily foot examination, and encouraged patient to discuss immunization needs with provider. Pt encouraged to attend scheduled appointments. Provided information about outpatient diabetes education classes at [facility]. Provided patient with copy of [facility] Diabetes handout. Patient does not qualify for the follow up stroke class based on the exclusion criteria of MRI negative for acute infarct per MD note. Thank you for this consult. Total time spent reviewing chart, preparing education/materials, providing education at bedside, and coordinating care approx 30 minutes. Electronically signed by: Radha Fernandez RN 12/27/24 15:04 EDT * Dania Chakraborty, ASSEMBLY INSTRUCTIONS WRITER - 12/26/2024 10:31 AM EDT Stroke Consult Note Patient Name: Forrest Renner Age: 69 y.o. Sex: male : 1955 Primary Care Physician: Manjeet Griffin MD Referring Physician: OS MD TIME STROKE TEAM CALLED: 1240 EST TIME PATIENT SEEN: 1300 EST Handedness: right Race: Chief Complaint/Reason for Consultation: Transient visual deficits HPI: Forrest Renner is a 69-year-old male with a PMH significant for HTN, HLD, T2DM, WILL, tobacco abuse who presents to [facility] via EMS transfer from [facility] where he initially presented with transient vision changes and neck pain that began yesterday at 1330. He reports that he had black floaters in the left peripheral visual patino of the right and left eye. He reports neck pain aswell. This morning, he woke with worsening neck pain. While taking a shower, he felt as though a cloud was coming over his vision. This lasted for several minutes prior to resolving. He told his and was taken to the OSH for further evaluation. CT head there was negative for any acute process. OSH CTA H/N with mild atherosclerotic disease and no LVO. He was transferred to [facility] for MRI and higher level of care. On arrival to [facility], BP 139/63. Symptoms have currently improved. NIH 0. Significant tightness noted in his trapezius and neck muscles. Denies any recent injury. He reports that he does look at his tablet with his neck bent over. MRI brain pending, MRI C-spine pending Last Known Normal Date/Time: 1330 EST Review of Systems Constitutional: Negative for chills and fever. HENT: Negative for congestion and trouble swallowing. Eyes: Positive for visual disturbance. Negative for photophobia. Respiratory: Negative for cough and shortness of breath. Cardiovascular: Negative for chest pain and palpitations. Gastrointestinal: Negative for nausea and vomiting. Musculoskeletal: Positive for arthralgias, neck pain and neck stiffness. Neurological: Negative for syncope, speech difficulty, weakness, light- headedness, numbness and headaches. Past Medical History: Diagnosis Date Diabetes mellitus Hyperlipidemia Past Surgical History: Procedure Laterality Date CARDIAC CATHETERIZATION Left 05/30/2023 Procedure: Cardiac Catheterization/Vascular Study; Surgeon: Julio Khanna III, MD; Location: [facility] CATH INVASIVE LOCATION; Service: Cardiology; Laterality: Left; COLONOSCOPY Family History Problem Relation Age of Onset Hypertension Father Social History Socioeconomic History Marital status: Tobacco Use Smoking status: Every Day Current packs/day: 1.50 Average packs/day: 1.5 packs/day for 46.0 years (69.0 ttl pk-yrs) Types: Cigarettes Passive exposure: Never Smokeless tobacco: Never Vaping Use Vaping status: Never Used Substance and Sexual Activity Alcohol use: Defer Drug use: Not Currently Sexual activity: Yes Partners: Female Allergies Allergen Reactions Penicillins Hives Prior to Admission medications Medication Sig Start Date End Date Taking? Authorizing Provider amLODIPine (NORVASC) 5 MG tablet 02/14/23 Shon Campo MD glimepiride (AMARYL) 2 MG tablet 02/19/23 Shon Campo MD hydroCHLOROthiazide (HYDRODIURIL) 25 MG tablet 02/14/23 Shon Campo MD lisinopril (PRINIVIL,ZESTRIL) 40 MG tablet 02/04/23 Shon Campo MD metFORMIN (GLUCOPHAGE) 1000 MG tablet 02/14/23 Shon Campo MD metoprolol succinate XL (TOPROL-XL) 25 MG 24 hr tablet TAKE 1 TABLET BY MOUTH EVERY NIGHT 05/20/24 Meka Mishra APRN pravastatin (PRAVACHOL) 80 MG tablet 02/04/23 Shon Campo MD Temp: [97.4 ??F (36.3 ??C)] 97.4 ??F (36.3 ??C) Heart Rate: [52] 52 Resp: [18] 18 BP: (139)/(63) 139/63 Neurological Exam Mental Status Alert. Oriented to person, place, time and situation. Oriented to person, place, and time. Speech is normal. Language is fluent with no aphasia. Cranial Nerves CN II: Visual patino full to confrontation. CN III, IV, : Extraocular movements intact bilaterally. Normal lids and orbits bilaterally. Pupils equal round and reactive to light bilaterally. CN V: Facial sensation is normal. CN VII: Full and symmetric facial movement. CN IX, X: Palate elevates symmetrically CN XI: Shoulder shrug strength is normal. CN XII: Tongue midline without atrophy or fasciculations. Motor No pronator drift. Sensory Light touch is normal in upper and lower extremities. Coordination Right: Czidij-cy-nbcb normal. Rapid alternating movement normal. Hgyi-yo-chzs normal.Left: Gaqtvk-ca-voif normal. Rapid alternating movement normal. Fiiq-sr-cpkv normal. Gait Not observed. Physical Exam Constitutional: General: He is not in acute distress. HENT: Head: Normocephalic and atraumatic. Eyes: General: Lids are normal. Extraocular Movements: Extraocular movements intact. Pupils: Pupils are equal, round, and reactive to light. Neck: Comments: Neck tightness/tenderness Pulmonary: Effort: Pulmonary effort is normal. No respiratory distress. Musculoskeletal: General: Normal range of motion. Cervical back: Tenderness present. Skin: General: Skin is warm and dry. Capillary Refill: Capillary refill takes less than 2 seconds. Neurological: General: No focal deficit present. Mental Status: He is alert and oriented to person, place, and time. Mental status is at baseline. Psychiatric: Mood and Affect: Mood normal. Speech: Speech normal. Behavior: Behavior normal. Acute Stroke Data Thrombolytic Inclusion / Exclusion Criteria Time:1300 Person Administering Scale: Dania Chakraborty APRN YES NO INCLUSION CRITERIA CLASS I [] [x] Suspected diagnosis of acute ischemic stroke with measureable neurological deficit. Low NIHSS with disabling stroke symptoms. [] [x] Onset of stroke symptoms < 3 hours before beginning treatment >/ 18 years old Stroke symptom onset = time patient was last seen well or without symptoms (LKW) [] [x] Onset of symptoms between 3-4.5 hours: >/= 80 years old (safe Class IIa) with history of both diabetes and prior CVA (reasonable Class IIb) AND NIHSS </= 25 *If not eligible for IV Thrombolytic consider neuro intervention for LKW within 24 hours YES NO EXCLUSION CRITERIA (CONTRAINDICATIONS) CLASS III EVIDENCE HARM [] [] Blood pressure >185/110 medically refractory to IV medications [] [] Active bleeding at a non-compressible site [] [] Active intracranial hemorrhage (ICH) [] [] Symptoms suggestive of subarachnoid hemorrhage (SAH) [] [] GI bleed within 21 days [] [] Ischemic stroke within 3 months [] [] Severe head trauma within 3 months [] [] Intracranial or intraspinal surgery within 3 months [] [] Current GI malignancy [] [] Intracranial neoplasm [] [] Infective endocarditis [] [] Aortic arch dissection [] [] Active coagulopathy with INR >1.7, platelets <100,000, PTT > 40 sec, PT > 15 sec *For warfarin, administration can begin before blood tests resulted. Discontinue for above values. [] [] Treatment dose* of LMWH (Lovenox) in last 24 hours *prophylactic dosages are not a contraindication [] [] Concurrent use of antiplatelet agents' glycoprotein inhibitors IIb/IIIa (Integrilin, etc.) [] [] Thrombin or factor Xa inhibitors (Eliquis, Xarelto, Arixtra) taken in last 48 hours YES NO CLASS II: AIS WITH THE FOLLOWING CONDITIONS - TREATMENT RISKS SHOULD BE WEIGHED AGAINST POSSIBLE BENEFITS. [] [] Major trauma in last 14 days, recent major surgery in last 14 days, intracranial arterial dissection, giant unruptured and unsecured intracranial aneurysm, pericarditis [] [] The risks and benefits have been discussed with the patient or family related to the administration of IV thrombolytic therapy for stroke symptoms. [] [] I have discussed and reviewed the patient's case and imaging with the attending prior to IV thrombolytic therapy. TIME Time IV thrombolytic administered Hospital Meds: Scheduled- [START ON 12/27/2024] aspirin, 81 mg, Oral, Daily Or [START ON 12/27/2024] aspirin, 300 mg, Rectal, Daily atorvastatin, 80 mg, Oral, Nightly clopidogrel, 300 mg, Oral, Once And [START ON 12/27/2024] clopidogrel, 75 mg, Oral, Daily sodium chloride, 10 mL, Intravenous, Q12H Infusions- PRNs- sodium chloride sodium chloride Functional Status Prior to Current Stroke/[place] Score: 0 NIH Stroke Scale Time:1300 Person Administering Scale: Dania Chakraborty, TARIQ 1a. Level of Consciousness: 0-->Alert, keenly responsive 1b. LOC Questions: 0-->Answers both questions correctly 1c. LOC Commands: 0-->Performs both tasks correctly 2. Best Gaze: 0-->Normal 3. Visual: 0-->No visual loss 4. Facial Palsy: 0-->Normal symmetrical movements 5a. Motor Arm, Left: 0-->No drift, limb holds 90 (or 45) degrees for full 10 secs 5b. Motor Arm, Right: 0-->No drift, limb holds 90 (or 45) degrees for full 10 secs 6a. Motor Leg, Left: 0-->No drift, leg holds 30 degree position for full 5 secs 6b. Motor Leg, Right: 0-->No drift, leg holds 30 degree position for full 5 secs 7. Limb Ataxia: 0-->Absent 8. Sensory: 0-->Normal, no sensory loss 9. Best Language: 0-->No aphasia, normal 10. Dysarthria: 0-->Normal 11. Extinction and Inattention (formerly Neglect): 0-->No abnormality Total (NIH Stroke Scale): 0 Results Reviewed: I have personally reviewed current lab, radiology, and data OSH CT head with no acute findings OSH CTA H/N with mild atherosclerotic disease and no LVO or dissection per OSH MD Results for orders placed in visit on 04/30/23 Adult Stress Echo W/ Cont or Stress Agent if Necessary Per Protocol 05/08/2023 10:13 AM Interpretation Summary Abnormal stress echo with echocardiographic evidence for myocardial ischemia. The following left ventricular wall segments are hypokinetic: basal inferoseptal, basal inferior and basal inferoseptal. Assessment/Plan: 69-year-old male with a PMH significant for HTN, HLD, T2DM, WILL, tobacco abuse who presents to [facility] via EMS transfer from [facility] where he initially presented with transient vision changes and neck pain that began yesterday at 1330.He reports that he had black floaters in the left peripheral visual patino of the right and left eye.This morning, he woke with worsening neck pain. While taking a shower, he felt as though a cloud was coming over his vision. This lasted for several minutes prior to resolving. He taken to the OSH for further evaluation. CT head there was negative for any acute process. OSH CTA H/N with mild atherosclerotic disease and no LVO. He was not a candidate for TNK due to LKW. He was not a candidate for neurointervention as no LVO was noticed on advanced imaging. He was transferred to [facility] for MRI and higher level of care. Antiplatelet SERVICE LIAISON REPRESENTATIVE: None Anticoagulant SERVICE LIAISON REPRESENTATIVE: None #Transient vision changes #Neck pain #Multiple vascular risk factors (HTN, HLD, T2DM, WILL, tobacco use) - Possible TIA, stroke, or peripheral in etiology - MRI brain pending - MRI C-spine pending - TTE pending - Aspirin 325 mg daily given at the OSH. Continue aspirin 81 mg in the a.m. - Plavix 300 mg x 1 followed by 75 mg daily - Atorvastatin 80 mg daily - Lipid panel, hemoglobin A1c in the a.m. - SBP goals <200. DBP<110. Further management per primary team. - Activity as tolerated - Smoking cessation counseling - Neck pain/tightness; baclofen 10 mg twice daily, K-pad to affected area as needed - N.p.o. - PT/OT/MINGLE OPERATOR - Plan discussed with Dr. Valle [facility] , the patient, his , and nursing staff. Stroke neurology will continue to follow. Please call with any questions or concerns. Dania Chakraborty APRN, AGACNP- December 26, 2024 10:31 EDT documented in this encounter Nursing Notes * Amber Oquendo, PT - 12/27/2024 8:13 AM EDT Goal Outcome Evaluation: Plan of Care Reviewed With: patient Progress: no change Outcome Evaluation: PT initial eval completed. Pt presents at or near his functional baseline with appropriate strength, good stability, and coordination/sensation intact. Ambulation of 400' with SBAand no AD was well tolerated. No further IPPT needs at this time, PT signing off. Education provided on seeking out OPPT if neck pain continues to persist. Rec d/c home when medically appropriate. Anticipated Discharge Disposition (PT): home * Lorenzo Mas OT - 12/27/2024 7:40 AM EDT Goal Outcome Evaluation: Plan of Care Reviewed With: patient Progress: no change Outcome Evaluation: Pt presents at baseline for ADL completion with symmetrical BUE strength and coordination/sensation intact. Visual-perceptual deficits largely resolved, WFL for safe navigation and completin of ADLs. OT signing off, please reconsult if needed. Rec d/c to home when medically appropriate. Anticipated Discharge Disposition (OT): home * Natali Rosen RN - 12/26/2024 6:41 PM EDT Pt A&Ox4, RA, Sinus Clay on tele, NIH=0, c/o pain 5/10 in neck and shoulders, heat applied. Spouse at bedside. MRI screening sheet faxed. ECHO complete, pending. NS infusing at 50mL/hr. Up ad antonio as long as spouse is present. Per MINGLE OPERATOR, diet can be advanced if pt does not tolerate current one. * Lillian Odom MA,CCC-MINGLE OPERATOR - 12/26/2024 3:09 PM EDT Goal Outcome Evaluation: Plan of Care Reviewed With: patient, spouse Anticipated Discharge Disposition (MINGLE OPERATOR): home with assist MINGLE OPERATOR Diagnosis: functional speech/language skills, functional cognitive- linguistic skills (12/26/24 1412) MINGLE OPERATOR Swallowing Diagnosis: swallow WFL/no suspected pharyngeal impairment (12/26/24 1412) documented in this encounter Miscellaneous Notes * Case Management/Social Work - Soo Maxwell RN - 12/27/2024 1:44 PM EDT Continued Stay Note Kim Patient Name: Forrest Renner Today's Date: 12/27/2024 Admit Date: 12/26/2024 Plan: IDP Discharge Plan Row Name 12/27/24 1342 Plan Plan IDP Patient/Family in Agreement with Plan yes Plan Comments Spoke with patient and spouse at bedside for IDP. They live in [facility] [facility] in house with basement that pt doesnt have to use with step daughter and adopted son. IADL. CPAP. No current therapy. Current with PCP. Insurance verified with scripts filled at [facility]. Plan is home with spouseto transport. CM will cont to follow Final Discharge Disposition Code 01 - home or self-care Discharge Codes No documentation. Expected Discharge Date and Time Expected Discharge Date Expected Discharge Time Dec 28, 2024 Soo Maxwell RN * Therapy Evaluation - Amber Oquendo, PT - 12/27/2024 8:13 AM EDT Images from the original note were not included. Patient Name: Forrest Renner : 1955 Today's Date: 12/27/2024 Admit Date: 12/26/2024 Visit Dx: No diagnosis found. Patient Active Problem List Diagnosis Bradycardia, sinus Chronic chest pain with low to moderate risk for CAD SOB (shortness of breath) WILL (obstructive sleep apnea) Chronic chest pain with high risk for CAD Abnormal stress test Vision changes Past Medical History: Diagnosis Date Chronic kidney disease Diabetes mellitus Hyperlipidemia Sleep apnea Past Surgical History: Procedure Laterality Date CARDIAC CATHETERIZATION Left 05/30/2023 Procedure: Cardiac Catheterization/Vascular Study; Surgeon: Julio Khanna III, MD; Location: [facility] INVASIVE LOCATION; Service: Cardiology; Laterality: Left; COLONOSCOPY General Information Row Name 12/27/24 0834 Physical Therapy Time and Intention Document Type discharge evaluation/summary -AB Mode of Treatment physical therapy -AB Row Name 12/27/2434 General Information Patient Profile Reviewed yes -AB Prior Level of Function independent:;all household mobility;community mobility;transfer;gait;bed mobility;ADL's Denied falls or AD use. -AB Existing Precautions/Restrictions fall -AB Barriers to Rehab none identified -AB Row Name 12/27/2434 Living Environment Current Living Arrangements home -AB People in Home spouse -AB Row Name 12/27/2434 Home Main Entrance Number of Stairs, Main Entrance one -AB Stair Railings, Main Entrance none -AB Row Name 12/27/2434 Stairs Within Home, Primary Stairs, Within Home, Primary all needs met on main level -AB Row Name 12/27/2434 Cognition Orientation Status (Cognition) oriented x 4 -AB Row Name 12/27/2434 Safety Issues/Impairments Affecting Functional Mobility Impairments Affecting Function (Mobility) pain -AB User Blair (r) = Recorded By, (t) = Taken By, (c) = Cosigned By Initials Name Provider Type AB Amber Oquendo, PT Physical Therapist Mobility Row Name 12/27/24835 Bed Mobility Comment, (Bed Mobility) received and left UIC -AB Row Name 12/27/24835 Transfers Comment, (Transfers) Cues for hand placement and sequencing. Good safety awareness demonstrated. -AB Row Name 12/27/24835 Sit-Stand Transfer Sit-Stand [place] (Transfers) standby assist;1 person assist -AB Row Name 12/27/24835 Gait/Stairs (Locomotion) [place] Level (Gait) standby assist;1 person assist -AB Patient was able to Ambulate yes -AB Distance in Feet (Gait) 400 -AB Bilateral Gait Deviations forward flexed posture -AB [place] Level (Stairs) not tested -AB Comment, (Gait/Stairs) Pt ambulated with step through gait pattern at an appropriate pace. Good stability and safety awareness demonstrated. Pt completed single leg stance and marching in place demonstrating adequate stability and strength to navigate 1 step to enter home. -AB User Blair (r) = Recorded By, (t) = Taken By, (c) = Cosigned By Initials Name Provider Type AB Amber Oquendo, PT Physical Therapist Obj/Interventions Row Name 12/27/24 08 Range of Motion Comprehensive General Range of Motion bilateral lower extremity ROM WNL -AB Row Name 12/27/24 08 Strength Comprehensive (MMT) General Manual Muscle Testing (MMT) Assessment no strength deficits identified -AB Comment, General Manual Muscle Testing (MMT) Assessment BLE grossly 5/5 -AB Row Name 12/27/24 08 Motor Skills Motor Skills coordination -AB Coordination bilateral;upper extremity;WNL -AB Row Name 12/27/24 0839 Balance Balance Assessment sitting static balance;sitting dynamic balance;standing static balance;standing dynamic balance -AB Static Sitting Balance independent -AB Dynamic Sitting Balance independent -AB Position, Sitting Balance unsupported;sitting in chair -AB Static Standing Balance standby assist -AB Dynamic Standing Balance standby assist -AB Position/Device Used, Standing Balance unsupported -AB Balance Interventions sitting;standing;sit to stand;static;dynamic;occupation based/functional task;single limb stance;narrowed base of support;moderate challenge -AB Comment, Balance No LOB. -AB Row Name 12/27/24838 Sensory Assessment (Somatosensory) Sensory Assessment (Somatosensory) LE sensation intact -AB User Blair (r) = Recorded By, (t) = Taken By, (c) = Cosigned By Initials Name Provider Type AB Amber Oquendo, PT Physical Therapist Goals/Plan No documentation. Clinical Impression Row Name 12/27/24838 Pain Pretreatment Pain Rating 3/10 -AB Posttreatment Pain Rating 3/10 -AB Pain Location neck -AB Pain Side/Orientation bilateral;generalized -AB Pain Management Interventions activity modification encouraged;exercise or physical activity utilized;positioning techniques utilized -AB Response to Pain Interventions activity participation with tolerable pain -AB Row Name 12/27/24838 Plan of Care Review Plan of Care Reviewed With patient -AB Progress no change -AB Outcome Evaluation PT initial eval completed. Pt presents at or near his functional baseline with appropriate strength, good stability, and coordination/sensation intact. Ambulation of 400' with SBA and no AD was well tolerated. No further IPPT needs at this time, PT signing off. Education providedon seeking out OPPT if neck pain continues to persist. Rec d/c home when medically appropriate. -AB Row Name 12/27/24838 Therapy Assessment/Plan (PT) Criteria for Skilled Interventions Met (PT) no;no problems identified which require skilled intervention -AB Therapy Frequency (PT) evaluation only -AB Row Name 12/27/24 0839 Vital Signs Pre Systolic BP Rehab 137 -AB Pre Treatment Diastolic BP 70 -AB Post Systolic BP Rehab 161 -AB Post Treatment Diastolic BP 63 -AB Pretreatment Heart Rate (beats/min) 64 -AB Posttreatment Heart Rate (beats/min) 65 -AB Pre SpO2 (%) 92 -AB O2 Delivery Pre Treatment room air -AB O2 Delivery Intra Treatment room air -AB Post SpO2 (%) 92 -AB O2 Delivery Post Treatment room air -AB Pre Patient Position Sitting -AB Intra Patient Position Standing -AB Post Patient Position Sitting -AB Row Name 12/27/24 0839 Positioning and Restraints Pre-Treatment Position sitting in chair/recliner -AB Post Treatment Position chair -AB In Chair notified nsg;reclined;sitting;call light within reach;encouraged to call for assist;exit alarm on;legs elevated;waffle cushion -AB User Blair (r) = Recorded By, (t) = Taken By, (c) = Cosigned By Initials Name Provider Type Amber Norton, PT Physical Therapist Outcome Measures Row Name 12/27/24 0843 How much help from another person do you currently need... Turning from your back to your side while in flat bed without using bedrails? 4 -AB Moving from lying on back to sitting on the side of a flat bed without bedrails? 4 -AB Moving to and from a bed to a chair (including a wheelchair)? 3 -AB Standing up from a chair using your arms (e.g., wheelchair, bedside chair)? 3 -AB Climbing 3-5 steps with a railing? 3 -AB To walk in hospital room? 3 -AB AM-PAC 6 Clicks Score (PT) 20 -AB Highest Level of Mobility Goal Walk 10 Steps or More-6 -AB Row Name 12/27/24 0843 Modified [place] Scale Pre-Stroke Modified [place] Scale 6 - Unable to determine (UTD) from the medical record documentation -AB Modified [place] Scale 1 - No significant disability despite symptoms. Able to carry out all usual duties and activities. -AB Row Name 12/27/24 0843 Functional Assessment Outcome Measure Options AM-PAC 6 Clicks Basic Mobility (PT);Modified Su -AB User Blair (r) = Recorded By, (t) = Taken By, (c) = Cosigned By Initials Name Provider Type Amber Norton, PT Physical Therapist Physical Therapy Education Title: PT OT MINGLE OPERATOR Therapies (In Progress) Topic: Physical Therapy (In Progress) Point: Mobility training (Done) Learning Progress Summary Patient Acceptance, E,D, VU,DU by at 12/27/202443 Point: Home exercise program (Not Started) Learner Progress: Not documented in this visit. Point: Body mechanics (Done) Learning Progress Summary Patient Acceptance, E,D, VU,DU by at 12/27/202443 Point: Precautions (Done) Learning Progress Summary Patient Acceptance, E,D, VU,DU by at 12/27/2024 0843 User Blair Initials Effective Dates Name Provider Type Discipline 02/21/22 - Amber Oquendo, PT Physical Therapist PT PT Recommendation and Plan Progress: no change Outcome Evaluation: PT initial eval completed. Pt presents at or near his functional baseline with appropriate strength, good stability, and coordination/sensation intact. Ambulation of 400' with SBAand no AD was well tolerated. No further IPPT needs at this time, PT signing off. Education provided on seeking out OPPT if neck pain continues to persist. Rec d/c home when medically appropriate. Time Calculation: PT Evaluation Complexity History, PT Evaluation Complexity: 1-2 personal factors and/or comorbidities Examination of Body Systems (PT Eval Complexity): total of 3 or more elements Clinical Presentation (PT Evaluation Complexity): stable Clinical Decision Making (PT Evaluation Complexity): low complexity Overall Complexity (PT Evaluation Complexity): low complexity PT Charges Row Name 12/27/24 0843 Time Calculation Start Time 0813 -AB PT Received On 12/27/24 -AB Untimed Charges PT Eval/Re-eval Minutes 48 -AB Total Minutes Untimed Charges Total Minutes 48 -AB Total Minutes 48 -AB User Blair (r) = Recorded By, (t) = Taken By, (c) = Cosigned By Initials Name Provider Type AB Amber Oquendo, PT Physical Therapist Therapy Charges for Today Code Description Service Date Service Provider Modifiers Qty [id number] HC PT EVAL LOW COMPLEXITY 4 12/27/2024 Amber Oquendo, PT GP 1 PT G-Codes Outcome Measure Options: AM-PAC 6 Clicks Basic Mobility (PT), Modified [place] AM-PAC 6 Clicks Score (PT): 20 Modified [place] Scale: 1 - No significant disability despite symptoms. Able to carry out all usual duties and activities. PT Discharge Summary Anticipated Discharge Disposition (PT): home Amber Oquendo PT 12/27/2024 * Therapy Evaluation - Lillian Odom MA,CCC-MINGLE OPERATOR - 12/26/2024 3:14 PM EDT Images from the original note were not included. Acute Care - Speech Language Pathology Swallow Initial Evaluation Psychiatric Clinical Swallow Evaluation Cognitive-Communication Evaluation Patient Name: Forrest Renner : 1955 Today's Date: 12/26/2024 Admit Date: 12/26/2024 Visit Dx: No diagnosis found. Patient Active Problem List Diagnosis Bradycardia, sinus Chronic chest pain with low to moderate risk for CAD SOB (shortness of breath) WILL (obstructive sleep apnea) Chronic chest pain with high risk for CAD Abnormal stress test Vision changes Past Medical History: Diagnosis Date Chronic kidney disease Diabetes mellitus Hyperlipidemia Sleep apnea Past Surgical History: Procedure Laterality Date CARDIAC CATHETERIZATION Left 05/30/2023 Procedure: Cardiac Catheterization/Vascular Study; Surgeon: Julio Khanna III, MD; Location: [facility] INVASIVE LOCATION; Service: Cardiology; Laterality: Left; COLONOSCOPY MINGLE OPERATOR Recommendation and Plan MINGLE OPERATOR Swallowing Diagnosis: swallow WFL/no suspected pharyngeal impairment (12/26/241411) MINGLE OPERATOR Diet Recommendation: soft to chew textures, chopped, thin liquids, other (see comments) (Soft, chopped recommended because of edentulous. If patient doesn't like this diet, OK to upgrade to regular.) (12/26/241411) Recommended Precautions and Strategies: upright posture during/after eating, small bites of food and sips of liquid, general aspiration precautions (12/26/241411) MINGLE OPERATOR Rec. for Method of Medication Administration: meds whole, with thin liquids, as tolerated (12/26/241411) Monitor for Signs of Aspiration: notify MINGLE OPERATOR if any concerns (12/26/241411) Recommended Diagnostics: No further MINGLE OPERATOR services recommended (12/26/241411) Swallow Criteria for Skilled Therapeutic Interventions Met: no problems identified which require skilled intervention (12/26/241411) Anticipated Discharge Disposition (MINGLE OPERATOR): home with assist (12/26/241411) Therapy Frequency (Swallow): evaluation only (12/26/241411) Oral Care Recommendations: Oral Care BID/PRN, Toothbrush (12/26/241411) SWALLOW EVALUATION (Last 72 Hours) MINGLE OPERATOR Adult Swallow Evaluation Row Name 12/26/241411 General Information Current Method of Nutrition NPO -MD Prior Level of Function-Communication WFL -MD Prior Level of Function-Swallowing no diet consistency restrictions -MD Patient's Goals for Discharge return to PO diet -MD General Eating/Swallowing Observations Respiratory Support Currently in Use room air -MD Eating/Swallowing Skills self-fed;fed by MINGLE OPERATOR;appropriate self-feeding skills observed -MD Positioning During Eating upright in chair -MD Utensils Used spoon;cup;straw -MD Consistencies Trialed regular textures;pureed;ice chips;thin liquids - Respiratory Respiratory Status WFL;during swallowing/eating -MD Clinical Swallow Eval Oral Prep Phase WFL -MD Oral Transit WFL -MD Oral Residue WFL -MD Pharyngeal Phase WFL -MD Esophageal Phase unremarkable -MD Oral Prep Concerns Oral Prep Concerns increased prep time -MD Prolonged Mastication regular consistencies;other (see comments) secondary to edentulous but able to clear oral cavity -MD Swallowing Quality of Life Assessment Education and counseling provided Signs of aspiration -MD MINGLE OPERATOR Evaluation Clinical Impression MINGLE OPERATOR Swallowing Diagnosis swallow WFL/no suspected pharyngeal impairment - Functional Impact no impact on function -MD Swallow Criteria for Skilled Therapeutic Interventions Met no problems identified which require skilled intervention -MD Recommendations Therapy Frequency (Swallow) evaluation only -MD MINGLE OPERATOR Diet Recommendation soft to chew textures;chopped;thin liquids;other (see comments) Soft, chopped recommended because of edentulous. If patient doesn't like this diet, OK to upgrade to regular. -MD Recommended Diagnostics No further MINGLE OPERATOR services recommended -MD Recommended Precautions and Strategies upright posture during/after eating;small bites of food and sips of liquid;general aspiration precautions -MD Oral Care Recommendations Oral Care BID/PRN;Toothbrush - MINGLE OPERATOR Rec. for Method of Medication Administration meds whole;with thin liquids;as tolerated - Monitor for Signs of Aspiration notify MINGLE OPERATOR if any concerns -MD User Blair (r) = Recorded By, (t) = Taken By, (c) = Cosigned By Initials Name Effective Dates Lillian Bangura MA,CCC-MINGLE OPERATOR 11/04/24 - EDUCATION The patient has been educated in the following areas: Dysphagia (Swallowing Impairment) Oral Care/Hydration. Time Calculation: Time Calculation- MINGLE OPERATOR Row Name 12/26/24 1509 Time Calculation- MINGLE OPERATOR MINGLE OPERATOR Start Time 1412 - MINGLE OPERATOR Received On 12/26/24 - Untimed Charges MINGLE OPERATOR Eval/Re-eval [facility] Speech and Production w/ Language - 45323;[facility] Oral Pharyng Swallow - 15277 - 34624-XZ Eval Speech and Production w/ Language Minutes 53 -MD [id number]-DL Eval Oral Pharyng Swallow Minutes 54 -MD Total Minutes Untimed Charges Total Minutes 107 -MD Total Minutes 107 -MD User Blair (r) = Recorded By, (t) = Taken By, (c) = Cosigned By Initials Name Provider Type Lillian Bangura MA,CCC-MINGLE OPERATOR Speech and Language Pathologist Therapy Charges for Today Code Description Service Date Service Provider Modifiers Qty 37290030235 HC ST EVAL ORAL PHARYNG SWALLOW 4 12/26/2024 Lillian Odom MA,CCC- MINGLE OPERATOR GN [id number] EVAL SPEECH AND PROD W LANG 4 12/26/2024 Lillian Odom MA,CCC- MINGLE OPERATOR GN 1 Lillian Odom MA,CCC-MINGLE OPERATOR 12/26/2024 and Acute Care - Speech Language Pathology Initial Evaluation Psychiatric Patient Name: Forrest Renner : 1955 Today's Date: 12/26/2024 Admit Date: 12/26/2024 Visit Dx: No diagnosis found. Patient Active Problem List Diagnosis Bradycardia, sinus Chronic chest pain with low to moderate risk for CAD SOB (shortness of breath) WILL (obstructive sleep apnea) Chronic chest pain with high risk for CAD Abnormal stress test Vision changes Past Medical History: Diagnosis Date Chronic kidney disease Diabetes mellitus Hyperlipidemia Sleep apnea Past Surgical History: Procedure Laterality Date CARDIAC CATHETERIZATION Left 05/30/2023 Procedure: Cardiac Catheterization/Vascular Study; Surgeon: Julio Khanna III, MD; Location: [facility]; Service: Cardiology; Laterality: Left; COLONOSCOPY MINGLE OPERATOR Recommendation and Plan MINGLE OPERATOR Diagnosis: functional speech/language skills, functional cognitive- linguistic skills (12/26/241411) Monitor for Signs of Aspiration: notify MINGLE OPERATOR if any concerns (12/26/241411) Swallow Criteria for Skilled Therapeutic Interventions Met: no problems identified which require skilled intervention (12/26/241411) [facility] Criteria for Skilled Therapy Interventions Met: no problems identified which require skilled intervention (12/26/241411) Anticipated Discharge Disposition (MINGLE OPERATOR): home with assist (12/26/241411) Therapy Frequency (Swallow): evaluation only (12/26/241411) Therapy Frequency (MINGLE OPERATOR SLC): evaluation only (12/26/241411) Oral Care Recommendations: Oral Care BID/PRN, Toothbrush (12/26/241411) MINGLE OPERATOR EVALUATION (Last 72 Hours) MINGLE OPERATOR [facility] Evaluation Row Name 12/26/241411 Communication Assessment/Intervention Document Type evaluation -MD Subjective Information complains of;pain -MD Patient Observations alert;cooperative -MD Patient/Family/Caregiver Comments/Observations at bedside -MD Patient Effort good -MD Comment In collaboration with AW -MD Symptoms Noted During/After Treatment none -MD General Information Patient Profile Reviewed yes -MD Pertinent History Of Current Problem Transient vision changes, neck pain, HTN, HLD, DM2, WILL, tabacco use. MRI pending. OSH CT head negative for any acute process. OSH CTA H/N w/ mild atheroscleroticdisease and no LVO. 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 -MD Prior Level of Function-Communication WFL -MD Plans/Goals Discussed with patient;spouse/S.O.;agreed upon -MD Barriers to Rehab none identified -MD Patient's Goals for Discharge return to all previous roles/activities -MD Family Goals for Discharge family did not state -MD Pain Pretreatment Pain Rating 5/10 -MD Posttreatment Pain Rating 5/10 -MD Pain Location head;neck -MD Pain Management Interventions nursing notified -MD Response to Pain Interventions activity participation with tolerable pain -MD Comprehension Assessment/Intervention Comprehension Assessment/Intervention Auditory Comprehension;Reading Comprehension -MD Auditory Comprehension Assessment/Intervention Auditory Comprehension (Communication) WFL -MD Able to Identify Objects/Pictures (Communication) WFL;pictures of common objects -MD Answers Questions (Communication) WFL;simple;personal;wh questions;yes/no -MD Able to Follow Commands (Communication) WFL;2-step -MD Narrative Discourse WFL;conversational level -MD Successful Auditory Strategies (Communication) repetition;other (see comments) secondary to right sided hearing impairment -MD Reading Comprehension Assessment/Intervention Reading Comprehension (Communication) WFL -MD Scanning (Reading) WFL -MD Single Word Level WFL -MD Phrase Level WFL -MD Paragraph Level WFL -MD Expression Assessment/Intervention Expression Assessment/Intervention graphic expression;verbal expression -MD Verbal Expression Assessment/Intervention Verbal Expression WFL -MD Automatic Speech (Communication) WFL -MD Repetition WFL;words -MD Confrontational Naming WFL -MD Spontaneous/Functional Words WFL;simple -MD Sentence Formulation WFL;simple -MD Conversational Discourse/Fluency WFL -MD Graphic Expression Assessment/Intervention Graphic Expression WFL -MD Graphic Expression to Dictation WFL;words;sentences -MD Functional Correspondence WFL -MD Sentence Formulation WFL;simple -MD Oral Motor Structure and Function Oral Motor Structure and Function WFL -MD Dentition Assessment edentulous, does not have dentures -MD Mucosal Quality dry -MD Oral Musculature and Cranial Nerve Assessment Oral Motor General Assessment lingual impairment -MD Lingual Impairment, Detail. Cranial Nerves IX, XII (Glossopharyngeal and Hypoglossal) other (see comments) deviates to the right but doesn't negatively affect oral stage of swallow or articulation -MD Motor Speech Assessment/Intervention Motor Speech Function WFL -MD Conversational Speech (Communication) WFL -MD Speech intelligibility 90%;in quiet environment;in connected speech;with unfamiliar listener -MD Cursory Voice Assessment/Intervention Quality and Resonance (Voice) WFL -MD Cognitive Assessment Intervention- MINGLE OPERATOR Cognitive Function (Cognition) WFL -MD Orientation Status (Cognition) WFL;person;time;place;situation -MD Memory (Cognitive) WFL;simple;related;delayed;immediate;functional;other (see comments) Required verbal cues for delayed recall x1 -MD Attention (Cognitive) WFL;attention to detail;quiet environment -MD Thought Organization (Cognitive) WFL;concrete convergent -MD Reasoning (Cognitive) WFL;simple -MD Problem Solving (Cognitive) WFL;temporal;simple;multifactorial -MD Functional Math (Cognitive) WFL;word problems;money calculation;simple -MD Executive Function (Cognition) WFL;time management;self-monitoring/correction -MD Pragmatics (Communication) WFL -MD Right Hemisphere Function WFL -MD Cognition, Comment and patient agree that patient is at his PLOF. -MD MINGLE OPERATOR Evaluation Clinical Impressions MINGLE OPERATOR Diagnosis functional speech/language skills;functional cognitive-linguistic skills -MD [facility] Criteria for Skilled Therapy Interventions Met no problems identified which require skilled intervention -MD Functional Impact no impact on function -MD Recommendations Therapy Frequency (MINGLE OPERATOR [facility]) evaluation only -MD Anticipated Discharge Disposition (MINGLE OPERATOR) home with assist -MD User Blair (r) = Recorded By, (t) = Taken By, (c) = Cosigned By Initials Name Effective Dates Lillian Bangura MA,CCC-MINGLE OPERATOR 11/04/24 - EDUCATION The patient has been educated in the following areas: Cognitive Impairment Communication Impairment. Time Calculation: Time Calculation- MINGLE OPERATOR Row Name 12/26/24 1509 Time Calculation- MINGLE OPERATOR MINGLE OPERATOR Start Time 1412 -MD MINGLE OPERATOR Received On 12/26/24 -MD Untimed Charges MINGLE OPERATOR Eval/Re-eval ST Eval Speech and Production w/ Language - 81046;ST Eval Oral Pharyng Swallow - 74756 -MD 17529-MN Eval Speech and Production w/ Language Minutes 53 -[place] 60598-DU Eval Oral Pharyng Swallow Minutes 54 -MD Total Minutes Untimed Charges Total Minutes 107 -MD Total Minutes 107 -MD User Blair (r) = Recorded By, (t) = Taken By, (c) = Cosigned By Initials Name Provider Type Lillian Bangura MA,CCC-MINGLE OPERATOR Speech and Language Pathologist Therapy Charges for Today Code Description Service Date Service Provider Modifiers Qty [id number] HC ST EVAL ORAL PHARYNG SWALLOW 4 12/26/2024 Lillian Odom MA,CCC- MINGLE OPERATOR GN [id number] EVAL SPEECH AND PROD W LANG 4 12/26/2024 Lillian Odom MA,CCC- MINGLE OPERATOR GN 1 Lillian Odom MA,CCC-MINGLE OPERATOR 12/26/2024 documented in this encounter Plan of Treatment Upcoming Encounters Date Type Department Care Team (Late st Contact Info) Description 02/18/2025 11:45 AM EDT Office Visit [facility] [address] [place] [address] Hortencia Nagy MD [address] [place] [address] Scheduled Referrals Name Type Priority Associated Diagnoses Orde r Schedule Ambulatory Referral to Physical Therapy for Evaluation & Treatment Outpatient Referral Routine Cervical spondylosis with radiculopathy Ordered: 12/28/2024 Ambulatory Referral to Cardiology for Other; Positive bubble study on ECHO during stroke evaluation Outpatient Referral Routine PFO (patent foramen ovale) Ordered: 12/28/2024 documented as of this encounter Procedures Procedure Name Priority Date/Time Associated Diagnosis Comments POCT GLUCOSE FINGERSTICK Routine 12/28/2024 12:06 PM EDT CBC WITH AUTO DIFFERENTIAL Urgent 12/28/2024 8:34 AM EDT CBC AND DIFFERENTIAL Urgent 12/28/2024 8:34 AM EDT BASIC METABOLIC PANEL Urgent 12/28/2024 8:34 AM EDT POCT GLUCOSE FINGERSTICK Routine 12/28/2024 8:14 AM EDT POCT GLUCOSE FINGERSTICK Routine 12/27/2024 7:55 PM EDT POCT GLUCOSE FINGERSTICK Routine 12/27/2024 6:02 PM EDT POCT GLUCOSE FINGERSTICK Routine 12/27/2024 11:55 AM EDT POTASSIUM Timed 12/27/2024 10:16 AM EDT CBC (NO DIFF) Urgent 12/27/2024 7:50 AM EDT HEMOGLOBIN A1C Urgent 12/27/2024 7:50 AM EDT LIPID PANEL Urgent 12/27/2024 7:50 AM EDT BASIC METABOLIC PANEL Urgent 12/27/2024 7:50 AM EDT POCT GLUCOSE FINGERSTICK Routine 12/27/2024 7:05 AM EDT MRI CERVICAL SPINE WO CONTRAST Routine 12/27/2024 4:42 AM EDT MRI BRAIN WO CONTRAST Routine 12/27/2024 4:42 AM EDT POCT GLUCOSE FINGERSTICK Routine 12/26/2024 8:03 PM EDT POCT GLUCOSE FINGERSTICK Routine 12/26/2024 4:43 PM EDT ECHO COMPLETE W/ DOPPLER AND COLOR FLOW Routine 12/26/2024 3:57 PM EDT POCT GLUCOSE FINGERSTICK Routine 12/26/2024 12:36 PM EDT SCANNED EKG 12/26/2024 SCANNED - IMAGING 12/26/2024 SCANNED - IMAGING 12/26/2024 SCANNED - IMAGING 12/26/2024 SCANNED - IMAGING 12/26/2024 documented in this encounter Results * (ABNORMAL) POC Glucose Once (12/28/2024 12:06 PM EDT) Pathologist [facility] Glucose 171(H) 70 - 130 mg/dL 12/28/2024 12:07 PM EDT [facility] Blood 12/28/2024 12:0 6 PM EDT 12/28/2024 12:07 PM EDT Kristy Pelayo MD POINT OF CARE TEST ORDERABLES Fi nal Result [facility]
[address] [place] [address], * (ABNORMAL) CBC Auto Differential (12/28/2024 8:34 AM EDT) WBC 8.99 3.40 - 10.80 10*3/mm3 12/28/2024 9:03 AM EDT [facility] RBC 3.90(L) 4.14 - 5.80 10*6/mm3 12/28/2024 9:03 AM EDT [facility] Hemoglobin 13.1 13.0 - 17.7 g/dL 12/28/2024 [facility] Hematocrit 37.5 37.5 - 51.0 % 12/28/2024 9:[facility] MCV 96.2 79.0 - 97.0 fL 12/28/2024 9:03 AM [facility] MCH 33.6(H) 26.6 - 33.0 pg 12/28/2024 9:03 AM [facility] MCHC 34.9 31.5 - 35.7 g/dL 12/28/2024 9:03 AM [facility] RDW 11.7(L) 12.3 - 15.4 % 12/28/2024 9:03 AM [facility] RDW-SD 40.6 37.0 - 54.0 fl 12/28/2024 9:03 AM [facility] MPV 10.4 6.0 - 12.0 fL 12/28/2024 9:03 AM [facility] Platelets 172 140 - 450 10*3/mm3 12/28/2024 9:03 AM [facility] Neutrophil % 71.9 42.7 - 76.0 % 12/28/2024 9:03 AM [facility] Lymphocyte % 15.2(L) 19.6 - 45.3 % 12/28/2024 9:03 AM [facility] Monocyte % 7.5 5.0 - 12.0 % 12/28/2024 9:03 [facility] Eosinophil % 4.2 0.3 - 6.2 % 12/28/2024 9:03 [facility] Basophil % 0.8 0.0 - 1.5 % 12/28/2024 9:03 [facility] Immature Grans % 0.4 0.0 - 0.5 % 12/28/2024 9:03 [facility] Neutrophils, Absolute 6.46 1.70 - 7.00 10*3/mm3 12/28/2024 9:03 AM EDT [facility] Lymphocytes, Absolute 1.37 0.70 - 3.10 10*3/mm3 12/28/2024 9:03 AM EDT [facility] Monocytes, Absolute 0.67 0.10 - 0.90 10*3/mm3 12/28/2024 9:03 AM EDT [facility] Eosinophils, Absolute 0.38 0.00 - 0.40 10*3/mm3 12/28/2024 9:03 AM EDT [facility] Basophils, Absolute 0.07 0.00 - 0.20 10*3/mm3 12/28/2024 9:03 AM EDT [facility] Immature Grans, Absolute 0.04 0.00 - 0.05 10*3/mm3 12/28/2024 9:03 AM EDT [facility] nRBC 0.0 0.0 - 0.2 /100 WBC 12/28/2024 9:03 AM EDT [facility] Blood Venipuncture / Unknown 12/28/2024 8:34 AM EDT 12/28/2024 8:55 AM EDT Marium Dos Santos MD LAB BLOOD ORDERABLES Fin al Result [facility]
[address] [place] [address], * (ABNORMAL) Basic Metabolic Panel (12/28/2024 8:34 AM EDT) Glucose 243(H) 65 - 99 mg/dL 12/28/2024 9:41 AM EDT [facility] BUN 30.9(H) 8.0 - 23.0 mg/dL 12/28/2024 9:41 AM EDT [facility] Creatinine 1.70(H) 0.76 - 1.27 mg/dL 12/28/2024 9:41 AM EDT [facility] Sodium 135(L) 136 - 145 mmol/L 12/28/2024 9:41 AM EDT [facility] Potassium 5.2 3.5 - 5.2 mmol/L 12/28/2024 9:41 AM EDT [facility] Chloride 100 98 - 107 mmol/L 12/28/2024 9:41 AM EDT [facility] CO2 25.0 22.0 - 29.0 mmol/L 12/28/2024 9:41 AM EDT [facility] Calcium 9.2 8.6 - 10.5 mg/dL 12/28/2024 9:41 AM EDT [facility] BUN/Creatinine Ratio 18.2 7.0 - 25.0 12/28/2024 9:41 AM EDT [facility] Anion Gap 10.0 5.0 - 15.0 mmol/L 12/28/2024 9:41 AM EDT [facility] eGFR 43.1(L) >60.0 mL/min/1.7 3 12/28/2024 9:41 AM EDT [facility] Blood Venipuncture / Unknown 12/28/2024 8:34 AM EDT 12/28/2024 8:55 AM EDT [facility] - 12/28/2024 9:41 AM EDT GFR Categories in Chronic Kidney Disease (CKD) GFR Category GFR (mL/min/1.73) Interpretation G1 90 or greater Normal or high (1) G2 60-89 Mild decrease (1) G3a 45-59 Mild to moderate decrease G3b 30-44 Moderate to severe decrease G4 15-29 Severe decrease G5 14 or less Kidney failure (1)In the absence of evidence of kidney disease, neither GFR category G1 or G2 fulfill the criteria for CKD. eGFR calculation 2020 CKD-EPI creatinine equation, which does not include race as a factor us Marium Dos Santos MD LAB BLOOD ORDERABLES Fin al Result [facility]
[address] [place] [address], * (ABNORMAL) POC Glucose Once (12/28/2024 8:14 AM EDT) Glucose 224(H) 70 - 130 mg/dL 12/28/2024 8:15 AM EDT [facility] Blood 12/28/2024 8:14 AM EDT 12/28/2024 8:15 AM EDT Kristy Pelayo MD POINT OF CARE TEST ORDERABLES Fi nal Result [facility]
[address] [place] [address], [place] [phone] * (ABNORMAL) POC Glucose Once (12/27/2024 7:55 PM EDT) Glucose 242(H) 70 - 130 mg/dL 12/27/2024 7:56 PM EDT [facility] Blood 12/27/2024 7:55 PM EDT 12/27/2024 7:56 PM EDT Marium Dos Santos MD POINT OF CARE TEST ORDER PAUL Final Result Performing Organization Address [facility] Co de Phone Number [facility]
[address] [place] [address], [place] [phone] * (ABNORMAL) POC Glucose Once (12/27/2024 6:02 PM EDT) Glucose 291(H) 70 - 130 mg/dL 12/27/2024 6:04 PM EDT [facility] Blood 12/27/2024 6:02 PM EDT 12/27/2024 6:04 PM EDT Marium Dos Santos MD POINT OF CARE TEST ORDER PAUL Final Result Performing Organization Address City/[facility]/ZIP Co de Phone Number [facility]
[address] [place] [address], * (ABNORMAL) POC Glucose Once (12/27/2024 11:55 AM EDT) Pathologist [facility] Glucose 284(H) 70 - 130 mg/dL 12/27/2024 11:56 AM EDT [facility] Blood 12/27/2024 11:5 5 AM EDT 12/27/2024 11:56 AM EDT Marium Dos Santos MD POINT OF CARE TEST ORDER PAUL Final Result Performing Organization Address City/[facility]/ZIP Co de Phone Number [facility]
[address] [place] [address], * Potassium (12/27/2024 10:16 AM EDT) [facility] Potassium 4.9 3.5 - 5.2 mmol/L 12/27/2024 12:14 PM EDT [facility] Comment:Specimen hemolyzed. Result may be falsely elevated. Blood Venipuncture / Unknown 12/27/2024 10:16 AM EDT 12/27/2024 11:18 AM EDT Marium Dos Santos MD LAB BLOOD ORDERABLES Fin al Result [facility]
[address] [place] [address], * (ABNORMAL) CBC (No Diff) (12/27/2024 7:50 AM EDT) Pathologist [facility] WBC 7.20 3.40 - 10.80 10*3/mm3 12/27/2024 8:35 AM EDT [facility] RBC 3.83(L) 4.14 - 5.80 10*6/mm3 12/27/2024 8:35 AM EDT [facility] Hemoglobin 12.5(L) 13.0 - 17.7 g/dL 12/27/2024 8:35 AM EDT [facility] Hematocrit 37.0(L) 37.5 - 51.0 % 12/27/2024 8:35 AM EDT [facility] MCV 96.6 79.0 - 97.0 fL 12/27/2024 8:35 AM EDT [facility] MCH 32.6 26.6 - 33.0 pg 12/27/2024 8:35 AM EDT [facility] MCHC 33.8 31.5 - 35.7 g/dL 12/27/2024 8:35 AM EDT [facility] RDW 11.7(L) 12.3 - 15.4 % 12/27/2024 8:35 AM EDT [facility] RDW-SD 41.2 37.0 - 54.0 fl 12/27/2024 8:35 AM EDT [facility] MPV 10.4 6.0 - 12.0 fL 12/27/2024 8:35 AM EDT [facility] Platelets 155 140 - 450 10*3/mm3 12/27/2024 8:35 AM EDT [facility] Blood Venipuncture / Unknown 12/27/2024 7:50 AM EDT 12/27/2024 8:01 AM EDT us Lynn Valle DO LAB BLOOD ORDERABLES Final Result [facility]
[address] [place] [address], * (ABNORMAL) Basic Metabolic Panel (12/27/2024 7:50 AM EDT) Glucose 167(H) 65 - 99 mg/dL 12/27/2024 8:36 AM EDT [facility] BUN 23.5(H) 8.0 - 23.0 mg/dL 12/27/2024 8:36 AM EDT [facility] Creatinine 1.47(H) 0.76 - 1.27 mg/dL 12/27/2024 8:36 AM EDT [facility] Sodium 141 136 - 145 mmol/L 12/27/2024 8:36 AM EDT [facility] Potassium 5.5(H) 3.5 - 5.2 mmol/L 12/27/2024 8:36 AM EDT [facility] Chloride 104 98 - 107 mmol/L 12/27/2024 8:36 AM EDT [facility] CO2 28.0 22.0 - 29.0 mmol/L 12/27/2024 8:36 AM EDT [facility] Calcium 9.3 8.6 - 10.5 mg/dL 12/27/2024 8:36 AM EDT [facility] BUN/Creatinine Ratio 16.0 7.0 - 25.0 12/27/2024 8:36 AM EDT [facility] Anion Gap 9.0 5.0 - 15.0 mmol/L 12/27/2024 8:36 AM EDT [facility] eGFR 51.3(L) >60.0 mL/min/1.7 3 12/27/2024 8:36 AM T [facility] Blood Venipuncture / Unknown 12/27/2024 7:50 AM EDT 12/27/2024 8:00 AM EDT [facility] - 12/27/2024 8:36 AM EDT GFR Categories in Chronic Kidney Disease (CKD) GFR Category GFR (mL/min/1.73) Interpretation G1 90 or greater Normal or high (1) G2 60-89 Mild decrease (1) G3a 45-59 Mild to moderate decrease G3b 30-44 Moderate to severe decrease G4 15-29 Severe decrease G5 14 or less Kidney failure (1)In the absence of evidence of kidney disease, neither GFR category G1 or G2 fulfill the criteria for CKD. eGFR calculation 2020 CKD-EPI creatinine equation, which does not include race as a factor us Lynn Valle DO LAB BLOOD ORDERABLES Final Result [facility]
[address] [place] [address], * (ABNORMAL) Lipid Panel (12/27/2024 7:50 AM EDT) Total Cholesterol 144 0 - 200 mg/dL 12/27/2024 8:36 AM EDT [facility] Triglycerides 270(H) 0 - 150 mg/dL 12/27/2024 8:36 AM EDT [facility] HDL Cholesterol 29(L) 40 - 60 mg/dL 12/27/2024 8:36 AM EDT [facility] LDL Cholesterol 71 0 - 100 mg/dL 12/27/2024 8:36 AM EDT [facility] VLDL Cholesterol 44(H) 5 - 40 mg/dL 12/27/2024 8:36 AM EDT [facility] LDL/HDL Ratio 2.10 12/27/2024 8:36 AM EDT [facility] Blood Venipuncture / Unknown 12/27/2024 7:50 AM EDT 12/27/2024 8:00 AM EDT [facility] - 12/27/2024 8:36 AM EDT Cholesterol Reference Ranges ([place].S. Department of Health and Human Services ATP III Classifications) Desirable <200 mg/dL Borderline High 200-239 mg/dL High Risk >240 mg/dL Triglyceride Reference Ranges (U.S. Department of Health and Human Services ATP III Classifications) Normal <150 mg/dL Borderline High 150-199 mg/dL High 200-499 mg/dL Very High >500 mg/dL HDL Reference Ranges (U.S. Department of Health and Human Services ATP III Classifications) Low <40 mg/dl (major risk factor for CHD) High >60 mg/dl ('negative' risk factor for CHD) LDL Reference Ranges (U.S. Department of Health and Human Services ATP III Classifications) Optimal <100 mg/dL Near Optimal 100-129 mg/dL Borderline High 130-159 mg/dL High 160-189 mg/dL Very High >189 mg/dL LDL is calculated using the NIH LDL-C calculation. Dania Chakraborty ASSEMBLY INSTRUCTIONS WRITER LAB BLOOD ORDERABLES Fin al Result Performing Organization Address City/[facility] Co de Phone Number [facility]
[address] [place] [address], * (ABNORMAL) Hemoglobin A1c (12/27/2024 7:50 AM EDT) Hemoglobin A1C 6.85(H) 4.80 - 5.60 % 12/27/2024 9:23 AM EDT [facility] Blood Venipuncture / Unknown 12/27/2024 7:50 AM EDT 12/27/2024 8:00 AM EDT Narrative [facility] - 12/27/2024 9:23 AM EDT Hemoglobin A1C Ranges: Increased Risk for Diabetes 5.7% to 6.4% Diabetes >= 6.5% Diabetic Goal < 7.0% Dania Chakraborty ASSEMBLY INSTRUCTIONS WRITER LAB BLOOD ORDERABLES Fin al Result Performing Organization Address [facility] Co de Phone Number [facility]
[address] [place] [address], * (ABNORMAL) POC Glucose Once (12/27/2024 7:05 AM EDT) Glucose 151(H) 70 - 130 mg/dL 12/27/2024 7:05 AM EDT [facility] Blood 12/27/2024 7:05 AM EDT 12/27/2024 7:05 AM EDT Marium Dos Santos MD POINT OF CARE TEST ORDER PAUL Final Result Performing Organization Address [facility] Co de Phone Number [facility]
[address] [place] [address], [place] [phone] * MRI Cervical Spine Without Contrast (12/27/2024 4:42 AM EDT) Anatomical Region Laterality Modality Spine, C-spine N/A Magnetic Resonan ce 12/27/2024 9:24 AM EDT Impressions 12/27/2024 9:49 AM EDT Impression: Moderate to severe multilevel degenerative changes of cervical spine as described above. Electronically Signed: Km Sanchez MD 12/27/2024 9:49 AM EDT Workstation ID: [id number] Narrative 12/27/2024 9:49 AM EDT MRI CERVICAL SPINE WO CONTRAST Date of Exam: 12/27/2024 4:07 AM EDT Indication: neck pain. Comparison: None available. Technique: Routine multiplanar/multisequence sequence images of the cervical spine were obtained without contrast administration. Findings: The alignment is anatomic. The craniocervical junction appears intact. There is a mild chronic superior endplate compression deformity at T1. There are degenerative endplate changes at C5-6. There are moderate discogenic changes at C5-6, and mild discogenic change at C4-5. The partially visualized posterior fossa contents are unremarkable. The spinal cord appears normal in signal throughout. The prevertebral soft tissues are unremarkable. C2-3: Severe right and moderate left facet arthropathy. Moderate right paracentral osteophyte. No spinal canal stenosis. Severe right neural foraminal stenosis. C3-4: Mild disc osteophyte complex. Severe bilateral facet arthropathy. Mild right and severe left uncovertebral hypertrophy. Mild spinal canal stenosis. Moderate right and severe left neural foraminal stenosis. C4-5: Moderate disc osteophyte complex with superimposed moderate left paracentral disc protrusion. Severe bilateral facet arthropathy with ligamentum flavum infolding. Moderate bilateral uncovertebral hypertrophy. Severe spinal canal stenosis. Severe right and moderate left neural foraminal stenosis. C5-6: Moderate disc osteophyte complex with superimposed moderate central disc extrusion traversing 5 mm inferiorly. Severe right and moderate left facet arthropathy with ligamentum flavum infolding. Moderate right and severe left uncovertebral hypertrophy. Severe spinal canal stenosis. Moderate right and severe left neural foraminal stenosis. C6-7: Moderate disc osteophyte complex with superimposed small left paracentral disc protrusion. Moderate bilateral facet arthropathy. Moderate bilateral uncovertebral hypertrophy. Mild spinal canal stenosis. Moderate bilateral neural foraminal stenosis. C7-T1: Mild right and moderate left facet arthropathy. No spinal canal stenosis. No neural foraminal stenosis. Procedure Note Km Sanchez MD - 12/27/2024 MRI CERVICAL SPINE WO CONTRAST Date of Exam: 12/27/2024 4:07 AM EDT Indication: neck pain. Comparison: None available. Technique: Routine multiplanar/multisequence sequence images of thecervical spine were obtained without contrast administration. Findings: The alignment is anatomic. The craniocervical junction appears intact.There is a mild chronic superior endplate compression deformity at T1.There are degenerative endplate changes at C5-6. There are moderatediscogenic changes at C5-6, and mild discogenic change at C4-5. The partially visualized posterior fossacontents are unremarkable. The spinal cord appears normal in signalthroughout. The prevertebral soft tissues are unremarkable. C2-3: Severe right and moderate left facet arthropathy. Moderate rightparacentral osteophyte. No spinal canal stenosis. Severe right neuralforaminal stenosis. C3-4: Mild disc osteophyte complex. Severe bilateral facet arthropathy.Mild right and severe left uncovertebral hypertrophy. Mild spinal canalstenosis. Moderate right and severe left neural foraminal stenosis. C4-5: Moderate disc osteophyte complex with superimposed moderate leftparacentral disc protrusion. Severe bilateral facet arthropathy withligamentum flavum infolding. Moderate bilateral uncovertebral hypertrophy.Severe spinal canal stenosis. Severe right and moderate left neural foraminal stenosis. C5-6: Moderate disc osteophyte complex with superimposed moderate centraldisc extrusion traversing 5 mm inferiorly. Severe right and moderate leftfacet arthropathy with ligamentum flavum infolding. Moderate right andsevere left uncovertebral hypertrophy. Severe spinal canal stenosis. Moderate right and severe leftneural foraminal stenosis. C6-7: Moderate disc osteophyte complex with superimposed small leftparacentral disc protrusion. Moderate bilateral facet arthropathy.Moderate bilateral uncovertebral hypertrophy. Mild spinal canal stenosis.Moderate bilateral neural foraminal stenosis. C7-T1: Mild right and moderate left facet arthropathy. No spinal canalstenosis. No neural foraminal stenosis. IMPRESSION: Impression: Moderate to severe multilevel degenerative changes of cervical spine asdescribed above. Electronically Signed: Km Sanchez MD 12/27/2024 9:49 AM EDT Workstation ID: [id number] Dania Chakraborty ASSEMBLY INSTRUCTIONS WRITER IMG MRI ORDERABLES Final Result * MRI Brain Without Contrast (12/27/2024 4:42 AM EDT) Anatomical Region Laterality Modality Head, Neck N/A Magnetic Resonan ce 12/27/2024 6:56 AM EDT Impressions 12/27/2024 7:04 AM EDT Impression: 1. No acute intracranial abnormality 2. Minimal white matter changes compatible small vessel ischemic disease in this age group Electronically Signed: David Hines MD 12/27/2024 7:04 AM EDT Workstation ID: [id number] Narrative 12/27/2024 7:04 AM EDT MRI BRAIN WO CONTRAST Date of Exam: 12/27/2024 4:07 AM EDT Indication: Stroke, follow up transient vision loss. Comparison: None available. Technique: Routine multiplanar/multisequence sequence images of the brain were obtained without contrast administration. Findings: There is some motion artifact. Diffusion weighted imaging demonstrates no acute restriction abnormality. Midline structures of the brain appear grossly unremarkable in appearance. Pituitary and sella structures and craniocervical junction appear grossly unremarkable in appearance. There is no acute intracranial hemorrhage or mass effect. The ventricles, cisterns and sulci appear appropriate for stated age. Major intracranial flow voids appear grossly patent. Minimal FLAIR and T2 signal hyperintensity within the brain parenchyma compatible with sequela of small vessel ischemic change in this age group. Paranasal sinuses appear well aerated. Small mucous retention cyst inferiorly right maxillary sinus suspected. Motion limited imaging of the globes and orbits appear grossly unremarkable in appearance. Cerebral pontine angle structures and inner ear structures appear grossly unremarkable in appearance. Globes and orbits are grossly unremarkable Procedure Note David Hines MD - 12/27/2024 MRI BRAIN WO CONTRAST Date of Exam: 12/27/2024 4:07 AM EDT Indication: Stroke, follow up transient vision loss. Comparison: None available. Technique: Routine multiplanar/multisequence sequence images of the brainwere obtained without contrast administration. Findings: There is some motion artifact. Diffusion weighted imaging demonstrates noacute restriction abnormality. Midline structures of the brain appeargrossly unremarkable in appearance. Pituitary and sella structures andcraniocervical junction appear grossly unremarkable in appearance. There is no acute intracranial hemorrhage ormass effect. The ventricles, cisterns and sulci appear appropriate forstated age. Major intracranial flow voids appear grossly patent. MinimalFLAIR and T2 signal hyperintensity within the brain parenchyma compatible with sequela of small vesselischemic change in this age group. Paranasal sinuses appear well aerated.Small mucous retention cyst inferiorly right maxillary sinus suspected.Motion limited imaging of the globes and orbits appear grossly unremarkable in appearance. Cerebral pontine anglestructures and inner ear structures appear grossly unremarkable inappearance. Globes and orbits are grossly unremarkable IMPRESSION: Impression: 1. No acute intracranial abnormality 2. Minimal white matter changes compatible small vessel ischemic diseasein this age group Electronically Signed: David Hines MD 12/27/2024 7:04 AM EDT Workstation ID: [id number] Dania Chakraborty ASSEMBLY INSTRUCTIONS WRITER IMG MRI ORDERABLES Final Result * (ABNORMAL) POC Glucose Once (12/26/2024 8:03 PM EDT) Glucose 269(H) 70 - 130 mg/dL 12/26/2024 8:04 PM EDT [facility] Blood 12/26/2024 8:03 PM EDT 12/26/2024 8:04 PM EDT Lynn Valle DO POINT OF CARE TEST ORDERABL ES Final Result [facility]
[address] [place] [address], * (ABNORMAL) POC Glucose Once (12/26/2024 4:43 PM EDT) Glucose 165(H) 70 - 130 mg/dL 12/26/2024 4:45 PM EDT [facility] Blood 12/26/2024 4:43 PM EDT 12/26/2024 4:45 PM EDT us Lynn Valle DO POINT OF CARE TEST ORDERABL ES Final Result [facility]
[address] [id number], [place] [phone] * ECHO COMPLETE W/ DOPPLER AND COLOR FLOW (12/26/2024 3:57 PM EDT) [facility] CV ECHO SHUNT ASSESSMENT PERFORMED (HIDDEN SCRIPTING) 1 EF(MOD-bp) 56.2 % LVIDd 5.0 cm LVIDs 3.5 cm IVSd 1.10 cm LVPWd 1.10 cm FS 30.0 % IVS/LVPW 1.00 cm ESV(cubed) 42.9 ml LV Sys Vol (BSA corrected) 20.1 cm2 EDV(cubed) 125.0 ml LV Esquivel Vol (BSA corrected) 49.9 cm2 LV mass(C)d 207.1 grams LVOT area 4.2 cm2 LVOT diam 2.30 cm EDV(MOD-sp2) 106.0 ml EDV(MOD-sp4) 104.0 ml ESV(MOD-sp2) 48.3 ml ESV(MOD-sp4) 41.8 ml SV(MOD-sp2) 57.7 ml SV(MOD-sp4) 62.2 ml SVi(MOD-SP2) 27.7 ml/m2 SVi(MOD-SP4) 29.9 ml/m2 SVi (LVOT) 45.5 ml/m2 EF(MOD-sp2) 54.4 % EF(MOD-sp4) 59.8 % MV E max sincere 79.1 cm/sec MV A max sincere 102.0 cm/sec MV dec time 0.39 sec MV E/A 0.78 IVRT 99.0 ms LA ESV Index (BP) 20.0 ml/m2 Med Peak E' Sincere 7.6 cm/sec Lat Peak E' Sincere 12.8 cm/sec TR max sincere 208.0 cm/sec Avg E/e' ratio 7.75 SV(LVOT) 94.7 ml RV Base 3.7 cm RV Mid 2.6 cm RV Length 7.4 cm TAPSE (>1.6) 2.7 cm RV S' 14.9 cm/sec LA dimension (2D) 3.7 cm LV V1 max 90.2 cm/sec LV V1 max PG 3.3 mmHg LV V1 mean PG 2.00 mmHg LV V1 VTI 22.8 cm Ao pk sincere 197.0 cm/sec Ao max PG 15.5 mmHg Ao mean PG 8.0 mmHg Ao V2 VTI 46.4 cm MAYELA(I,D) 2.04 cm2 Dimensionless Index 0.49 (DI) MV max PG 5.7 mmHg MV mean PG 2.00 mmHg MV V2 VTI 38.6 cm MV P1/2t 93.7 msec MVA(P1/2t) 2.35 cm2 MVA(VTI) 2.45 cm2 MV dec slope 325.0 cm/sec2 TR max PG 17.3 mmHg PA acc time 0.10 sec Ao root diam 3.7 cm Ascending aorta 3.2 cm RVSP(TR) 25 mmHg RAP systole 8 mmHg Anatomical Region Laterality Modality Ultrasound Narrative 12/26/2024 7:52 PM EDT Left ventricular systolic function is normal. Left ventricular ejection fraction appears to be 56 - 60%. Left ventricular diastolic function is consistent with (grade I) impaired relaxation. Mild aortic valve stenosis is present. Mean gradient 16 mmHg. There is trace aortic regurgitation. Aortic valve maximum pressure gradient is 16 mmHg. Trace mitral regurgitation. Trace tricuspid regurgitation with normal RVSP. Saline test results are positive. Left Ventricle Left ventricular systolic function is normal. Left ventricular ejection fraction appears to be 56 - 60%. Normal left ventricular cavity size and wall thickness noted. All left ventricular wall segments contract normally. Left ventricular diastolic function is consistent with (grade I) impaired relaxation. Right Ventricle Normal right ventricular cavity size and systolic function noted. Left Atrium Normal left atrial size and volume noted. Saline test results are positive. Right Atrium Normal right atrial cavity size noted. The inferior vena cava is dilated. The diameter of the inferior vena cava is 2.3 cm. Normal IVC inspiratory collapse of greater than 50% noted. Mitral Valve The mitral valve is structurally normal with no significant stenosis present. Trace mitral valve regurgitation is present. Tricuspid Valve The tricuspid valve is structurally normal with no significant stenosis present. Trace tricuspid valve regurgitation is present. Estimated right ventricular systolic pressure from tricuspid regurgitation is normal (<35 mmHg). Calculated right ventricular systolic pressure from tricuspid regurgitation is 25 mmHg. Aortic Valve The aortic valve is abnormal in structure. There is calcification of the aortic valve. Trace aortic valve regurgitation is present. Mild aortic valve stenosis is present. Aortic valve maximum pressure gradient is 15.5 mmHg. Pulmonic Valve The pulmonic valve is structurally normal with no regurgitation or significant stenosis present. Pericardium The pericardium is normal. There is no evidence of pericardial effusion. . Greater Vessels No dilation of the aortic root is present. No dilation of the sinuses of Valsalva is present. No dilation of the ascending aorta is present. Study Quality The study is technically adequate for diagnosis. Shunt Assessment Verbal consent was obtained from the patient for use of agitated saline to assess for shunting. A total of 10 mL of agitated saline was administered. Dania Chakraborty ASSEMBLY INSTRUCTIONS WRITER CV ECHO ORDERABLES Final Result * (ABNORMAL) POC Glucose Once (12/26/2024 12:36 PM EDT) Glucose 271(H) 70 - 130 mg/dL 12/26/2024 12:43 PM EDT [facility] Blood 12/26/2024 12:3 6 PM EDT 12/26/2024 12:43 PM EDT Lynn Valle DO POINT OF CARE TEST ORDERABL ES Final Result [facility]
[address] [place] [address], * IMAGING SCANNED (12/26/2024) Anatomical Region Laterality Modality Radiographic [place] [facility] IMG DIAGNOSTIC IMAGING ORDERA BLES Final Result * IMAGING SCANNED (12/26/2024) Anatomical Region Laterality Modality Radiographic [place] [facility] IMG DIAGNOSTIC IMAGING ORDERA BLES Final Result * IMAGING SCANNED (12/26/2024) Anatomical Region Laterality Modality Radiographic [place] Result [facility] IMG DIAGNOSTIC IMAGING ORDERA BLES Final Result * IMAGING SCANNED (12/26/2024) Anatomical Region Laterality Modality Radiographic [place] Result [facility] IMG DIAGNOSTIC IMAGING ORDERA BLES Final Result * ECG Scan (12/26/2024) Result [facility] ECG ORDERABLES Final Result documented in this encounter Visit Diagnoses Diagnosis Vision changes- Primary Cervical spondylosis with radiculopathy Cervical spondylosis with myelopathy PFO (patent foramen ovale) Ostium secundum type atrial septal defect Bradycardia, sinus Other specified cardiac dysrhythmias WILL (obstructive sleep apnea) Obstructive sleep apnea (adult) (pediatric) documented in this encounter Admitting Diagnoses Diagnosis Vision changes documented in this encounter Administered Medications Inactive Administered Medications - up to 3 most recent administrations Medication Order MAR Action Action Date Dose Rate Site acetaminophen (TYLENOL) 160 MG/5ML oral solution 650 mg 650 mg, Oral, Every 4 Hours PRN, Mild Pain, Starting on 12/26/24 at 1509, If given for fever, use fever parameter: fever greater than 100.4 F Based on patient request - if ordered for moderate or severe pain, provider allows for administration of a medication prescribed for a lower pain scale. Do not exceed 4 grams of acetaminophen in a 24 hr period. Max dose of 2gm for AST/ALT greater than 120 units/L. If given for pain, use the following pain scale: Mild Pain = Pain Score of 1-3, CPOT 1-2 Moderate Pain = Pain Score of 4-6, CPOT 3-4 Severe Pain = Pain Score of 7-10, CPOT 5-8 acetaminophen (TYLENOL) suppository 650 mg 650 mg, Rectal, Every 4 Hours PRN, Mild Pain, Starting on Fri12/26/24 at 1509, If given for fever, use fever parameter: fever greater than 100.4 F Based on patient request - if ordered for moderate or severe pain, provider allows for administration of a medication prescribed for a lower pain scale. Do not exceed 4 grams of acetaminophen in a 24 hr period. Max dose of 2gm for AST/ALT greater than 120 units/L. If given for pain, use the following pain scale: Mild Pain = Pain Score of 1-3, CPOT 1-2 Moderate Pain = Pain Score of 4-6, CPOT 3-4 Severe Pain = Pain Score of 7-10, CPOT 5-8 acetaminophen (TYLENOL) tablet 650 mg 650 mg, Oral, Every 4 Hours PRN, Mild Pain, Starting on 12/26/24 at 1509, If given for fever, use fever parameter: fever greater than 100.4 F Based on patient request - if ordered for moderate or severe pain, provider allows for administration of a medication prescribed for a lower pain scale. Do not exceed 4 grams of acetaminophen in a 24 hr period. Max dose of 2gm for AST/ALT greater than 120 units/L. If given for pain, use the following pain scale: Mild Pain = Pain Score of 1-3, CPOT 1-2 Moderate Pain = Pain Score of 4-6, CPOT 3-4 Severe Pain = Pain Score of 7-10, CPOT 5-8 amLODIPine (NORVASC) tablet 5 mg 5 mg, Oral, Every 24 Hours Scheduled, First dose (after last modification) on Fri12/27/24 at 1030, Hold for SBP less than 100, DBP less than 60. Caution: Look alike/sound alike drug alert. Avoid grapefruit juice. Given 12/28/2024 9:03 AM EDT 5 mg aspirin chewable tablet 81 mg 81 mg, Oral, Daily, First dose on Fri12/27/24 at 0900, If patient fails dysphagia, [place] option MUST be given. Do not exceed 4 grams of aspirin in a 24 hr period. If given for pain, use the following pain scale: Mild Pain = Pain Score of 1-3, CPOT 1-2 Moderate Pain = Pain Score of 4-6, CPOT 3-4 Severe Pain = Pain Score of 7-10, CPOT 5-8 Given 12/28/2024 8:55 AM EDT 81 mg Given 12/27/2024 9:37 AM EDT 81 mg atorvastatin (LIPITOR) tablet 80 mg 80 mg, Oral, Nightly, First dose on Fri12/26/24 at 2100, Avoid grapefruit juice. Given 12/27/2024 9:02 PM EDT 80 mg Given 12/26/2024 9:36 PM EDT 80 mg baclofen (LIORESAL) tablet 10 mg 10 mg, Oral, Every 12 Hours Scheduled, First dose on Fri12/26/24 at 2100, Take with food if GI upset occurs. Given 12/28/2024 8:56 AM EDT 10 mg Given 12/27/2024 9:02 PM EDT 10 mg Given 12/27/2024 9:37 AM EDT 10 mg bisacodyl (DULCOLAX) EC tablet 5 mg 5 mg, Oral, Daily PRN, Constipation, Use if polyethylene glycol is ineffective, Starting on Fri12/26/24 at 1508, Use if no bowel movement after 12 hours. Swallow whole. Do not crush, split, or chew tablet. bisacodyl (DULCOLAX) suppository 10 mg 10 mg, Rectal, Daily PRN, Constipation, Use if bisacodyl oral is ineffective, Starting on Fri12/26/24 at 1508, Use if no bowel movement after 12 hours. Hold for diarrhea calcium gluconate 1000 Mg/50ml 0.675% NaCl IV SOLN 1,000 mg, Intravenous, Administer over 15 Minutes, Once, On Fri12/27/24 at 0930, For 1 dose New Bag 12/27/2024 1:41 PM EDT 1,000 mg clopidogrel (PLAVIX) tablet 300 mg 300 mg, Oral, Once, On Fri12/26/24 at 1330, For 1 dose Given 12/26/2024 2:46 PM EDT 300 mg clopidogrel (PLAVIX) tablet 75 mg 75 mg, Oral, Daily, First dose on Fri12/27/24 at 0900 Given 12/28/2024 8:56 AM EDT 75 mg Given 12/27/2024 9:37 AM EDT 75 mg dextrose (D50W) (25 g/50 mL) IV injection 25 g 25 g, Intravenous, Every 15 Minutes PRN, Low Blood Sugar, Blood Sugar Less Than 70, Starting on Fri12/26/24 at 1528, Blood sugar less than 70; patient has IV access - Unresponsive, NPO or Unable To Safely Swallow dextrose (D50W) (25 g/50 mL) IV injection 25 g 25 g, Intravenous, Once, On Fri12/27/24 at 0930, For 1 dose, Administer IV for Hyperkalemia Given 12/27/2024 9:34 AM EDT 25 g dextrose (GLUTOSE) oral gel 15 g 15 g, Oral, Every 15 Minutes PRN, Low Blood Sugar, Blood sugar less than 70, Starting on Fri12/26/24 at 1528, BS<70, Patient Alert, Is not NPO, Can safely swallow. empagliflozin (JARDIANCE) tablet 25 mg 25 mg, Oral, Daily, First dose on Fri12/28/24 at 0900 Given 12/28/2024 9:03 AM EDT 25 mg glucagon (GLUCAGEN) injection 1 mg 1 mg, Intramuscular, Every 15 Minutes PRN, Low Blood Sugar, Blood Glucose Less Than 70, Starting on Fri12/26/24 at 1528, Blood Glucose Less Than 70 - Patient Without IV Access - Unresponsive, NPO or Unable To Safely Swallow Reconstitute powder for injection by adding 1 mL of hydro sprayer operator-supplied sterile diluent or sterile water for injection to a vial containing 1 mg of the drug, to provide solutions containing 1 mg/mL. Shake vial gently to dissolve. Insulin Lispro (humaLOG) injection 2-7 Units 2-7 Units, Subcutaneous, 4 Times Daily Before Meals & Nightly, First dose on Fri12/26/24 at 1730, Correction Insulin - Low Dose - Total Insulin Dose Less Than 40 units/day (Lean, Elderly or Renal Patients) Blood Glucose 150-199 mg/dL - 2 units Blood Glucose 200-249 mg/dL - 3 units Blood Glucose 250-299 mg/dL - 4 units Blood Glucose 300-349 mg/dL - 5 units Blood Glucose 350-400 mg/dL - 6 units Blood Glucose Greater Than 400 mg/dL - 7 units & Call Provider ([facility]) Caution: Look alike/sound alike drug alert([facility]) Given 12/28/2024 12:30 PM EDT 2 Units Left Arm Given 12/28/2024 8:56 AM EDT 3 Units Le ft Arm Given 12/27/2024 9:02 PM EDT 3 Units Le ft Lower Abdomen insulin regular (humuLIN R,novoLIN R) injection 10 Units 10 Units, Intravenous, Once, On Fri12/27/24 at 0930, For 1 dose, Administer IV for Hyperkalemia ([facility]) Caution: Look alike/sound alike drug alert([facility]) Given 12/27/2024 9:35 AM EDT 10 Units lisinopril (PRINIVIL,ZESTRIL) tablet 10 mg 10 mg, Oral, Every 12 Hours Scheduled, First dose (after last modification) on Fri12/27/24 at 1030, Hold for SBP less than 100, DBP less than 60. Given 12/28/2024 8:55 AM EDT 10 mg Given 12/27/2024 9:03 PM EDT 10 mg metFORMIN (GLUCOPHAGE) tablet 1,000 mg 1,000 mg, Oral, 2 Times Daily With Meals, First dose on Fri12/28/24 at 0900, Caution: Look alike/sound alike drug alert Given 12/28/2024 9:03 AM EDT 1,000 mg nicotine (NICODERM CQ) 21 MG/24HR patch 1 patch 1 patch, Transdermal, Administer over 24 Hours, Every 24 Hours, First dose on Fri12/26/24 at 1600, Apply Patch to Clean, Dry, Hairless Area Daily - Rotating Sites. REMOVE Old Patch Prior to Applying New Patch. May Remove Patch at Bedtime If Needed to Prevent Insomnia. Do Not Use Other Nicotine Products. At Discharge, Follow Package Instructions. Dispose of nicotine replacement therapies and their wrappers in non-hazardous pharmaceutical waste or in regular trash. nicotine polacrilex (NICORETTE) gum 4 mg 4 mg, Mouth/Throat, Every 1 Hour PRN, Smoking Cessation, Starting on 12/26/24 at 1509, Maximum 24 pieces in 24 hours. Gum should be chewed until it tingles, then park between the gum and cheek. When the tingling is gone, chew again until the tingle returns and once again park between gum and cheek. Repeat until tingling is gone and discard. At discharge, follow instructions on package Dispose of nicotine replacement therapies and their wrappers in non-hazardous pharmaceutical waste or in regular trash. nitroglycerin (NITROSTAT) SL tablet 0.4 mg 0.4 mg, Sublingual, Every 5 Minutes PRN, Chest Pain, Starting on Fri12/26/24 at 1508, If Pain Unrelieved After 3 Doses Notify MD May administer up to 3 doses per episode. Hold if SBP less than 100. ondansetron (ZOFRAN) injection 4 mg 4 mg, Intravenous, Every 6 Hours PRN, Nausea, Vomiting, Starting on Fri12/26/24 at 1509, If BOTH ondansetron (ZOFRAN) and promethazine (PHENERGAN) are ordered use ondansetron first and THEN promethazine IF ondansetron is ineffective. ondansetron ODT (ZOFRAN-ODT) disintegrating tablet 4 mg 4 mg, Oral, Every 6 Hours PRN, Nausea, Vomiting, Starting on Fri12/26/24 at 1509, If BOTH ondansetron (ZOFRAN) and promethazine (PHENERGAN) are ordered use ondansetron first and THEN promethazine IF ondansetron is ineffective. Place on tongue and allow to dissolve. polyethylene glycol (MIRALAX) packet 17 g 17 g, Oral, Daily PRN, Constipation, Use if senna-docusate is ineffective, Starting on 12/26/24 at 1508, Use if no bowel movement after 12 hours. Mix in 6-8 ounces of water. Use 4-8 ounces of water, tea, or juice for each 17 gram dose. sennosides-docusate (PERICOLACE) 8.6-50 MG per tablet 2 tablet 2 tablet, Oral, 2 Times Daily PRN, Constipation, Starting on Fri12/26/24 at 1508, Start bowel management regimen if patient has not had a bowel movement after 12 hours. sodium bicarbonate injection 8.4% 50 mEq 50 mEq, Intravenous, Once, On Fri12/27/24 at 0930, For 1 dose, Indications: HyperkalemiaIndications:Hyperkalemia Given 12/27/2024 1:41 PM EDT 50 mEq sodium chloride 0.9 % flush 10 mL 10 mL, Intravenous, Every 12 Hours Scheduled, First dose on Fri12/26/24 at 1330 Given 12/28/2024 9:04 AM EDT 10 mL Given 12/27/2024 9:03 PM EDT 10 mL Given 12/26/2024 9:37 PM EDT 10 mL sodium chloride 0.9 % flush 10 mL 10 mL, Intravenous, As Needed, Line Care, Starting on Fri12/26/24 at 1236 sodium chloride 0.9 % flush 10 mL 10 mL, Intravenous, Every 12 Hours Scheduled, First dose on Fri12/26/24 at 2100 Given 12/28/2024 9:04 AM EDT 10 mL Given 12/27/2024 9:03 PM EDT 10 mL Given 12/27/2024 9:37 AM EDT 10 mL sodium chloride 0.9 % flush 10 mL 10 mL, Intravenous, As Needed, Line Care, Starting on Fri12/26/24 at 1508 sodium chloride 0.9 % infusion 40 mL 40 mL, Intravenous, at 100 mL/hr, As Needed, Line Care, Starting on Fri12/26/24 at 1236, Following administration of an IV intermittent medication, flush line with 40mL NS at 100mL/hr. sodium chloride 0.9 % infusion 40 mL 40 mL, Intravenous, at 100 mL/hr, As Needed, Line Care, Starting on Fri12/26/24 at 1508, Following administration of an IV intermittent medication, flush line with 40mL NS at 100mL/hr. sodium chloride 0.9 % infusion 50 mL/hr, Intravenous, Continuous, Starting on Fri12/26/24 at 1615, For 15 hours Rate/Dose Verify 12/27/2024 4:38 AM EDT 50 mL/hr 50 mL/hr Rate/Dose Verify 12/27/2024 2:34 AM EDT 50 mL/hr 50 mL/h r Rate/Dose Verify 12/27/2024 12:28 AM EDT 50 mL/hr 50 mL/ hr documented in this encounter Active and Recently Administered Medications Times are shown in EDT. Scheduled Medication Order 12/26/2024 12/27/2024 12/28/2024 amLODIPine (NORVASC) tablet 5 mg 5 mg, Oral, Every 24 Hours Scheduled, First dose (after last modification) on 12/27/24 at 1030, Hold for SBP less than 100, DBP less than 60. Caution: Look alike/sound alike drug alert. Avoid grapefruit juice. 1529 (Held by provider - Provider: Marium Dos Santos MD - Reason: Other (Comment Required)) 1030 (Dose Auto Held) 0805 (Unheld by provider - Provider: Melly Mallory PA-C)0903 (Given - Provider: Ana Maria Maza, RN) aspirin chewable tablet 81 mg(Linked Group 1) 81 mg, Oral, Daily, First dose on Fri12/27/24 at 0900, If patient fails dysphagia, [place] option MUST be given. Do not exceed 4 grams of aspirin in a 24 hr period. If given for pain, use the following pain scale: Mild Pain = Pain Score of 1-3, CPOT 1-2 Moderate Pain = Pain Score of 4-6, CPOT 3-4 Severe Pain = Pain Score of 7-10, CPOT 5-8 0937 (Given - Provider: Jules Hughes RN) 0855 (Given - Provider: Ana Maria Maza, RN) atorvastatin (LIPITOR) tablet 80 mg 80 mg, Oral, Nightly, First dose on Fri12/26/24 at 2100, Avoid grapefruit juice. 2135 (Given - Provider: Julio Chua RN) 2101 (Given - Provider: Julio Chua RN) baclofen (LIORESAL) tablet 10 mg 10 mg, Oral, Every 12 Hours Scheduled, First dose on Fri12/26/24 at 2100, Take with food if GI upset occurs. 2135 (Given - Provider: Julio Chua RN) 09 (Given - Provider: Jules Hughes RN)2101 (Given - Provider: Julio Chua RN) 0856 (Given - Provider: Ana Maria Maza, CHRISSY) calcium gluconate 1000 Mg/50ml 0.675% NaCl IV SOLN (COMPLETED) 1,000 mg, Intravenous, Administer over 15 Minutes, Once, On Fri12/27/24 at 0930, For 1 dose 1341 (New Bag - Provider: Jules Hughes RN)1851 (Stopped - Provider: Julio Chua RN) clopidogrel (PLAVIX) tablet 300 mg (COMPLETED)(Linked Group 2) 300 mg, Oral, Once, On Fri12/26/24 at 1330, For 1 dose 1446 (Given - Provider: Sylvia Chapman RN) clopidogrel (PLAVIX) tablet 75 mg(Linked Group 2) 75 mg, Oral, Daily, First dose on Fri12/27/24 at 0900 0937 (Given - Provider: Jules Hughes RN) 0856 (Given - Provider: Ana Maria Maza, CHRISSY) dextrose (D50W) (25 g/50 mL) IV injection 25 g (COMPLETED) 25 g, Intravenous, Once, On Fri12/27/24 at 0930, For 1 dose, Administer IV for Hyperkalemia 0934 (Given - Provider: Jules Hughes RN) empagliflozin (JARDIANCE) tablet 25 mg 25 mg, Oral, Daily, First dose on Fri12/28/24 at 0900 0903 (Given - Provider: Ana Maria Maza, CHRISSY) hydroCHLOROthiazide tablet 25 mg 25 mg, Oral, Daily, First dose on Fri12/26/24 at 1615, Hold for SBP less than 100, DBP less than 60. Caution: Look alike/sound alike drug alert, On hold since Fri12/26/2024 at 1529 until manually unheld 1529 (Held by provider - Provider: Lynn Valle, - Reason: Other (Comment Required))1615 (Dose Auto Held) 0900 (Dose Auto Held) 0900 (Dose Auto Held)1848 (Unheld by provider - Provider: Automatic Discharge Provider) Insulin Lispro (humaLOG) injection 2-7 Units 2-7 Units, Subcutaneous, 4 Times Daily Before Meals & Nightly, First dose on Fri12/26/24 at 1730, Correction Insulin - Low Dose - Total Insulin Dose Less Than 40 units/day (Lean, Elderly or Renal Patients) Blood Glucose 150-199 mg/dL - 2 units Blood Glucose 200-249 mg/dL - 3 units Blood Glucose 250-299 mg/dL - 4 units Blood Glucose 300-349 mg/dL - 5 units Blood Glucose 350-400 mg/dL - 6 units Blood Glucose Greater Than 400 mg/dL - 7 units & Call Provider ([facility]) Caution: Look alike/sound alike drug alert([facility]) 180 (Given - Provider: Sylvia Chapman RN)213 (Given - Provider: Julio Chua RN) 0934 (Given - Provider: Jules Hughes, CHRISSY)1155 (Not Given - Provider: Jules Hughes RN - Reason: Other)1820 (Given - Provider: Jules Hughes RN)210 (Given - Provider: Julio Chua RN) 0856 (Given - Provider: Ana Maria Maza, RN)1230 (Given - Provider: Ana Maria Maza, CHRISSY) insulin regular (humuLIN R,novoLIN R) injection 10 Units (COMPLETED) 10 Units, Intravenous, Once, On Fri12/27/24 at 0930, For 1 dose, Administer IV for Hyperkalemia ([facility]) Caution: Look alike/sound alike drug alert([facility]) 0935 (Given - Provider: Jules Hughes RN) lisinopril (PRINIVIL,ZESTRIL) tablet 10 mg 10 mg, Oral, Every 12 Hours Scheduled, First dose (after last modification) on Fri12/27/24 at 1030, Hold for SBP less than 100, DBP less than 60. 1045 (Not Given - Provider: Jules Hughes RN - Reason: Other)2102 (Given - Provider: Julio Chua RN) 0855 (Given - Provider: Ana Maria Maza, CHRISSY) metFORMIN (GLUCOPHAGE) tablet 1,000 mg 1,000 mg, Oral, 2 Times Daily With Meals, First dose on Fri12/28/24 at 0900, Caution: Look alike/sound alike drug alert 0903 (Given - Provider: Ana Maria Maza RN) nicotine (NICODERM CQ) 21 MG/24HR patch 1 patch 1 patch, Transdermal, Administer over 24 Hours, Every 24 Hours, First dose on Fri12/26/24 at 1600, Apply Patch to Clean, Dry, Hairless Area Daily - Rotating Sites. REMOVE Old Patch Prior to Applying New Patch. May Remove Patch at Bedtime If Needed to Prevent Insomnia. Do Not Use Other Nicotine Products. At Discharge, Follow Package Instructions. Dispose of nicotine replacement therapies and their wrappers in non-hazardous pharmaceutical waste or in regular trash. 1802 (Not Given - Provider: Sylvia Chapman RN - Reason: Patient/family refused) 1630 (Not Given - Provider: Jules Hughes RN - Reason: Patient/family refused) 1600 (Due) sodium bicarbonate injection 8.4% 50 mEq (COMPLETED) 50 mEq, Intravenous, Once, On Fri12/27/24 at 0930, For 1 dose, Indications: Hyperkalemia 0938 (Canceled Entry - Provider: Jules Hughes RN)1341 (Given - Provider: Jules Hughes RN) sodium chloride 0.9 % flush 10 mL 10 mL, Intravenous, Every 12 Hours Scheduled, First dose on 12/26/24 at 1330 1447 (Given - Provider: Sylvia Chapman RN)2137 (Given - Provider: Julio Chua RN) 1751 (Not Given - Provider: Jules Hughes RN - Reason: Given from running infusion)2102 (Given - Provider: Julio Chua RN) 0904 (Given - Provider: Ana Maria Maza, RN) sodium chloride 0.9 % flush 10 mL 10 mL, Intravenous, Every 12 Hours Scheduled, First dose on 12/26/24 at 2100 2137 (Given - Provider: Julio Chua RN) 0937 (Given - Provider: Jules Hughes RN)210 (Given - Provider: Julio Chua RN) 0904 (Given - Provider: Ana Maria Maza, RN) Continuous Medication Order 12/26/2024 12/27/2024 12/28/2024 sodium chloride 0.9 % infusion () 50 mL/hr, Intravenous, Continuous, Starting on 12/26/24 at 1615, For 15 hours 1804 (New Bag - Provider: Sylvia Chapman RN)2009 (Rate/Dose Verify - Provider: Julio Chua RN)2224 (Rate/Dose Verify - Provider: Julio Chua RN) 0028 (Rate/Dose Verify - Provider: Julio Chua RN)0234 (Rate/Dose Verify - Provider: Julio Chua RN)0438 (Rate/Dose Verify - Provider: Julio Chua RN)1344 (Stopped - Provider: Jules Hughes RN - Comment: [Order ends at this time. Document the following action when infusion is complete: Stopped]) PRN Medication Order 12/26/2024 12/27/2024 12/28/2024 acetaminophen (TYLENOL) 160 MG/5ML oral solution 650 mg(Linked Group 3) 650 mg, Oral, Every 4 Hours PRN, Mild Pain, Starting on 12/26/24 at 1509, If given for fever, use fever parameter: fever greater than 100.4 F Based on patient request - if ordered for moderate or severe pain, provider allows for administration of a medication prescribed for a lower pain scale. Do not exceed 4 grams of acetaminophen in a 24 hr period. Max dose of 2gm for AST/ALT greater than 120 units/L. If given for pain, use the following pain scale: Mild Pain = Pain Score of 1-3, CPOT 1-2 Moderate Pain = Pain Score of 4-6, CPOT 3-4 Severe Pain = Pain Score of 7-10, CPOT 5-8 acetaminophen (TYLENOL) suppository 650 mg(Linked Group 3) 650 mg, Rectal, Every 4 Hours PRN, Mild Pain, Starting on 12/26/24 at 1509, If given for fever, use fever parameter: fever greater than 100.4 F Based on patient request - if ordered for moderate or severe pain, provider allows for administration of a medication prescribed for a lower pain scale. Do not exceed 4 grams of acetaminophen in a 24 hr period. Max dose of 2gm for AST/ALT greater than 120 units/L. If given for pain, use the following pain scale: Mild Pain = Pain Score of 1-3, CPOT 1-2 Moderate Pain = Pain Score of 4-6, CPOT 3-4 Severe Pain = Pain Score of 7-10, CPOT 5-8 acetaminophen (TYLENOL) tablet 650 mg(Linked Group 3) 650 mg, Oral, Every 4 Hours PRN, Mild Pain, Starting on 12/26/24 at 1509, If given for fever, use fever parameter: fever greater than 100.4 F Based on patient request - if ordered for moderate or severe pain, provider allows for administration of a medication prescribed for a lower pain scale. Do not exceed 4 grams of acetaminophen in a 24 hr period. Max dose of 2gm for AST/ALT greater than 120 units/L. If given for pain, use the following pain scale: Mild Pain = Pain Score of 1-3, CPOT 1-2 Moderate Pain = Pain Score of 4-6, CPOT 3-4 Severe Pain = Pain Score of 7-10, CPOT 5-8 bisacodyl (DULCOLAX) EC tablet 5 mg(Linked Group 4) 5 mg, Oral, Daily PRN, Constipation, Use if polyethylene glycol is ineffective, Starting on 12/26/24 at 1508, Use if no bowel movement after 12 hours. Swallow whole. Do not crush, split, or chew tablet. bisacodyl (DULCOLAX) suppository 10 mg(Linked Group 4) 10 mg, Rectal, Daily PRN, Constipation, Use if bisacodyl oral is ineffective, Starting on 12/26/24 at 1508, Use if no bowel movement after 12 hours. Hold for diarrhea dextrose (D50W) (25 g/50 mL) IV injection 25 g 25 g, Intravenous, Every 15 Minutes PRN, Low Blood Sugar, Blood Sugar Less Than 70, Starting on Fri12/26/24 at 1528, Blood sugar less than 70; patient has IV access - Unresponsive, NPO or Unable To Safely Swallow dextrose (GLUTOSE) oral gel 15 g 15 g, Oral, Every 15 Minutes PRN, Low Blood Sugar, Blood sugar less than 70, Starting on Fri12/26/24 at 1528, BS<70, Patient Alert, Is not NPO, Can safely swallow. glucagon (GLUCAGEN) injection 1 mg 1 mg, Intramuscular, Every 15 Minutes PRN, Low Blood Sugar, Blood Glucose Less Than 70, Starting on Fri12/26/24 at 1528, Blood Glucose Less Than 70 - Patient Without IV Access - Unresponsive, NPO or Unable To Safely Swallow Reconstitute powder for injection by adding 1 mL of hydro sprayer operator-supplied sterile diluent or sterile water for injection to a vial containing 1 mg of the drug, to provide solutions containing 1 mg/mL. Shake vial gently to dissolve. nicotine polacrilex (NICORETTE) gum 4 mg 4 mg, Mouth/Throat, Every 1 Hour PRN, Smoking Cessation, Starting on Fri12/26/24 at 1509, Maximum 24 pieces in 24 hours. Gum should be chewed until it tingles, then park between the gum and cheek. When the tingling is gone, chew again until the tingle returns and once again park between gum and cheek. Repeat until tingling is gone and discard. At discharge, follow instructions on package Dispose of nicotine replacement therapies and their wrappers in non-hazardous pharmaceutical waste or in regular trash. nitroglycerin (NITROSTAT) SL tablet 0.4 mg 0.4 mg, Sublingual, Every 5 Minutes PRN, Chest Pain, Starting on Fri12/26/24 at 1508, If Pain Unrelieved After 3 Doses Notify MD May administer up to 3 doses per episode. Hold if SBP less than 100. ondansetron (ZOFRAN) injection 4 mg(Linked Group 5) 4 mg, Intravenous, Every 6 Hours PRN, Nausea, Vomiting, Starting on 12/26/24 at 1509, If BOTH ondansetron (ZOFRAN) and promethazine (PHENERGAN) are ordered use ondansetron first and THEN promethazine IF ondansetron is ineffective. ondansetron ODT (ZOFRAN-ODT) disintegrating tablet 4 mg(Linked Group 5) 4 mg, Oral, Every 6 Hours PRN, Nausea, Vomiting, Starting on 12/26/24 at 1509, If BOTH ondansetron (ZOFRAN) and promethazine (PHENERGAN) are ordered use ondansetron first and THEN promethazine IF ondansetron is ineffective. Place on tongue and allow to dissolve. polyethylene glycol (MIRALAX) packet 17 g(Linked Group 4) 17 g, Oral, Daily PRN, Constipation, Use if senna-docusate is ineffective, Starting on 12/26/24 at 1508, Use if no bowel movement after 12 hours. Mix in 6-8 ounces of water. Use 4-8 ounces of water, tea, or juice for each 17 gram dose. sennosides-docusate (PERICOLACE) 8.6-50 MG per tablet 2 tablet(Linked Group 4) 2 tablet, Oral, 2 Times Daily PRN, Constipation, Starting on 12/26/24 at 1508, Start bowel management regimen if patient has not had a bowel movement after 12 hours. sodium chloride 0.9 % flush 10 mL 10 mL, Intravenous, As Needed, Line Care, Starting on 12/26/24 at 1236 sodium chloride 0.9 % flush 10 mL 10 mL, Intravenous, As Needed, Line Care, Starting on 12/26/24 at 1508 sodium chloride 0.9 % infusion 40 mL 40 mL, Intravenous, at 100 mL/hr, As Needed, Line Care, Starting on 12/26/24 at 1236, Following administration of an IV intermittent medication, flush line with 40mL NS at 100mL/hr. sodium chloride 0.9 % infusion 40 mL 40 mL, Intravenous, at 100 mL/hr, As Needed, Line Care, Starting on Fri12/26/24 at 1508, Following administration of an IV intermittent medication, flush line with 40mL NS at 100mL/hr. Linked Groups Order Group 1: aspirin chewable tablet 81 mgJump to med 81 mg, Oral, Daily, First dose on Fri12/27/24 at 0900, If patient fails dysphagia, [place] option MUST be given. Do not exceed 4 grams of aspirin in a 24 hr period. If given for pain, use the following pain scale: Mild Pain = Pain Score of 1-3, CPOT 1-2 Moderate Pain = Pain Score of 4-6, CPOT 3-4 Severe Pain = Pain Score of 7-10, CPOT 5-8 Or aspirin suppository 300 mg (CANCELED) 300 mg, Rectal, Daily, First dose on Fri12/27/24 at 0900, If patient fails dysphagia, [place] option MUST be given. Do not exceed 4 grams of aspirin in a 24 hr period. If given for pain, use the following pain scale: Mild Pain = Pain Score of 1-3, CPOT 1-2 Moderate Pain = Pain Score of 4-6, CPOT 3-4 Severe Pain = Pain Score of 7-10, CPOT 5-8 Group 2: clopidogrel (PLAVIX) tablet 300 mg (COMPLETED)Jump to med 300 mg, Oral, Once, On Fri12/26/24 at 1330, For 1 dose And clopidogrel (PLAVIX) tablet 75 mgJump to med 75 mg, Oral, Daily, First dose on Fri12/27/24 at 0900 Group 3: acetaminophen (TYLENOL) tablet 650 mgJump to med 650 mg, Oral, Every 4 Hours PRN, Mild Pain, Starting on Fri12/26/24 at 1509, If given for fever, use fever parameter: fever greater than 100.4 F Based on patient request - if ordered for moderate or severe pain, provider allows for administration of a medication prescribed for a lower pain scale. Do not exceed 4 grams of acetaminophen in a 24 hr period. Max dose of 2gm for AST/ALT greater than 120 units/L. If given for pain, use the following pain scale: Mild Pain = Pain Score of 1-3, CPOT 1-2 Moderate Pain = Pain Score of 4-6, CPOT 3-4 Severe Pain = Pain Score of 7-10, CPOT 5-8 Or acetaminophen (TYLENOL) 160 MG/5ML oral solution 650 mgJump to med 650 mg, Oral, Every 4 Hours PRN, Mild Pain, Starting on 12/26/24 at 1509, If given for fever, use fever parameter: fever greater than 100.4 F Based on patient request - if ordered for moderate or severe pain, provider allows for administration of a medication prescribed for a lower pain scale. Do not exceed 4 grams of acetaminophen in a 24 hr period. Max dose of 2gm for AST/ALT greater than 120 units/L. If given for pain, use the following pain scale: Mild Pain = Pain Score of 1-3, CPOT 1-2 Moderate Pain = Pain Score of 4-6, CPOT 3-4 Severe Pain = Pain Score of 7-10, CPOT 5-8 Or acetaminophen (TYLENOL) suppository 650 mgJump to med 650 mg, Rectal, Every 4 Hours PRN, Mild Pain, Starting on 12/26/24 at 1509, If given for fever, use fever parameter: fever greater than 100.4 F Based on patient request - if ordered for moderate or severe pain, provider allows for administration of a medication prescribed for a lower pain scale. Do not exceed 4 grams of acetaminophen in a 24 hr period. Max dose of 2gm for AST/ALT greater than 120 units/L. If given for pain, use the following pain scale: Mild Pain = Pain Score of 1-3, CPOT 1-2 Moderate Pain = Pain Score of 4-6, CPOT 3-4 Severe Pain = Pain Score of 7-10, CPOT 5-8 Group 4: sennosides-docusate (PERICOLACE) 8.6-50 MG per tablet 2 tabletJump to med 2 tablet, Oral, 2 Times Daily PRN, Constipation, Starting on 12/26/24 at 1508, Start bowel management regimen if patient has not had a bowel movement after 12 hours. And polyethylene glycol (MIRALAX) packet 17 gJump to med 17 g, Oral, Daily PRN, Constipation, Use if senna-docusate is ineffective, Starting on 12/26/24 at 1508, Use if no bowel movement after 12 hours. Mix in 6-8 ounces of water. Use 4-8 ounces of water, tea, or juice for each 17 gram dose. And bisacodyl (DULCOLAX) EC tablet 5 mgJump to med 5 mg, Oral, Daily PRN, Constipation, Use if polyethylene glycol is ineffective, Starting on 12/26/24 at 1508, Use if no bowel movement after 12 hours. Swallow whole. Do not crush, split, or chew tablet. And bisacodyl (DULCOLAX) suppository 10 mgJump to med 10 mg, Rectal, Daily PRN, Constipation, Use if bisacodyl oral is ineffective, Starting on 12/26/24 at 1508, Use if no bowel movement after 12 hours. Hold for diarrhea Group 5: ondansetron ODT (ZOFRAN-ODT) disintegrating tablet 4 mgJump to med 4 mg, Oral, Every 6 Hours PRN, Nausea, Vomiting, Starting on 12/26/24 at 1509, If BOTH ondansetron (ZOFRAN) and promethazine (PHENERGAN) are ordered use ondansetron first and THEN promethazine IF ondansetron is ineffective. Place on tongue and allow to dissolve. Or ondansetron (ZOFRAN) injection 4 mgJump to med 4 mg, Intravenous, Every 6 Hours PRN, Nausea, Vomiting, Starting on 12/26/24 at 1509, If BOTH ondansetron (ZOFRAN) and promethazine (PHENERGAN) are ordered use ondansetron first and THEN promethazine IF ondansetron is ineffective. documented in this encounter Care Teams [employer] Regist[employer] Relationship Specialty Start Date End Date Manjeet Griffin MD [address] [facility] [address] [facility] [place] [place] [address] PCP - General Adolescent Medicine 02/21/23 documented as of this encounter
--- OUTSIDE RECORDS SUMMARY | 2025-01-06 08:30 | XMS_ITS ---
Author Organization [employer] [facility] D KIRSTIE Address [address] [place] [address] Care Team Providers Care Packaging Sales Name Role Phone Jolanta Aparicio Primary Care Provider Allergies Allergen (clinical drug ingredient) Drug/Non Drug Allergy documented on EMR Reaction Allergy Type Onset Date Status Penicillin Unknown Drug Allergy Active REASON FOR VISIT [facility] D/C 12/28/2024 Medications Medication SIG (Take, Route, Frequency, Duration) Notes Start Date End Date Status amLODIPine Besylate 5 MG 1 tablet Orally Once a day; Duration: 90 days Active metFORMIN HCl 1000 MG 1 tab(s) orally 2 times a day; Duration: 90 Active Jardiance 25 MG 1 tab(s) orally once a day (in the morning); Duration: 90 days Active Lisinopril 10 MG 1 tablet Orally twice a day; Duration: 30 days 12/08/2024 Active Celecoxib 200 MG 1 cap(s) orally twice a day; Duration: 90 days Not-Taking Famotidine 40 MG 1 tab(s) orally once a day (at bedtime); Duration: 30 days Active hydroCHLOROthiazide 25 MG 1 tab(s) orally every morning; Duration: 30 Active Pravastatin Sodium 80 MG 1 tab(s) orally once a day; Duration: 90 days Not-Taking Glimepiride 2 MG 1 tab(s) orally once a day; Duration: 90 days Active Vitamin C 500 MG 1 tab(s) orally once a day; Duration: 30 day(s) Not-Taking GLUCOMETER WITH LANCETS AND TEST STRIPS DIRECTED *Please review for potential replacement for e-prescription and drug interaction check* 02/17/2014 Active Metoprolol Succinate ER 25 MG 1 tab(s) orally once a day Active Aspirin 81 81 MG 1 tablet Orally Once a day Active Vitamin D3 25 MCG (1000 UT) as directed orally once a day; Duration: 30 day(s) Active Problems Problem Type SNOMED Code ICD Code Onset Dates Problem Status W/U Status Risk Notes Problem Cervical spinal stenosis (36676568) Cervical spinal stenosis (M48.02) Active confirmed Vital Signs Temperature 97.9 degrees Fahrenheit 01/07/20 25 Heart Rate 72 /min 01/06/2025 Blood pressure systolic 124 mm Hg 01/07/20 25 Blood pressure diastolic 60 mm Hg 025 Height 69 in 01/06/2025 Weight 197.6 lbs 01/06/2025 BMI 29.18 kg/m2 01/06/2025 Encounters Encounter Location Date Provider Diagnosis Formerly [facility] P[facility] [address] [facility] [address] [place] [address] 01/06/2025 Jolanta Aparicio Cervical spinal stenosis M48.02 ; Hospital discharge follow-up Z09 ; Tobacco use Z72.0 ; Stage 3 chronic kidney disease, unspecified whether stage 3a or 3b CKD N18.30 and PFO (patent foramen ovale) Q21.12 Assessments Encounter Date Diagnosis (ICD Code) Assessment Notes Treatment Notes Treatment Clinical Notes Section Notes 01/06/2025 Cervical spinal stenosis (ICD-10 - M48.02) Baclofen given for pain since NSAIDS recently stopped, has NS FU in about 2 weeks 01/06/2025 Hospital discharge follow-up (ICD-10 - Z09) 01/06/2025 Tobacco use (ICD-10 - Z72.0) encouraged cessation which he is working on 01/06/2025 Stage 3 chronic kidney disease, unspecified whether stage 3a or 3b CKD (ICD-10 - N18.30) will repeat labs in 6 weeks or so 01/06/2025 PFO (patent foramen ovale) (ICD-10 - Q21.12) no intervention recommended inpatient, no CVA on imaging, continue aspirin Plan Of Treatment Next Appt Details Follow Up: 3 Months,prn, Joyce son: Progress Notes * Forrest QUINTANA: [birth year] (69 yo M)Acc No.[id number]:01/06/2025 HOSP F/U Patient: Forrest CONNELLY Provider: JONATHAN Burch :1955 A ge:69 Y S ex:Male Date:01/06/2025 Address:[facility] [id number] Subjective: * Chief Complaints: * 1 . [facility] Oscar D/C 12/28/2024. * HPI: I ntrim History: Seen today in transition from recent overnight stay at [facility]. He presented initially to the [facility] with severe neck pain that radiated to both arms. Transferred to [facility] to rule out stroke. He reports today that imaging was negative for stroke or acute cardiac concerns but indicates some pretty severe cervical stenosis. He has outpatient follow-up both with cardiology and neurosurgery. Pain is minimal at this point. He has returned to most of his typical activities. He is working on smoking cessation and down to only 4 to 5/day. He did lose his father recently which has certainly been stressful but has had an appropriate response to that. He denies any new concerns. Transition of care visit from hospital D ate of admission to hospital: 0 12/26/2024, D ate of receipt of hospital admission report: 0 12/29/2024,?Date of discharge from hospital: 0 12/28/2024, D ate of receipt of hospital discharge summary: 0 01/11/2025, D ischarge medications reviewed and reconciled from hospital: M edications changed (e.g. discontinued, changed or added). * ROS: R ESPIRATORY: no S hortness of breath. n o C ough. ? C ARDIOLOGY: no D izziness. n o C hest pain. L eg edema y es, b ilateral at the end of the day. C ONSTITUTIONAL: no L oss of appetite. n o W eakness. n o W eight loss. n o F atigue. E NDOCRINOLOGY: Diabetes y es. E NT: Hearing loss y es, w ears bilateral hearing aids. ? G ASTROENTEROLOGY: no N ausea. n o V omiting. n o A bdominal pain. n o D iarrhea. n o C onstipation. n o B lood in stool. M USCULOSKELETAL: Joint stiffness y es. J oint pain y es. n o?Joint swelling. n o L eg cramps. N EUROLOGY: no H eadache. n o I nsomnia. n o M sandra loss. n o D izziness. n o G ait abnormality. P SYCHOLOGY: Reviewed, No Symptoms Reported: Y es. U ROLOGY: Reviewed, No Symptoms Reported: Y es. * Medical History: D M, HTN, HLD, Tobacco use.. normal LDCT 12/23, C-scope 11/2018 with isolated hyperplastic polyp, COVID 19 late April 2020, Wears hearing aids, WILL on CPAP, Negative LHC 05/2023 at [facility], Normal AAA screen 12/23, PFO noted on TTE at [facility] 11/2024. * Surgical History: c olonoscopy - reportedly normal at age 52 , Left Heart Cath, normal 05/2023. * Hospitalization/Major Diagno stic Procedure: c hest pain 2007, Stroke symptoms 11/2024. * Family History: F ather: alive, diagnosed with Heart Disease. M other: , alzheimers, diagnosed with Stroke. P aternal Grand Father: . P aternal Grand Mother: . M aternal Grand Father: , diagnosed with Heart Disease. M aternal Grand Mother: . P aternal uncle: alive. P aternal aunt: alive. M aternal uncle: alive, diagnosed with Stroke. Maternal aunt: alive, diagnosed with Cancer. S iblings: alive. C hildren: alive. 1 brother(s) , 2 sister(s) - healthy. 1 daughter(s) - healthy. . * Social History: S moking A re you a:: current smoker , How often do you smoke cigarettes?: every day, How many cigarettes a day do you smoke?: 11-20. R ecreational drug use: no. Exercise: yes. Home smoke detector use: yes. Caffeine: yes, 3 pepsi daily, 1-2 cups coffee. Living Will: No. Alcohol: no. Sexually active: yes. Travel outside [place]: no. 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 * Medications: T natg Aspirin 81 81 MG Tablet Delayed Release 1 tablet Orally Once a day , Taking Metoprolol Succinate ER 25 MG Tablet Extended Release 24 Hour 1 tab(s) orally once a day , Taking GLUCOMETER WITH LANCETS AND TEST STRIPS DIRECTED , Notes to Pharmacist: *Please review for potential replacement for e-prescription and drug interaction check*, Taking Vitamin D3 25 MCG (1000 UT) Tablet as directed orally once a day , Taking Glimepiride 2 MG Tablet 1 tab(s) orally once a day , Taking hydroCHLOROthiazide 25 MG Tablet 1 tab(s) orally every morning , Taking Famotidine 40 MG Tablet 1 tab(s) orally once a day (at bedtime) , Taking Lisinopril 10 MG Tablet 1 tablet Orally twice a day , Taking Jardiance 25 MG Tablet 1 tab(s) orally once a day (in the morning) , Taking metFORMIN HCl 1000 MG Tablet 1 tab(s) orally 2 times a day , Taking amLODIPine Besylate 5 MG Tablet 1 tablet Orally Once a day , Not-Taking Vitamin C 500 MG Tablet 1 tab(s) orally once a day , Not-Taking Pravastatin Sodium 80 MG Tablet 1 tab(s) orally once a day , Not-Taking Celecoxib 200 MG Capsule 1 cap(s) orally twice a day , Medication List reviewed and reconciled with the patient * Allergies: P enicillin. Objective: * Vitals: N urse: KJ, Pain: 0, Temp: 97.9, RR: 20, HR: 72, BP: 124/60, Ht: 69, Wt: 197.6, BMI:29.18. * Examination: G eneral Examination: General P leasant and Cooperative, NAD on RA,. Chest: n ormal shape and expansion. Heart: R RR, 1/6 systolic murmur mitral area only, normal?S1S2, No JVD, 2(+) symmetric pulses, No edema,. Lungs: L CTAB, No wheezes, crackles or rhonchi, slightly diminished. Abdomen: S oft, NTND, BSNA, No organomegaly or peritoneal signs.. Neurologic Exam: A lert and oriented x 3. Skin: w ithout acute rashes. Peripheral pulses: n ormal (2+) bilaterally. Extremities: n ormal ROM,, no clubbing, no edema, no vascular changes, soft varicose veins. neck s upple,, no thyromegaly,, no lymphadenopathy,. Psych N ormal Mood/Affect. Assessment: * Assessment: 1. C ervical spinal stenosis - M48.02 (Primary) 2 . H ospital discharge follow-up - Z09 3 . T obacco use - Z72.0 4 . S tage 3 chronic kidney disease, unspecified whether stage 3a or 3b CKD - N18.30 5 . P FO (patent foramen ovale) - Q21.12 Plan: * Treatment: 2. T obacco use Clinical Notes: encouraged cessation which he is working on 3. S tage 3 chronic kidney disease, unspecified whether stage 3a or 3b CKD Clinical Notes: will repeat labs in 6 weeks or so 4. P FO (patent foramen ovale) Clinical Notes: no intervention recommended inpatient, no CVA on imaging, continue aspirin ? * Procedure Codes: 1 111F DSCHRG MED/CURRENT MED MERGE, 57740 TRANS CARE MGMT 14 DAY DISCH * Follow Up: 3 Months,prn * * Sign off status: Completed true * Provider: JONATHAN Burch Date: 0 01/06/2025 Generated for Enzo cunningham/Sabrina/[place] on: 0 02/15/2025 09:08 AM EDT History and Physical Notes * HPI (History of Present Illness) Category Sub-Category Detail Notes Category Not es [place] History Transition of care v isit from hospital Date of admission to hospital:: 12/26/2024 Date of receipt of hospital admission re port:: 12/29/2024 Date of discharge from hospital:: 2024 Date of receipt of hospital discharge cheng mmary:: 01/11/2025 Discharge medications review ed and reconciled from hospital:: Medications changed (e.g. discontinued, changed or added) Examination Category Sub-Category Detail Notes Category Not es General Examination Heart: RRR, 1/6 sys tolic murmur mitral area only, normal S1S2, No JVD, 2(+) symmetric pulses, No edema, Lungs: LCTAB, No wheezes, c rackles or rhonchi, slightly diminished Abdomen: Soft, NTND, BSNA, No organomegaly or peritoneal signs. Extremities: normal ROM,, no club lyric, no edema, no vascular changes, soft varicose veins Skin: without acute rashes Neurologic Exam: Alert and oriented x 3 Peripheral pulses: normal (2+) bilatera lly Chest: normal shape and exp ansion neck supple,, no thyromeg alverto,, no lymphadenopathy, General Pleasant and Coopera tive, NAD on RA, Psych Normal Mood/Affect
--- OUTSIDE RECORDS SUMMARY | 2025-01-10 05:22 | XMS_ITS ---
Author Organization [facility] D KIRSTIE Address [address] [place] [address] Care Team Providers Care Chief I Dispatcher Name Role Phone Jolanta Aparicio Primary Care Provider REASON FOR VISIT [place] Medications Medication SIG (Take, Route, Frequency, Duration) Notes Start Date End Date Status Atorvastatin Calcium 40 MG 1 tablet Oral ly Once a day Active Aspirin 81 81 MG 1 tablet Orally Once a day Active Baclofen 10 MG 1 tablet as needed O rally 3 times a day Active Lisinopril 20 MG 1 tablet Orally twic e a day; Duration: 30 days 12/08/2024 Active hydroCHLOROthiazide 25 MG 1 tab(s) orall y every morning; Duration: 30 Active Famotidine 40 MG 1 tab(s) orally once a day (at bedtime); Duration: 30 days Active Jardiance 25 MG 1 tab(s) orally once a day (in the morning); Duration: 90 days Active metFORMIN HCl 1000 MG 1 tab(s) orally 2 times a day; Duration: 90 Active amLODIPine Besylate 5 MG 1 tablet Orally Once a day; Duration: 90 days Active Glimepiride 2 MG 1 tab(s) orally once a day; Duration: 90 days Active Encounters Encounter Location Date Provider Diagnosis [facility] [address] [address] 01/10/2025 Jolanta Aparicio Plan Of Treatment Medication Medication Name Sig Start Date Stop Date Notes Lisinopril 20 MG 1 tablet Orally twic e a day; Duration: 30 days 12/08/2024 Progress Notes * Forrest QUINTANAMichaelOB: [birth year] (69 yo M)Acc No.[id number]:01/10/2025 Patient: Forrest CONNELLY :1955 A ge:69 Y S ex:Male Address:[address] [place] [id number] * Refills Refill Lisinopril Tablet, 20 MG, Orally, 60 Tablet, 1 tablet, twice a day, 30 days, Refills=2 Subjective: * Chief Complaints: * B aptist * Medical History: * Surgical History: * Hospitalization/Major Diagno stic Procedure: * Medications: T akingBaclofen 10 MG Tablet 1 tablet as needed Orally 3 times a day Atorvastatin Calcium 40 MG Tablet 1 tablet Orally Once a day Aspirin 81 81 MG Tablet Delayed Release 1 tablet Orally Once a day Glimepiride 2 MG Tablet 1 tab(s) orally once a day hydroCHLOROthiazide 25 MG Tablet 1 tab(s) orally every morning Famotidine 40 MG Tablet 1 tab(s) orally once a day (at bedtime) Lisinopril 20 MG Tablet 1 tablet Orally twice a day Jardiance 25 MG Tablet 1 tab(s) orally once a day (in the morning) metFORMIN HCl 1000 MG Tablet 1 tab(s) orally 2 times a day amLODIPine Besylate 5 MG Tablet 1 tablet Orally Once a day Taking Baclofen 10 MG Tablet 1 tablet as needed Orally 3 times a day Taking Atorvastatin Calcium 40 MG Tablet 1 tablet Orally Once a day Taking Aspirin 81 81 MG Tablet Delayed Release 1 tablet Orally Once a day Taking Glimepiride 2 MG Tablet 1 tab(s) orally once a day Taking hydroCHLOROthiazide 25 MG Tablet 1 tab(s) orally every morning Taking Famotidine 40 MG Tablet 1 tab(s) orally once a day (at bedtime) Taking Lisinopril 20 MG Tablet 1 tablet Orally twice a day Taking Jardiance 25 MG Tablet 1 tab(s) orally once a day (in the morning) Taking metFORMIN HCl 1000 MG Tablet 1 tab(s) orally 2 times a day Taking amLODIPine Besylate 5 MG Tablet 1 tablet Orally Once a day DiscontinuedMetoprolol Succinate ER 25 MG Tablet Extended Release 24 Hour 1 tab(s) orally once a day GLUCOMETER WITH LANCETS AND TEST STRIPS DIRECTED , Notes to Pharmacist: *Please review for potential replacement for e-prescription and drug interaction check*Vitamin D3 25 MCG (1000 UT) Tablet as directed orally once a day Vitamin C 500 MG Tablet 1 tab(s) orally once a day Pravastatin Sodium 80 MG Tablet 1 tab(s) orally once a day Celecoxib 200 MG Capsule 1 cap(s) orally twice a day Medication List reviewed and reconciled with the patientDiscontinued Metoprolol Succinate ER 25 MG Tablet Extended Release 24 Hour 1 tab(s) orally once a day Discontinued GLUCOMETER WITH LANCETS AND TEST STRIPS DIRECTED , Notes to Pharmacist: *Please review for potential replacement for e-prescription and drug interaction check*Discontinued Vitamin D3 25 MCG (1000 UT) Tablet as directed orally once a day Discontinued Vitamin C 500 MG Tablet 1 tab(s) orally once a day Discontinued Pravastatin Sodium 80 MG Tablet 1 tab(s) orally once a day Discontinued Celecoxib 200 MG Capsule 1 cap(s) orally twice a day Medication List reviewed and reconciled with the patient Objective: * Vitals: * Physical Examination: Assessment: Plan: * Treatment: * Procedure Codes: * true * Date: Generated for Enzo cunningham/Sabrina/eTtonysmkelsey on: 0 02/15/2025 09:08 AM EDT
--- OUTSIDE RECORDS SUMMARY | 2025-01-11 10:30 | XMS_ITS | Encounter Summary ---
Author Organization [facility] Address [address] [place] [address] Care Team Providers Care Gear Lapper Name Role Phone Manjeet Griffin MD Primary Care Provider [phone] Reason for Visit * Reason Comments Neck Pain Encounter Details Date Type Department Care Team (Late st Contact Info) Description 01/11/2025 10:30 AM EDT Office Visit [facility] [address] [place] [address] Tawnya Felipe, BEATA [address] [facility] [address] [place] [address] Cervical spondylosis (Primary Dx); Neck pain, chronic Social History Tobacco Use Types Packs/Day Years Used Date Smoking Tobacco: Every Day Cigarettes 1.5 46 Passive Smoke Exposure: Current Smokeless Tobacco: Never Alcohol Use Standard Drinks/Week Comments Defer 0 [...] or training? Not on file Preferred Language [place]inean 12/27/2024 Sex and Gender Information Value Date Recorded Sex Assigned at Not on file Legal Sex Male 2:21 PM EDT Gender Identity Not on file Sexual Orientation Not on file documented as of this encounter Last Filed Vital Signs Vital Sign Reading Time Taken Comments Blood Pressure - - Pulse - - Temperature 36 C (96.8 F) 01/11/2025 10:37 AM EDT Respiratory Rate - - Oxygen Saturation - - Inhaled Oxygen Concentration - - Weight 90.6 kg (199 lb 12.8 oz) 025 10:37 AM EDT Height 175.3 cm (5' 9.02 ) 01/11/2025 1 0:37 AM EDT Body Mass Index 29.49 01/11/2025 10:37 AM EDT documented in this encounter Progress Notes * Tawnya Felipe PA-C - 01/11/2025 10:30 AM EDT Images from the original note were not included. Forrest Renner 1955 [id number] 01/11/2025 Chief Complaint Patient presents with Neck Pain Neck Pain Pertinent negatives include no chest pain, fever, headaches, numbness, photophobia, trouble swallowing or weakness. Mr. 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 His symptoms began on 727 when he awoke with neck pain and stiffness. This pain would radiate intothe right shoulder and neck. He treated with Tylenol and a hot shower but unfortunately developed pain that radiated into the left shoulder. He also noticed pain that would radiate into his left anterior chest. He was evaluated in the hospital on 12/28/2024 for concern of a TIA, his workup included a cervical MRI which revealed multilevel degenerative disc disease. He is here for hospital follow-up. He reports that overall he is better. No significant neck pain or shoulder pain. No numbness tingling pain or weakness radiating to the arms. Chronic Illnesses: Past Medical History: No date: Cervical disc disorder No date: Chronic kidney disease No date: Diabetes mellitus No date: Hyperlipidemia No date: Sleep apnea Past Surgical History: Procedure Laterality Date CARDIAC CATHETERIZATION Left 05/30/2023 Procedure: Cardiac Catheterization/Vascular Study; Surgeon: Julio Khanna III, MD; Location: [facility]; Service: Cardiology; Laterality: Left; COLONOSCOPY Allergies Allergen Reactions Penicillins Hives Current Outpatient Medications: amLODIPine (NORVASC) 5 MG tablet, Take 1 tablet by mouth Daily., Disp: , Rfl: aspirin 81 MG chewable tablet, Chew 1 tablet Daily., Disp: 90 tablet, Rfl: 3 atorvastatin (LIPITOR) 40 MG tablet, Take 1 tablet by mouth Every Night., Disp: 90 tablet, Rfl: 3 baclofen (LIORESAL) 10 MG tablet, Take 1 tablet by mouth 3 (Three) Times a Day As Needed for MuscleSpasms., Disp: 90 tablet, Rfl: 0 Blood Glucose Monitoring Suppl (Blood Glucose Monitor System) w/Device kit, Use to test blood glucose 4 times daily, Disp: 1 each, Rfl: 0 glimepiride (AMARYL) 2 MG tablet, Take 1 tablet by mouth Every Morning Before Breakfast., Disp: , Rfl: glucose blood (True Metrix Blood Glucose Test) test strip, Use as directed to test blood glucose 4 times daily, Disp: 100 each, Rfl: 0 hydroCHLOROthiazide 25 MG tablet, Take 1 tablet by mouth Daily., Disp: , Rfl: Jardiance 25 MG tablet tablet, Take 1 tablet by mouth Daily., Disp: , Rfl: Lancets 33G misc, Use as directed to test blood glucose 4 times daily, Disp: 100 each, Rfl: 0 lisinopril (PRINIVIL,ZESTRIL) 40 MG tablet, Take 0.5 tablets by mouth 2 (Two) Times a Day., Disp: ,Rfl: metFORMIN (GLUCOPHAGE) 1000 MG tablet, Take 1 tablet by mouth 2 (Two) Times a Day With Meals., Disp: , Rfl: nicotine (NICODERM CQ) 21 MG/24HR patch, Place 1 patch on the skin as directed by provider Daily., Disp: 28 each, Rfl: 1 Social History Socioeconomic History Marital status: Tobacco Use Smoking status: Every Day Current packs/day: 1.50 Average packs/day: 1.5 packs/day for 46.0 years (69.0 ttl pk-yrs) Types: Cigarettes Passive exposure: Current Smokeless tobacco: Never Vaping Use Vaping status: Never Used Substance and Sexual Activity Alcohol use: Defer Drug use: Not Currently Sexual activity: Yes Partners: Female family history includes Hypertension in his father. Review of Systems Constitutional: Negative for activity change, appetite change, chills, diaphoresis, fatigue, fever and unexpected weight change. HENT: Negative for congestion, dental problem, drooling, ear discharge, ear pain, facial swelling, hearing loss, mouth sores, nosebleeds, postnasal drip, rhinorrhea, sinus pressure, sinus pain, sneezing, sore throat, tinnitus, trouble swallowing and voice change. Eyes: Negative for photophobia, pain, discharge, redness, itching and visual disturbance. Respiratory: Negative for apnea, cough, choking, chest tightness, shortness of breath, wheezing andstridor. Cardiovascular: Negative for chest pain, palpitations and leg swelling. Gastrointestinal: Negative for abdominal distention, abdominal pain, anal bleeding, blood in stool,constipation, diarrhea, nausea, rectal pain and vomiting. Endocrine: Negative for cold intolerance, heat intolerance, polydipsia, polyphagia and polyuria. Genitourinary: Negative for decreased urine volume, difficulty urinating, dysuria, enuresis, flank pain, frequency, genital sores, hematuria, penile discharge, penile pain, penile swelling, scrotal swelling, testicular pain and urgency. Musculoskeletal: Positive for neck pain. Negative for arthralgias, back pain, gait problem, joint swelling, myalgias and neck stiffness. Skin: Negative for color change, pallor, rash and wound. Allergic/Immunologic: Negative for environmental allergies, food allergies and immunocompromised state. Neurological: Negative for dizziness, tremors, seizures, syncope, facial asymmetry, speech difficulty, weakness, light-headedness, numbness and headaches. Hematological: Negative for adenopathy. Does not bruise/bleed easily. Psychiatric/Behavioral: Negative for agitation, behavioral problems, confusion, decreased concentration, dysphoric mood, hallucinations, self-injury, sleep disturbance and suicidal ideas. The patientis not nervous/anxious and is not hyperactive. Gait & Balance Assessment : Risk assessment for falls. Fall precautions. universal fall precautions, such as; Using gait aids a cane, walker at the appropriate height at all times for ambulation or if necessary a wheelchair Removing all area rugs and coffee tables to create a safe environment at home Ensure clean, dry floors Wearing supportive footwear and properly fitting clothing Ensure bed/chair is appropriate height and patient's feet can touch the floor Using a shower transfer bench Using walk-in shower and having shower safety bars installed Ensure proper lighting, minimize glare Have nightlights operational and in use Participation in an exercise program for gait training, balance training and strength Avoid carrying laundry up and down steps Ensure proper compliance and organization of medications to avoid errors Avoid use of over the counter sedatives and alcohol consumption Ensure easy access to call couch, glasses, TV control, telephone Ensure glasses/hearing aids are in use or close by (on top of night table) Forrest Renner reports that he has been smoking cigarettes. He has a 69 pack-year smoking history. He has been exposed to tobacco smoke. He has never used smokeless tobacco. Body mass index is 29.49 kg/m??. Physical Examination: Temp 96.8 ??F (36 ??C) (Infrared) Ht 175.3 cm (69.02 ) Wt 90.6 kg (199 lb 12.8 oz) BMI 29.49 kg/m?? HEENT-wnl Lungs-No wheezing or SOB Patient is awake, alert and oriented. Face symmetric. 5/5 in the extremities. Sensation intact. Reflexes are not elicited. Gait normal, steady, balance intact. No Tse's. Radiological Data Review: All neurological imaging studies were independently reviewed. Cervical MRI, 12/27/2024 reveals Cervical spondylosis at C3-4, C4-5 C5-6 and C6-7. Assessment and Plan: Diagnoses and all orders for this visit: 1. Cervical spondylosis (Primary) 2. Neck pain, chronic Mr. Renner is a 69-year-old gentleman that is here for hospital follow-up for TIA and exacerbationof neck pain. The cervical MRI shows multilevel cervical spondylosis. At the present time he has had resolution of his neck pain and no shoulder pain. 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 He is aware of changes in his symptoms and weakness in his arms if any thatwere to do occur he is to give us a call in the office. He is in agreement with this plan. At the present time no plans for intervention or follow-up. Any copied data from previous notes included in the (1) HPI, (2) PE, (3) MDM and/or assessment and plan has been reviewed and is accurate as of this date. Tawnya Felipe, CATERINA PCP: Manjeet Griffin MD documented in this encounter Plan of Treatment Upcoming Encounters Date Type Department Care Team (Late st Contact Info) Description 02/18/2025 11:45 AM EDT Office Visit [facility] [address] [facility] [address] [place] [id number] Hortencia Nagy MD [address] [facility] [address] [place] [address] documented as of this encounter Visit Diagnoses Diagnosis Cervical spondylosis- Primary Cervical spondylosis without myelopathy Neck pain, chronic documented in this encounter Care Teams Gear Lapper Relationship Specialty Start Date End Date Manjeet Griffin MD [address] [facility] [address] [place] [address] PCP - General Adolescent Medicine 02/21/23 documented as of this encounter
--- OUTSIDE RECORDS SUMMARY | 2025-01-12 05:15 | XMS_ITS ---
Author Organization [facility] Address [address] [place] [address] [place] [address] Care Team Providers Care Ethernet Network Architect Name Role Phone Jolanta Aparicio Primary Care Provider REASON FOR VISIT 6 wk f/u- wellness , labs Encounters Encounter Location Date Provider Diagnosis [address] [address] 01/12/2025 Jolanta Aparicio Plan Of Treatment No Information Progress Notes * Oliiva QUINTANAdarius PeraltaeDOB: [birth year] (69 yo M)Acc No.[id number]:01/12/2025 Progress Notes Patient: Forrest CONNELLY Provider: JONATHAN Burch :1955 A ge:69 Y S ex:Male Date:01/12/2025 Address:[id number] Subjective: * Chief Complaints: * 1 . 6 wk f/u- wellness , labs. * Medical History: Objective: * Vitals: Assessment: Plan: * Treatment: * * Electronic signature of Sulema Aparicio APRN on 02/15/2025 at 09:08 AM EDT Sign off status: Pending * Provider: JONATHAN Burch Date: 0 01/12/2025 Generated for Tuani ng/Faxing/eTransmitting on: 0 02/15/2025 09:08 AM EDT
--- OUTSIDE RECORDS SUMMARY | 2025-02-13 13:06 | XMS_ITS ---
Author Organization [facility] Address [address] [facility] [address] [facility] [address] [place] [address] Care Team Providers Care Insulation Board Calender Operator Name Role Phone Jolanta Aparicio Primary Care Provider [phone] REASON FOR VISIT labs Problems Problem Type SNOMED Code ICD Code Onset Dates Problem Status W/U Status Risk Notes Problem Diabetic renal disease (672422840) Type 2 diabetes mellitus with diabetic chronic kidney disease (E11.22) Active confirmed Problem Chronic kidney disease stage 3 (disorder) (224270665) Chronic kidney disease, stage 3 unspecified (N18.30) Active confirmed Encounters Encounter Location Date Provider Diagnosis [facility] [address] [place] [address] [facility] [address] [place] [address] 02/13/2025 Jolanta Aparicio Type 2 diabetes mellitus with diabetic chronic kidney disease E11.22 and Chronic kidney disease, stage 3 unspecified N18.30 Assessments Encounter Date Diagnosis (ICD Code) Assessment Notes Treatment Notes Treatment Clinical Notes Section Notes 02/13/2025 Type 2 diabetes mellitus with diabetic chronic kidney disease (ICD-10 - E11.22) 02/13/2025 Chronic kidney disease, stage 3 unspecified (ICD-10 - N18.30) Plan Of Treatment Pending Test Test Name Order Date M-Basic Metabolic Panel 02/13/2025 Progress Notes * Forrest QUINTANAOB: [birth year] (69 yo M)Acc No.[id number]:02/13/2025 Patient: Vonda Forrest HARDY :1955 A ge:69 Y S ex:Male Address:[address] [place] [address], [address] Subjective: * Chief Complaints: * L abs * Medical History: * Surgical History: * Hospitalization/Major Diagno stic Procedure: * Medications: Objective: * Vitals: * Physical Examination: Assessment: * Assessment: 1. T ype 2 diabetes mellitus with diabetic chronic kidney disease - E11.22 (Primary) 2 . C hronic kidney disease, stage 3 unspecified - N18.30 Plan: * Treatment: 2. C hronic kidney disease, stage 3 unspecified L AB: M-Basic Metabolic Panel * Procedure Codes: * true * Date: Generated for Tuani marisa/Sabrina/eTransmitting on: 0 02/15/2025 09:09 AM EDT
--- OUTSIDE RECORDS SUMMARY | 2025-02-15 09:08 | XMS_ITS | Encounter Summary ---
[facility] Organization [facility] Address [address] [place] [address] Care Team Providers Care Supervisor Purification Name Role Phone Manjeet Griffin MD Primary Care Provider [phone] Encounter Details Date Type Department Care Team (Latest Contact Info) Description 12/26/2024 Travel Social History Tobacco Use Types Packs/Day Years Used Date Smoking Tobacco: Every Day Cigarettes 1.5 46 Passive Smoke Exposure: Never Smokeless Tobacco: Never Alcohol Use Standard Drinks/Week [...] or training? Not on file Preferred Language Italian 12/27/2024 Sex and Gender Information Value Date Recorded Sex Assigned at Not on file Legal Sex Male 2:21 PM EDT Gender Identity Not on file Sexual Orientation Not on file documented as of this encounter Functional Status * Question Answer [...] 1:00 PM EDT Sylvia Chapman RN * [place] Suicide Severity Rating Scale (Screener/Recent Self-Report) Question Answer Date of Assessment Author 6. Suicidal Behavior (Lifetime) No 1:00 PM EDT Sylvia Chapman RN documented as of this encounter Plan of Treatment Upcoming Encounters Date Type Department Care Team (Late st Contact Info) Description 02/18/2025 11:45 AM EDT Office Visit [facility] [address] [place] [address] Hortencia Nagy MD [address] [place] [address] documented as of this encounter Visit Diagnoses Not on filedocumented in this encounter Care Teams Supervisor Purification Relationship Specialty Start Date End Date Manjeet Griffin MD [address] [place] [address] [place] [address] PCP - General Adolescent Medicine 02/21/23 documented as of this encounter
--- OUTSIDE RECORDS SUMMARY | 2025-02-15 09:08 | XMS_ITS | Patient Health Record ---
Author Organization [facility] KIRSTIE Address [address] [place] [address] Care Team Providers Care Manager Strategic Name Role Phone Jolanta Aparicio Primary Care Provider Migration, Provider Unavailable Unavailable Allergies Allergen (clinical drug ingredient) Drug/Non Drug Allergy documented on EMR Reaction Allergy Type Onset Date Status Penicillin Unknown Drug Allergy Active Results Component Value Reference Range Notes QUANTIFERON(R)-TB GOLD PLUS, 1 TUBE (47583) Reviewed date:05/21/2024 08:22:43 AM Interpretation: Performing Lab:NEYDA, [facility] Knqv2503 [facility] Jonah Espinal Notes/Report: NON-FASTING QUANTIFERON(R)-TB GOLD PLUS, [...] T-lymphocytes. For additional information, please refer to https://education.[employer].Qnovo/faq/OHL227 (This link is being provided for informational/ educational purposes only.) HEMOGLOBIN A1c (496) Reviewed date:12/08/2024 08:41:28 AM Interpretation: Performing Lab:NEYDA [facility] [address], [place] Jonah Espinal Notes/Report: NON-FASTING; NON-FASTING; NON-FASTING; NON-FASTING; [...] Reviewed date:12/08/2024 08:41:28 AM Interpretation: Performing Lab:NEYDA [facility] [address], [place] Jonah Espinal Notes/Report: NON-FASTING; NON-FASTING; NON-FASTING; NON-FASTING; NON-FAST FASTING:YES FASTING: YES PSA, TOTAL 0.42 < OR = 4.00 ng/mL The total PSA value from this assay system is standardized against the WHO standard. The test result will be approximately 20% lower when compared to the equimolar-standardized total PSA (Kemal Cocoa). Comparison of serial PSA results should be interpreted with this fact in mind. This test was performed using the Siemens chemiluminescent method. Values obtained from different assay methods cannot be used interchangeably. PSA levels, regardless of value, should not be interpreted as absolute evidence of the presence or absence of disease. LIPID PANEL, STANDARD (7600) Reviewed date:12/08/2024 08:41:27 AM Interpretation: Performing Lab:NEYDA [facility] [address], [place]gtqTX[address] Jonah Espinal Notes/Report: NON-FASTING; NON-FASTING; NON-FASTING; NON-FASTING; [...] factors. LDL-C is now calculated using the Adolfo-Neeru calculation, which is a validated novel method providing better accuracy than the Friedewald equation in the estimation of LDL-C. Adolfo SS et al. ALEXEY. 2013;310(19): 4685-0886 (http://education.[employer].Qnovo/faq/ARV344) CHOL/HDLC RATIO 3.7 <5.0 (calc) NON HDL CHOLESTEROL 103 <130 mg/dL (calc) For patients with diabetes plus 1 major ASCVD risk factor, treating to a non-HDL-C goal of <100 mg/dL (LDL-C of <70 mg/dL) is considered a therapeutic option. IRON, TIBC AND FERRITIN DEMONDElyssa Riki (5616) Reviewed date:12/08/2024 08:41:27 AM Interpretation: Performing Lab:NEYDA, [facility] [address]is5[address] [facility] HospitalBumwHA[address] Jonah Espinal Notes/Report: NON-FASTING; NON-FASTING; NON-FASTING; NON-FASTING; [...] date:12/17/2024 12:35:03 PM Interpretation: Performing Lab: Notes/Report: CBC (INCLUDES DIFF/PLT) (639 9) Reviewed date:12/08/2024 08:41:28 AM Interpretation: Performing Lab:NEYDA [facility] [address] [facility] HospitalBkcnOL[address] Jonah Espinal Notes/Report: NON-FASTING; NON-FASTING; NON-FASTING; NON-FASTING; [...] MPV 10.3 7.5-12.5 fL ABSOLUTE NEUTROPHILS 5305 4103-2660 cells/uL ABSOLUTE LYMPHOCYTES 3132 140-6315 cells/uL ABSOLUTE MONOCYTES 697 200-950 cells/uL ABSOLUTE EOSINOPHILS 369 15-500 cells/uL ABSOLUTE BASOPHILS 74 0-200 cells/uL NEUTROPHILS 64.7 LYMPHOCYTES 21.4 MONOCYTES 8.5 EOSINOPHILS 4.5 BASOPHILS 0.9 COMPREHENSIVE METABOLIC PANE L (64041) Reviewed date:12/08/2024 08:41:28 AM Interpretation: Performing Lab:NEYDA [facility] [address] [facility] HospitalTpqwJD[address] Jonah Espinal Notes/Report: NON-FASTING; NON-FASTING; NON-FASTING; NON-FASTING; [...] 15 10-35 U/L ALT 14 9-46 U/L Medications Medication SIG (Take, Route, Frequency, Duration) Notes Start Date End Date Status Accu-Chek Guide Test - check sugar up to 4 times a day In Vitro DX: E11.9 02/01/2025 Active Baclofen 10 MG 1 tablet as needed Orally 3 times a day; Duration: 30 days Active Glimepiride 2 MG 1 tab(s) orally once a day; Duration: 90 days Active Famotidine 40 MG 1 tab(s) orally once a day (at bedtime); Duration: 30 days Active Jardiance 25 MG 1 tab(s) orally once a day (in the morning); Duration: 90 days Active metFORMIN HCl 1000 MG 1 tab(s) orally 2 times a day; Duration: 90 Active Atorvastatin Calcium 40 MG 1 tablet Oral ly Once a day Active amLODIPine Besylate 5 MG 1 tablet Orally Once a day; Duration: 90 days Active Lisinopril 20 MG 1 tablet Orally twic e a day; Duration: 30 days 12/08/2024 Active hydroCHLOROthiazide 25 MG 1 tab(s) orall y every morning; Duration: 30 Active Aspirin 81 81 MG 1 tablet Orally Once a day Active Immunizations Vaccine Route Administration Date Status Comme nts Arexvy IM Intramuscular 06/04/2023 Administered FLULAVAL IM Intramuscular 03/12/2019 Administered Fluzone High Dose IM Intramuscular 04/06/2021 Administered Influenza-Fluzone 3+years (NON-MEDICARE) IM Intramuscular 04/14/2018 Administered Prevnar PCV-20 (Pneumococcal conjugate 20) IM Intramuscular 07/01/2022 Administered SHINGRIX IM Intramuscular 07/01/2022 Administered SHINGRIX IM Intramuscular 06/04/2023 Administered Problems Problem Type SNOMED Code ICD Code Onset Dates Problem Status W/U Status Risk Notes Problem Diabetic renal disease (864827189) Type 2 diabetes mellitus with diabetic chronic kidney disease (E11.22) Active confirmed Problem Hyperlipidemia (74049872) Hyperlipidemia, unspecified (E78.5) Active confirmed Problem Tobacco use (155909666) Tobacco use (Z72.0) Active confirmed Problem Essential hypertension (21334651) Essential hypertension (I10) Active confirmed Problem Edema of right lower extremity (906789436) Edema of right lower extremity (R60.0) Active confirmed Problem Pulmonary nodule (584580560) Pulmonary nodule (R91.1) Active confirmed Problem 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 Problem Type II diabetes mellitus without complication (485255390) Diabetes mellitus without complication (E11.9) Active confirmed Problem Allergic rhinitis caused by pollen (80510666) Seasonal allergic rhinitis due to pollen (J30.1) Active confirmed Problem Obstructive sleep apnea syndrome (24570646) WILL on CPAP (G47.33) Active confirmed Problem Varicose veins of both lower limbs (36067100004101920 ) Varicose veins of both lower extremities (I83.93) Active confirmed Problem Ex-tobacco user (finding) (015956894) Personal history of tobacco use (Z87.891) Active confirmed Problem Does use hearing aid (finding) (107078732) Hearing aid worn (Z97.4) Active confirmed Problem Anemia (615980571) Mild anemia (D64.9) Active confirmed Problem Chronic kidney disease stage 3 (disorder) (858449382) Chronic kidney disease, stage 3 unspecified (N18.30) Active confirmed Problem Sensorineural hearing loss (86056404) Perceived hearing loss (H90.5) Active confirmed Problem Acute tear of meniscus of right knee (disorder) (99651317922236069 ) Tear of meniscus of right knee as current injury, unspecified meniscus, unspecified tear type, subsequent encounter (S83.206D) Active confirmed Problem Cervical spinal stenosis (64394453) Cervical spinal stenosis (M48.02) Active confirmed Vital Signs Heart Rate 72 /min 01/06/2025 Temperature 97.9 degrees Fahrenheit 01/06/2025 Blood pressure diastolic 60 mm Hg 01/06/2025 Height 69 in 01/06/2025 Blood pressure systolic 124 mm Hg 01/06/2025 Weight 197.6 lbs 01/06/2025 BMI 29.18 kg/m2 01/06/2025 Encounters Encounter Location Date Provider Diagnosis [facility] [address] [place], [place] [address] 09/04/2024 Provider Migration Diabetes mellitus without complication E11.9 [facility] [address] [facility] [address] [place], [place] [address] 02/15/2025 Jolanta Alessandra [facility] [place] [address] [address] 10/13/2024 Jolanta Aparicio Essential hypertension I10 ; 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 (commercial 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 Z02.4 ; Hyperlipidemia, unspecified E78.5 ; Diabetes mellitus without complication E11.9 ; WILL on CPAP G47.33 ; Mild anemia D64.9 ; Screening PSA (prostate specific antigen) Z12.5 and Personal history of tobacco use Z87.891 [facility] [address] [facility] [address] [place], [place] [address] 01/06/2025 Jolantameaghan RicciAlessandra Cervical spinal stenosis M48.02 ; Hospital discharge follow-up Z09 ; Tobacco use Z72.0 ; Stage 3 chronic kidney disease, unspecified whether stage 3a or 3b CKD N18.30 and PFO (patent foramen ovale) Q21.12 [facility] [place] [address] [address] 05/17/2024 Jolanta Alessandra Screening for tuberculosis Z11.1 [facility] [place] [address] [address] 08/26/2024 Jolanta Alessandra [facility] [place] [address] [place], [place] [address] 10/13/2024 Jolanta Alessandra [facility] [address] [address] 11/25/2024 Jolanta Alessandra [facility] [place] [address] [place] [address] 11/30/2024 Jolanta Aparicio Tear of meniscus of right knee as current injury, unspecified meniscus, unspecified tear type, subsequent encounter S83.206D [facility] [address] [place] [address] 12/02/2024 Jolanta Aparicio Personal history of tobacco use Z87.891 [facility] [place] [address] [place] [address] 12/08/2024 Jolanta Alessandra [facility] [address] [place] [address] 12/28/2024 Jolanta Alessandra [facility] [address] [place] [address] 12/28/2024 Jolanta Alessandra [facility] [address] [place] [address] 01/06/2025 Jolanta Alessandra [facility] [place] [address] [place] [address] 01/10/2025 Jolanta Alessandra [facility] [place] [address] [place] [address] 02/01/2025 Jolanta Alessandra [facility] [place] [address] [place] [address] 02/04/2025 Jolanta Alessandra [facility] [address] [place] [address] 02/13/2025 Jolantameaghan RicciAlessandra Type 2 diabetes mellitus with diabetic chronic [...] history of tobacco use (ICD-10 - Z87.891) 01/06/2025 Cervical spinal stenosis (ICD-10 - M48.02) Baclofen given for pain since NSAIDS recently stopped, has NS FU in about 2 weeks 01/06/2025 Hospital discharge follow-up (ICD-10 - Z09) 02/13/2025 Type 2 diabetes mellitus with diabetic chronic kidney disease (ICD-10 - E11.22) 02/13/2025 Chronic kidney disease, stage 3 unspecified (ICD-10 - N18.30) 01/06/2025 Tobacco use (ICD-10 - Z72.0) encouraged cessation which he is working on 10/13/2024 Hyperlipidemia, unspecified (ICD-10 - E78.5) continue statin therapy 10/13/2024 Diabetes mellitus without complication (ICD-10 - E11.9) A1C < 8, tolerating medication regimen. fasting labs again in 3-4 months recommended 01/06/2025 Stage 3 chronic kidney disease, unspecified whether stage 3a or 3b CKD (ICD-10 - N18.30) will repeat labs in 6 weeks or so 01/06/2025 PFO (patent foramen ovale) (ICD-10 - Q21.12) no intervention recommended inpatient, no CVA on imaging, continue aspirin 10/13/2024 WILL on CPAP (ICD-10 - G47.33) tolerating well and symptoms improved, continue FU with [facility] sleep clinic 10/13/2024 Mild anemia (ICD-10 [...] C-CBC 12/01/2018 C-CBC 02/08/2014 C-CMP 02/08/2014 C-CMP 12/01/2018 C-CMP 12/22/2019 C-CMP 06/21/2020 C-CMP 01/14/2018 C-CMP 06/04/2017 C-LIPID PANEL 06/04/2017 C-LIPID PANEL 01/14/2018 C-LIPID PANEL 12/22/2019 C-LIPID PANEL 12/01/2018 C-LIPID PANEL 02/08/2014 C-TSH 02/08/2014 C-HGBA1C 12/22/2019 C-HGBA1C 12/01/2018 C-HGBA1C 06/21/2020 C-HGBA1C 06/04/2017 C-HGBA1C 02/08/2014 C-HGBA1C 01/14/2018 Lipid Panel 07/01/2022 M-Complete Blood Count Auto Diff 024 M-Comprehensive Metabolic Panel 06/04/19 M-Basic Metabolic Panel 08/02/2020 M-Basic Metabolic Panel 02/13/2025 M-Hemoglobin A1C 06/04/2023 M-Ferritin 06/04/2023 M-Lipid Panel 06/04/2023 M-Vitamin B12 06/04/2023 M-Folate 06/04/2023 M-Iron and TIBC 06/04/2023 M-Microalb/Creat Ratio, Randm Ur 024 M-COVID WITH RESPIRATORY PANEL 0 Comprehensive Metabolic Panel (CMP) 06/04 Hemoglobin A1C 07/01/2022 FERRITIN (457) 10/13/2024 Insurance Providers Payer Name Payer Address Payer Phone Subscriber Number Group Number Insured Name Patient Relationship to Insured Coverage Start Date Coverage End Date [facility] [address] [place] [address] [id number] Forrest Renner Self - patient is the insured Medical (General) History Medical History History ICD Code DM HTN HLD Tobacco use.. normal LDCT 12/23 C-scope 11/2018 with isolated hyperplasti c polyp COVID 19 late April 2020 wears hearing aids WILL on CPAP Negative LHC 05/2023 at [facility] Normal AAA screen 12/23 PFO noted on TTE at [facility] [place] 11/2024 Surgical History Surgery Date(Month/Year) colonoscopy - reportedly normal at age 5 2 Left Heart Cath, normal 05/2023 Hospitalization History Reason Date(Month/Year) Stroke symptoms 11/2024 chest pain 2008
--- OUTSIDE RECORDS SUMMARY | 2025-02-15 09:08 | XMS_ITS | Encounter Summary ---
Author Organization [facility] Address [address] [place] [address] Care Team Providers Care Flying Instructor Name Role Phone Manjeet Griffin MD Primary Care Provider [phone] Encounter Details Date Type Department Care Team (Latest Contact Info) Description 01/11/2025 Travel Social History Tobacco Use Types Packs/Day [...] or training? Not on file Preferred Language [place] Citizen 12/27/2024 Sex and Gender Information Value Date Recorded Sex Assigned at Not on file Legal Sex Male 2:21 PM EDT Gender Identity Not on file Sexual Orientation Not on file documented as of this encounter Plan of Treatment Upcoming Encounters Date Type Department Care Team (Late st Contact Info) Description 02/18/2025 11:45 AM EDT Office Visit [facility] [address] [place] [address] Hortencia Nagy MD [address] [address] [place] [address] documented as of this encounter Visit Diagnoses Not on filedocumented in this encounter Care Teams Flying Instructor Relationship Specialty Start Date End Date Manjeet Griffin MD [address] [facility] [address] [place] [address] PCP - General Adolescent Medicine 02/21/23 documented as of this encounter
--- OUTSIDE RECORDS SUMMARY | 2025-02-15 09:09 | XMS_ITS | Clinical Summary ---
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 Name Role Phone Manjeet Griffin MD Primary Care Provider [phone] Allergies Active Allergy Reactions Criticality Noted Date Comments Penicillins Hives Medium 02/21/2023 Medications Blood Glucose Monitoring Suppl (Blood Glucose Monitor System) w/Device kit Use to test blood glucose 4 times daily 1 each 12/27/2024 4:16 PM EDT 12/27/2024 Active glucose blood (True Metrix Blood Glucose Test) test strip Use as directed to test blood glucose 4 times daily 100 each 12/27/2024 4:16 PM EDT 12/27/2024 Active Lancets 33G misc Use as directed to test blood glucose 4 times daily 100 each 12/27/2024 4:16 PM EDT 12/27/2024 Active aspirin 81 MG chewable tablet Chew 1 tablet Daily. 90 tablet 3 12/29/2024 Active glimepiride (AMARYL) 2 MG tablet Take 1 tablet by mouth Every Morning Before Breakfast. 12/28/2024 Active metFORMIN (GLUCOPHAGE) 1000 MG tablet Take 1 tablet by mouth 2 (Two) Times a Day With Meals. 12/28/2024 Active atorvastatin (LIPITOR) 40 MG tablet Take 1 tablet by mouth Every Night. 90 tablet 3 12/28/2024 Active lisinopril (PRINIVIL,ZESTR IL) 40 MG tablet Take 0.5 tablets by mouth 2 (Two) Times a Day. 12/28/2024 Active amLODIPine (NORVASC) 5 MG tablet Take 1 tablet by mouth Daily. 12/28/2024 Active hydroCHLOROthia zide 25 MG tablet Take 1 tablet by mouth Daily. 12/28/2024 Active baclofen (LIORESAL) 10 MG tablet Take 1 tablet by mouth 3 (Three) Times a Day As Needed for Muscle Spasms. 90 tablet 12/28/2024 Active nicotine (NICODERM CQ) 21 MG/24HR patch Place 1 patch on the skin as directed by provider Daily. 28 each 1 12/28/2024 Active Jardiance 25 MG tablet tablet Take 1 tablet by mouth Daily. 01/04/2025 Active Active Problems Problem Noted Date Diagnosed Date Vision changes 12/26/2024 Chronic chest pain with high risk for CAD 2022 Abnormal stress test 04/30/2023 Bradycardia, sinus 02/21/2023 Chronic chest pain with low to moderate risk for CAD 02/21/2023 SOB (shortness of breath) 02/21/2023 WILL (obstructive sleep apnea) 02/21/2023 Encounters Date Type Department Care Team Description 01/11/2025 10:30 AM EDT Office Visit [facility] [address] [facility] [address] [place] [id number] Tawnya Felipe, STEPHENC Cervical spondylosis (Primary Dx); Neck pain, chronic 01/11/2025 Travel 12/26/2024 12:05 PM EDT - 12/28/2024 4:48 PM EDT Hospital Encounter [facility] [address] [place] [address] Isaac Steele MD Hamilton, DO Levon Tavarez Gabriela Kirk, MD Scott, Emma L, MD Marchik, Christine S. PA-C Cervical spondylosis with radiculopathy (Primary Dx); PFO (patent foramen ovale) Discharge Disposition: Home or Self Care 12/26/2024 Travel from Last 3 Months Immunizations Immunization Administration Dates Next Due 31-influenza [...] or training? Not on file Preferred Language Greenlandic 12/27/2024 Sex and Gender Information Value Date Recorded Sex Assigned at Not on file Legal Sex Male 2:21 PM EDT Gender Identity Not on file Sexual Orientation Not on file Last Filed Vital Signs Vital Sign Reading Time Taken Comments Blood Pressure 144/67 12/28/2024 3:10 PM EDT Pulse 67 12/28/2024 3:10 PM EDT Temperature 36 C (96.8 F) 01/11/2025 10:37 AM EDT Respiratory Rate 18 12/28/2024 3:10 PM EDT Oxygen Saturation 96% 12/28/2024 3:10 PM EDT Inhaled Oxygen Concentration - - Weight 90.6 kg (199 lb 12.8 oz) 025 10:37 AM EDT Height 175.3 cm (5' 9.02 ) 01/11/2025 1 0:37 AM EDT Body Mass Index 29.49 01/11/2025 10:37 AM EDT Plan of Treatment Upcoming Encounters Date Type Department Care Team (Late st Contact Info) Description 02/18/2025 11:45 AM EDT Office Visit [facility] [address] [place] [address] Hortencia Nagy MD [address] [facility] [address] [place] [address] Health Maintenance Due Date Last Done Comments DIABETIC EYE EXAM 09/11/1965 DIABETIC FOOT EXAM 09/11/1965 URINE MICROALBUMIN-CREATININ E RATIO (uACR) 09/11/1965 Pneumococcal Vaccine 50+ (1 of 2 - PCV) 09/11/1974 TDAP/TD VACCINES (1 - Tdap) 09/11/1974 COLOGUARD 09/11/2000 COLON CANCER SCREENING 5 YEA R SIGMOIDOSCOPY 09/11/2000 COLONOSCOPY 09/11/2000 COLORECTAL CANCER SCREENING 09/11/2000 CT COLONOGRAPHY 09/11/2000 FECAL OCCULT BLOOD TEST 09/11/2000 FIT Testing (1 year) 09/11/2000 LUNG CANCER SCREENING 09/11/2005 AAA SCREEN ONCE 09/11/2020 ANNUAL PHYSICAL 02/21/2023 HEPATITIS C SCREENING 02/21/2023 ZOSTER VACCINE (2 of 2) 07/30/2023 06/04/2023 INFLUENZA VACCINE 12/31/2024 03/01/2023, , 03/12/2019, Additional history exists COVID-19 Vaccine (4 - 2024-2 6 season) 2025 03/08/2021, 07/21/2020, 06/22/2020 HEMOGLOBIN A1C 06/29/2025 12/27/2024, 05/30/2023 Procedures Procedure Name Priority Date/Time Associated Diagnosis Comments POCT GLUCOSE FINGERSTICK Routine 12/28/2024 12:06 PM EDT CBC AND DIFFERENTIAL Urgent 12/28/2024 8:34 AM EDT CBC WITH AUTO DIFFERENTIAL Urgent 12/28/2024 8:34 AM EDT BASIC METABOLIC PANEL Urgent 12/28/2024 8:34 AM EDT POCT GLUCOSE FINGERSTICK Routine 12/28/2024 8:14 AM EDT POCT GLUCOSE FINGERSTICK Routine 12/27/2024 7:55 PM EDT POCT GLUCOSE FINGERSTICK Routine 12/27/2024 6:02 PM EDT POCT GLUCOSE FINGERSTICK Routine 12/27/2024 11:55 AM EDT POTASSIUM Timed 12/27/2024 10:16 AM EDT CBC (NO DIFF) Urgent 12/27/2024 7:50 AM EDT BASIC METABOLIC PANEL Urgent 12/27/2024 7:50 AM EDT LIPID PANEL Urgent 12/27/2024 7:50 AM EDT HEMOGLOBIN A1C Urgent 12/27/2024 7:50 AM EDT POCT GLUCOSE [...] - IMAGING 12/26/2024 SCANNED - IMAGING 12/26/2024 from Last 3 Months Results * (ABNORMAL) POC Glucose Once (12/28/2024 12:06 PM EDT) Only the most recent of9 resultswithin the time period is included. Glucose 171(H) 70 - 130 mg/dL 12/28/2024 12:07 PM EDT [facility] Blood 12/28/2024 12:0 6 PM EDT 12/28/2024 12:07 PM EDT Kristy Pelayo MD POINT OF CARE TEST ORDERABLES Fi nal Result [facility]
[address] [place] [address], * (ABNORMAL) CBC Auto Differential (12/28/2024 8:34 AM EDT) WBC 8.99 3.40 - 10.80 10*3/mm3 12/28/2024 9:03 AM EDT [facility] RBC 3.90(L) 4.14 - 5.80 10*6/mm3 12/28/2024 9:03 AM [facility] Hemoglobin 13.1 13.0 - 17.7 g/dL 12/28/2024 9:03 AM [facility] Hematocrit 37.5 37.5 - 51.0 % 12/28/2024 9:03 AM [facility] MCV 96.2 79.0 - 97.0 fL 12/28/2024 9:03 AM [facility] MCH 33.6(H) 26.6 - 33.0 pg 12/28/2024 9:03 AM [facility] MCHC 34.9 31.5 - 35.7 g/dL 12/28/2024 9:03 AM [facility] RDW 11.7(L) 12.3 - 15.4 % 12/28/2024 9:03 AM [facility] RDW-SD 40.6 37.0 - 54.0 fl 12/28/2024 9:03 AM [facility] MPV 10.4 6.0 - 12.0 fL 12/28/2024 9:03 AM [facility] Platelets 172 140 - 450 10*3/mm3 12/28/2024 9:03 AM [facility] Neutrophil % 71.9 42.7 - 76.0 % 12/28/2024 9:03 AM [facility] Lymphocyte % 15.2(L) 19.6 - 45.3 % 12/28/2024 9:03 AM [facility] Monocyte % 7.5 5.0 - 12.0 % 12/28/2024 9:[facility] Eosinophil % 4.2 0.3 - 6.2 % 12/28/2024 9:03 [facility] Basophil % 0.8 0.0 - 1.5 % 12/28/2024 9:03 [facility] Immature Grans % 0.4 0.0 - 0.5 % 12/28/2024 9:03 [facility] Neutrophils, Absolute 6.46 1.70 - 7.00 10*3/mm3 12/28/2024 9:03 AM EDT [facility] Lymphocytes, Absolute 1.37 0.70 - 3.10 10*3/mm3 12/28/2024 9:03 AM EDT [facility] Monocytes, Absolute 0.67 0.10 - 0.90 10*3/mm3 12/28/2024 9:03 AM EDT [facility] Eosinophils, Absolute 0.38 0.00 - 0.40 10*3/mm3 12/28/2024 9:03 AM EDT [facility] Basophils, Absolute 0.07 0.00 - 0.20 10*3/mm3 12/28/2024 9:03 AM EDT [facility] Immature Grans, Absolute 0.04 0.00 - 0.05 10*3/mm3 12/28/2024 9:03 AM EDT [facility] nRBC 0.0 0.0 - 0.2 /100 WBC 12/28/2024 9:03 AM EDT [facility] Blood Venipuncture / Unknown 12/28/2024 8:34 AM EDT 12/28/2024 8:55 AM EDT us Marium Dos Santos MD LAB BLOOD ORDERABLES Fin al Result [facility]
[address] [place] [address], * (ABNORMAL) Basic Metabolic Panel (12/28/2024 8:34 AM EDT) Only the most recent of2 resultswithin the time period is included. Glucose 243(H) 65 - 99 mg/dL 12/28/2024 9:41 AM EDT [facility] BUN 30.9(H) 8.0 - 23.0 mg/dL 12/28/2024 9:41 AM EDT [facility] Creatinine 1.70(H) 0.76 - 1.27 mg/dL 12/28/2024 9:41 AM EDT [facility] Sodium 135(L) 136 - 145 mmol/L 12/28/2024 9:41 AM EDT [facility] Potassium 5.2 3.5 - 5.2 mmol/L 12/28/2024 9:41 AM EDT [facility] Chloride 100 98 - 107 mmol/L 12/28/2024 9:41 AM EDT [facility] CO2 25.0 22.0 - 29.0 mmol/L 12/28/2024 9:41 AM EDT [facility] Calcium 9.2 8.6 - 10.5 mg/dL 12/28/2024 9:41 AM EDT [facility] BUN/Creatinine Ratio 18.2 7.0 - 25.0 12/28/2024 9:41 AM EDT [facility] Anion Gap 10.0 5.0 - 15.0 mmol/L 12/28/2024 9:41 AM EDT [facility] eGFR 43.1(L) >60.0 mL/min/1.7 3 12/28/2024 9:41 AM T [facility] Blood Venipuncture / Unknown 12/28/2024 8:34 AM EDT 12/28/2024 8:55 AM EDT [facility] - 12/28/2024 9:41 AM EDT [...] MD LAB BLOOD ORDERABLES Fin al Result [facility]
[address] [place] [address], * Potassium (12/27/2024 10:16 AM EDT) Pathologist [facility] Potassium 4.9 3.5 - 5.2 mmol/L 12/27/2024 12:14 PM EDT [facility] Comment:Specimen hemolyzed. Result may be falsely elevated. Blood Venipuncture / Unknown 12/27/2024 10:16 AM EDT 12/27/2024 11:18 AM EDT Marium Dos Santos MD LAB BLOOD ORDERABLES Fin al Result [facility]
[address] [place] [address], * (ABNORMAL) CBC (No Diff) (12/27/2024 7:50 AM EDT) Pathologist [facility] WBC 7.20 3.40 - 10.80 10*3/mm3 12/27/2024 8:35 AM EDT [facility] RBC 3.83(L) 4.14 - 5.80 10*6/mm3 12/27/2024 8:35 AM EDT [facility] Hemoglobin 12.5(L) 13.0 - 17.7 g/dL 12/27/2024 8:35 AM EDT [facility] Hematocrit 37.0(L) 37.5 - 51.0 % 12/27/2024 8:35 AM EDT [facility] MCV 96.6 79.0 - 97.0 fL 12/27/2024 8:35 AM EDT [facility] MCH 32.6 26.6 - 33.0 pg 12/27/2024 8:35 AM EDT [facility] MCHC 33.8 31.5 - 35.7 g/dL 12/27/2024 8:35 AM EDT [facility] RDW 11.7(L) 12.3 - 15.4 % 12/27/2024 8:35 AM EDT [facility] RDW-SD 41.2 37.0 - 54.0 fl 12/27/2024 8:35 AM EDT [facility] MPV 10.4 6.0 - 12.0 fL 12/27/2024 8:35 AM EDT [facility] Platelets 155 140 - 450 10*3/mm3 12/27/2024 8:35 AM EDT [facility] Blood Venipuncture / Unknown 12/27/2024 7:50 AM EDT 12/27/2024 8:01 AM EDT Lynn Valle DO LAB BLOOD ORDERABLES Final Result Performing Organization Address [facility] Co de Phone Number [facility]
[address] [place] [address], * (ABNORMAL) Hemoglobin A1c (12/27/2024 7:50 AM EDT) Hemoglobin A1C 6.85(H) 4.80 - 5.60 % 12/27/2024 9:23 AM EDT [facility] Blood Venipuncture / Unknown 12/27/2024 7:50 AM EDT 12/27/2024 8:00 AM EDT Narrative [facility] - 12/27/2024 9:23 AM EDT Hemoglobin A1C Ranges: Increased Risk for Diabetes 5.7% to 6.4% Diabetes >= 6.5% Diabetic Goal < 7.0% Dania Chakraborty APRN LAB BLOOD ORDERABLES Fin al Result [facility]
[address] [place] [address], * (ABNORMAL) Lipid Panel (12/27/2024 7:50 AM EDT) Total Cholesterol 144 0 - 200 mg/dL 12/27/2024 8:36 AM EDT [facility] Triglycerides 270(H) 0 - 150 mg/dL 12/27/2024 8:36 AM EDT [facility] HDL Cholesterol 29(L) 40 - 60 mg/dL 12/27/2024 8:36 AM EDT [facility] LDL Cholesterol 71 0 - 100 mg/dL 12/27/2024 8:36 AM EDT [facility] VLDL Cholesterol 44(H) 5 - 40 mg/dL 12/27/2024 8:36 AM EDT [facility] LDL/HDL Ratio 2.10 12/27/2024 8:36 AM T [facility] Blood Venipuncture / Unknown 12/27/2024 7:50 AM EDT 12/27/2024 8:00 AM EDT [facility] - 12/27/2024 8:36 AM EDT [...] using the NIH LDL-C calculation. Dania Chakraborty BURGLAR ALARM INSPECTOR LAB BLOOD ORDERABLES Fin al Result [facility]
[address] [place] [address], * MRI Cervical Spine Without Contrast (12/27/2024 4:42 AM EDT) Anatomical Region Laterality Modality Spine, C-spine N/A Magnetic Resonan ce 12/27/2024 9:24 AM EDT Impressions 12/27/2024 9:49 AM EDT Impression: Moderate to severe multilevel degenerative changes of cervical spine as described above. Electronically Signed: Km Sanchez MD 12/27/2024 9:49 AM EDT Workstation ID: [id number] Narrative 12/27/2024 9:49 AM EDT MRI CERVICAL [...] MD 12/27/2024 9:49 AM EDT Workstation ID: [id number] Dania Chakraborty BURGLAR ALARM INSPECTOR IMG MRI ORDERABLES Final Result * MRI [...] AM EDT Workstation ID: [id number] Dania Chakraborty BURGLAR ALARM INSPECTOR IMG MRI ORDERABLES Final Result * ECHO COMPLETE W/ DOPPLER AND COLOR FLOW (12/26/2024 3:57 PM EDT) [facility] CV ECHO SHUNT ASSESSMENT PERFORMED (HIDDEN [...] Index (BP) 20.0 ml/m2 Med Peak E' Sicnere 7.6 cm/sec Lat Peak E' Sincere 12.8 [...] of agitated saline was administered. Dania Chakraborty APRN CV ECHO ORDERABLES Final Result * ECG Scan (12/26/2024) [facility] ECG ORDERABLES Final Result * IMAGING SCANNED (12/26/2024) Only the most recent of4 resultswithin the time period is included. Anatomical Region Laterality Modality Radiographic Cray ging us [facility] IMG DIAGNOSTIC IMAGING ORDERA BLES Final Result from Last 3 Months Insurance [facility] EMPLOYEE Advance Directives * CPR (Attempt to Resuscitate) (Latest Code Status on File) Date Activated Date Inactivated Comments 12/27/2024 4:28 AM 12/28/2024 6:48 PM Question Answer Comments Code Status (Patient has no pulse and is not breathing): CPR (Attempt to Resuscitate) Medical Interventions (Patie nt has pulse or is breathing): Full Support Level Of Support Discussed With: Patient Care Teams Carbon Coating Machine Operator Relationship Specialty Start Date End Date Manjeet Griffin MD [facility] [address] [place] [id number] PCP - General Adolescent Medicine 02/21/23
[2025-02-15 09:37] LABS: Anion Gap 10.5 mEq/L (5-15); Blood Urea Nitrogen 20 mg/dl (9-20); Calcium 9.1 mg/dl (8.4-10.2); Carbon Dioxide 28 mmol/L (22.0-30.0); Chloride 105 mmol/L (98-107); Creatinine,Serum 1.60 mg/dl (0.66-1.25); Estimated Glomerular Filt Rate 43 ml/min (>60); GFR (African American) 52 ML/MIN (>60); Glucose 120 mg/dl (74-100); Potassium 4.5 mmoL/L (3.5-5.1); Sodium 139 mmol/L (136-145)
== END 2025-02-15 23:59 | disposition home or self-care (01) ==
LOC: LAB 08:41
PROVIDERS: PCP Internal Medicine Adolescent Medicine; Visit Provider Nurse Practitioner Family
DX: E11.22 Type 2 diabetes mellitus with diabetic chronic kidney disease (principal); N18.30 Chronic kidney disease, stage 3 unspecified
CPT/HCPCS: 36415; 80048